=== PATIENT | male | born 1950 | race Caucasian/White ===

== ENCOUNTER 2017-11-01 16:37 | Inpatient (IN) | payer SELFPAY ==
[2017-11-01 16:59] LABS: Bilirubin Negative (Negative); Blood, Urine Negative (Negative); Clarity CLEAR (Clear); Glucose, Urine (Dipstick) Negative (Negative); Leukocyte Negative (Negative); Nitrite Negative (Negative); Protein, Urine (Dipstick) Negative (Neg-Trace); Specific Gravity, Urine 1.011 (1.002-1.036); pH, Urine 7.5 (5.0-9.0)
[2017-11-01 17:07] LABS: #Lymphocytes 0.9 thou/uL (1.20-3.40); #Monocytes 0.7 thou/uL (0.11-0.59); #Neutrophils 5.4 thou/uL (1.40-6.50); %Basophils 0.2 % (0.0-1.0); %Eosinophils 0.3 % (0.0-10.0); %Lymphocytes 12.8 % (21.0-51.0); %Monocytes 9.6 % (0.0-10.0); Hemoglobin 11.7 g/dL (14.0-18.0); Mean Corpuscular HGB CONC 35.4 g/dL (32.0-36.0); Mean Corpuscular Hemoglobin 32.1 pg (27.0-31.0); Mean Corpuscular Volume 90.7 fl (80.0-94.0); Mean Platelet Volume 6.8 fL (7.4-10.4); Platelet Count 290 thou/uL (130-400); RBC Distribution Width 12.3 % (11.5-14.5); Red Blood Cell (RBC) Count 3.66 mill/uL (4.70-6.10)
--- NOTE | 2017-11-01 17:23 | CT ---
HEAD CT NONCONTRAST 11/01/17 INDICATION: Altered mental status. No prior comparison. FINDINGS: Mild prominence of the ventricular system is present slightly out of proportion to the size of the ce rebral sulci. There is periventricular white matter hypoattenuation. No intracranial hemorrhage, mass effect or midline shift. There are fluid levels of the maxillary sinuses as well as scattered paran luz maria sinus mucosal thickening. IMPRESSION: 1. No acute intracranial hemorrhage. 2. Mild enlargement of the ventricular system slightly out of proportion for the size of the cer ebral sulci. Recommend clinical correlation to exclude normal pressure hydrocephalus, which is a clin ical diagnosis. 3. Periventricular white matter hypoattenuation which could be on the basis of ischemic disease versus sequela from transependymal CSF migration. 4. Bilateral maxillary sinus fluid levels. Correlate for evidence of acute sinusitis. POS: [facility]
[2017-11-01 17:27] LABS: ALT (SGPT) 9 U/L (8-55); AST (SGOT) 19 U/L (5-34); Albumin 4.1 g/dL (3.4-4.8); Alkaline Phosphatase 75 U/L (40-150); Anion Gap 13 mmol/L (10-20); BUN (Urea Nitrogen) 12 mg/dL (8.4-25.7); Bilirubin, Total 0.8 mg/dL (0.2-1.2); Calc. Creatinine Clearance 0 mL/min (70-130); Calcium 9.6 mg/dL (7.8-10.44); Carbon Dioxide 22 mmol/L (23-31); Chloride 79 mmol/L (98-107); Estimated GFR-MDRD Greater than 90; Globulin 2.8 g/dL (2.4-3.5); Glucose 107 mg/dL (80-115); Potassium 4.2 mmol/L (3.5-5.1); Protein, Total 6.9 g/dL (5.8-8.1)
[2017-11-01 17:32] LABS: CKMB 6.2 ng/mL (0-6.6); Troponin I Less than 0.010 ng/mL (< 0.028)
[2017-11-01 17:35] LABS: Sodium 110 mmol/L (136-145)
[2017-11-01] MEDS ORDERED: Ondansetron ODT 4 MG TAB SL PRN (20:54)
[2017-11-01] MEDS ORDERED: Acetaminophen 325 MG TAB PO PRN (20:54)
[2017-11-01] MEDS ORDERED: Ondansetron HCl/PF 4 MG/2 ML Vial IVP PRN (20:54)
[2017-11-01] MEDS: Sodium Chloride 0.9% 1,000 ML IV SCH ×2 (21:13→21:51)
[2017-11-01] MEDS: Famotidine/PF 20 mg/2ml Vial SLOW IVP SCH (21:51)
[2017-11-01] MEDS ORDERED: Polyethylene Glycol 3350 17 GM Packet PO PRN ×2 (22:31→23:38)
[2017-11-01] MEDS ORDERED: Preparation H HC 1% Cream 26 GM TUBE TOP PRN ×2 (22:41→23:38)
[2017-11-01] MEDS ORDERED: Ibuprofen 200 MG TAB PO PRN (22:42)
[2017-11-01] MEDS ORDERED: carBAMazepine 200 MG TAB PO SCH (22:45)
[2017-11-01] MEDS ORDERED: Ziprasidone 20 MG CAP PO SCH (22:45)
[2017-11-01] MEDS ORDERED: Carbidopa/Levodopa 10-100 mg Tablet PO SCH (22:45)
[2017-11-01] MEDS ORDERED: Lisinopril 20 MG TAB PO SCH (22:45)
[2017-11-01 22:52] VITALS: BMI 21.2
[2017-11-01] MEDS ORDERED: IBUPROFEN PO PRN (23:38)
[2017-11-02 00:13] LABS: Anion Gap 12 mmol/L (10-20); BUN (Urea Nitrogen) 9 mg/dL (8.4-25.7); Calc. Creatinine Clearance 97 mL/min (70-130); Calcium 8.9 mg/dL (7.8-10.44); Carbon Dioxide 21 mmol/L (23-31); Chloride 84 mmol/L (98-107); Estimated GFR-MDRD Greater than 90; Glucose 89 mg/dL (80-115); Potassium 3.8 mmol/L (3.5-5.1)
[2017-11-02 00:16] LABS: Sodium 113 mmol/L (136-145)
[2017-11-02 00:36] LABS: Osmolality, Serum 231 mOsm/kg (280-295)
[2017-11-02 01:05] LABS: Osmolality, Urine 181 mOsm/kg (300-900)
[2017-11-02 01:09] LABS: Sodium, Urine 37 mmol/L (Not Available)
[2017-11-02] MEDS: Diabetic Tussin 200 MG/10 ML UDCUP PO PRN (05:10)
[2017-11-02 05:50] LABS: Acanthocytes SLIGHT = 1-5 cells (100X) (None Seen); Band 5 % (5-11); Eosinophils 1 % (0-10); Hemoglobin 10.9 g/dL (14.0-18.0); Lymphocytes 22 % (21-51); MDiff Complete? YES; Mean Corpuscular HGB CONC 33.9 g/dL (32.0-36.0); Mean Corpuscular Hemoglobin 31.4 pg (27.0-31.0); Mean Corpuscular Volume 92.4 fl (80.0-94.0); Monocytes 9 % (0-10); Neutrophil 62 % (42-75); Platelet Count 222 thou/uL (130-400); RBC Distribution Width 12.2 % (11.5-14.5); Reactive Lymphocytes 1 % (0-10); Red Blood Cell (RBC) Count 3.49 mill/uL (4.70-6.10); White Blood Cell (WBC) Count 4.3 thou/uL (4.8-10.8)
[2017-11-02] MEDS: Sodium Chloride 0.9% 1,000 ML IV SCH (06:54)
--- NOTE | 2017-11-02 06:59 | HP ---
PRIMARY CARE PHYSICIAN: Dedra Patel MD HISTORY OF PRESENT ILLNESS: This is a 66-year-old male with a history of PTSD, Parkinson's, presents for mental status changes. The patient himself is unfortunately a very poor historian at this point in time, he is oriented to himself only. He thinks that he is in care home. He is unable to recall a month, date, or year and is unable to provide much of the history other than he is allergic to TETRACYCLINE. The patient is unable to tell me why he is here and endorses a mild headache, but otherwise has no other focal complaints. Per the ER records, it appears that he was sent in from his residential fpc for having altered mental status from approximately 1:00 p.m. to 3:00 p.m. earlier today. Per ER records, it seems that the fpc told EMS services that the patient did not know where he was, and had new onset gait difficulties. It is not clear, but it appears that at the time of EMS arrival, the patient is at his baseline. I am not sure if I am seeing the patient currently at his baseline or not. REVIEW OF SYSTEMS: Unable to obtain secondary to the above. HOME MEDICATIONS: As per indicated in the electronic medical record which is derived from records from the patient's fpc. The patient is unable to reconcile with me due to his poor cognitive status. ALLERGIES: The patient states that he is allergic to TETRACYCLINE. Unsure if this is a comprehensive list of allergies or not. PAST MEDICAL HISTORY: 1. The patient himself is unable to provide any history; however, per his ER record, it appears that he has a history of PTSD. 2. Depression. 3. Parkinsonism. 4. Mood disorder. 5. Constipation. 6. Hepatitis C. 7. Hypoosmolality. 8. Hyponatremia. SOCIAL HISTORY: Grossly unknown other than that the patient at one point in the recent past was in care home and currently at a fpc. The patient himself is unable to provide any further history. There are no obvious records that I could find in the emergency department at this point in time. PHYSICAL EXAMINATION: VITAL SIGNS: Temperature 97.4, pulse of 81, blood pressure 144/80, respirations 17, satting 100% on room air. GENERAL: Patient is seated in the hospital stretcher. He is awake. He is alert. He is conversant, answers questions; however accuracy of his answers is unclear as he is oriented only to himself. HEENT: Slightly dry mucous membranes. Poor dentition. Pupils are equal. Ocular motions are intact. The patient is normocephalic, atraumatic. Pupils are reactive. CARDIOVASCULAR: S1, S2. Pulses 2+ bilateral upper extremities. No murmurs, rubs, or gallops. RESPIRATORY: Reasonable air movement. No wheezes, rales, or rhonchi. Bilateral breath sounds. ABDOMEN: Positive bowel sounds, soft, nontender to palpation. MUSCULOSKELETAL: The patient is moving all 4 extremities equally. GENITOURINARY: For whatever reason, the patient appears to have self removed his briefs and he continues to do self manipulating his genitals during the encounter. LABORATORY DATA: WBC 7.0, hemoglobin 11.7, hematocrit 33.1, platelets 290. Sodium 110, potassium 4.2, chloride 79, bicarbonate 22, BUN 12, creatinine 0.79 , glucose 107, calcium 9.6, total bilirubin 0.8, AST 19, ALT 9, alkaline phosphatase 75, CK-MB 6.2, troponin less than 0.01. Serum total protein 6.9, albumin 4.1. UA is grossly bland. IMAGING: CT of the brain: Impression: No acute intracranial hemorrhage. Mild enlargement of the ventricular system, slightly out of proportion for the size of the cerebral sulci. Recommend clinical correlation to exclude normal pressure hydrocephalus which is a clinical diagnosis. Periventricular white matter hypoattenuation, which could be on the basis of ischemic disease versus sequelae from transependymal CSF migration. Bilateral maxillary sinus fluid levels. "No evidence of acute sinusitis." ASSESSMENT AND PLAN: A 66-year-old male brought in for altered mental status. 1. Altered mental status. The patient has been difficult to assess during this initial visit secondary to an unknown baseline for the patient with conflicting information passed on from [facility], EMS, ER regarding his actual baseline. 2. Hyponatremia. The patient has a noted history of hyponatremia in his records, but I do not have any baseline values for his sodium. That being said , he certainly has appreciably low sodium, we will consider starting with normal saline, serial BMPs with frequent neurological checks. The patient is currently be admitted to [facility]. I appreciate nephrology consultation for management of his hyponatremia. Will discontinue his HCTZ, check serum and urine osmols. Close serial neurological examinations. 3. Questionable mild hydrocephalus. This could also mild normal pressure hydrocephalus. Unclear if this is part of the etiology for the patient's unstable gait. It is unclear what sort of baseline gait the patient truly has. We will recommend close neurological monitoring and with gradual correction of the hyponatremia. If there is continued headache, gait difficulty, or altered mental status, consider a lumbar puncture for the patient. We will request a full set of records from the patient's fpc facility. 4. History of chronic hepatitis C. We will check ammonia level. His current LFTs appeared to be unremarkable. This is also to be contributing factor of his presentation. Continue home lactulose. Thank you for allowing me to participate in the care of your patient. If questions or concerns, contact me at [facility], the patient is admitted to [facility]. The patient is presumed to be FULL CODE as he is currently unable to make his own medical decisions and has no documented assistant district attorney or next of kin. JESSICA
[2017-11-02 07:01] LABS: Anion Gap 16 mmol/L (10-20); BUN (Urea Nitrogen) 8 mg/dL (8.4-25.7); Calc. Creatinine Clearance 91 mL/min (70-130); Calcium 8.8 mg/dL (7.8-10.44); Carbon Dioxide 16 mmol/L (23-31); Chloride 89 mmol/L (98-107); Estimated GFR-MDRD Greater than 90; Glucose 111 mg/dL (80-115); Potassium 3.6 mmol/L (3.5-5.1)
[2017-11-02 07:10] LABS: Sodium 117 mmol/L (136-145)
--- NOTE | 2017-11-02 08:52 | PRG ---
DATE OF SERVICE: 11/02/2017 SUBJECTIVE: The patient is seen and examined at bedside. He is doing significantly better. He is a ble to recognize the place that he is in the hospital. He knows the time, place and location. His m ental condition improved significantly. He just ate breakfast without any problems. OBJECTIVE: VITAL SIGNS: Blood pressure is 132/82, temperature is 98.1, respiratory rate is 18, O2 saturation is 96% on room air. HEENT: His head is atraumatic, normocephalic. Eyes PERRLA. Conjunctivae pinkish. Oral mucosa is m oist. NECK: Supple, no lymphadenopathy. Thyroid is not palpable. LUNGS: Breath sounds diminished at the right base. No wheezing, no rales. HEART: S1, S2 normal, no S3, no S4. ABDOMEN: Soft, nontender, bowel sounds are present. No organomegaly. EXTREMITIES: No clubbing, cyanosis or edema. NEUROLOGIC: He is able to follow my commands. He is able to move his all 4 extremities. He is aler t and oriented x4. There are no motor or sensory deficits at this point. Cranial nerves are intact. LABORATORY DATA: Showed a white count of 4.3, hemoglobin of 10.9, hematocrit 32.2, platelet count is 222. Sodium of 117, potassium 3.6, chloride 89, CO2 16, BUN 8, creatinine 0.74. The rest of chemis try is within normal limits. Urine osmolality is 181 and urine sodium is 37. IMPRESSION: 1. Altered mental status, significantly improved with improvement of his hyponatremia, most likely r elated to that. 2. Hyponatremia with low serum osmolality in euvolemic patient, so suspicion is for an syndrome of i nappropriate antidiuretic hormone secretion of unclear etiology at this point. 3. Questionable marked hydrocephalus on the CT. We will assess this along with the clinical present ation whether this is a real concern. 4. History of chronic hepatitis C, chronic. 5. Chronic cough again of unclear etiology. We will obtain chest x-ray. He is on cough medications at this point and Pulmonary will see him. DISCUSSION: His sodium improved from 110 to 117 with 100 mL of normal saline IV piggyback, so we are going to stop his IV fluids at this point and go back to rn care manager whether there is some concern regarding the velocity of the sodium improvement at this point. Dr. Jay is spa consultant. We will try to get hold of him and clarify that, so as I mentioned above, I will obtain a chest x-ray. Pulmonary w ill see the patient and clinically he improved to the point that he does not need IV fluids and we wi ll keep on sodium restriction.
[2017-11-02] MEDS ORDERED: Amlodipine 5 MG TAB PO SCH ×2 (09:00)
[2017-11-02] MEDS ORDERED: Non-Formulary Item 1 EACH (Omeprazole [Omeprazole] 40 MG) PO SCH (09:00)
[2017-11-02] MEDS ORDERED: FLU VACC TS2017-18 (>65YR) 0.5 ML SYRINGE IM ONE (09:00)
[2017-11-02] MEDS ORDERED: Prevnar 13-Val Conj/PF 0.5 ML SYRINGE IM ONE (09:00)
[2017-11-02] MEDS ORDERED: Docusate 100 MG CAP PO SCH (09:00)
[2017-11-02] MEDS ORDERED: ZIPRASIDONE HCL 40 MG PO SCH (09:00)
[2017-11-02] MEDS ORDERED: Lisinopril 20 MG TAB PO SCH ×2 (09:00)
[2017-11-02] MEDS ORDERED: carBAMazepine 200 MG TAB PO SCH (09:00)
[2017-11-02] MEDS ORDERED: Benztropine 1 MG TAB PO SCH (09:00)
[2017-11-02] MEDS ORDERED: Hydrochlorothiazide 25 MG TAB PO SCH ×2 (09:00)
[2017-11-02] MEDS ORDERED: Citalopram 20 MG TAB PO SCH ×2 (09:00)
[2017-11-02] MEDS ORDERED: Carbidopa/Levodopa 10-100 mg Tablet PO SCH (09:00)
[2017-11-02] MEDS: carBAMazepine 200 MG TAB PO SCH ×2 (09:11→20:42)
[2017-11-02] MEDS: Famotidine/PF 20 mg/2ml Vial SLOW IVP SCH ×2 (09:11→20:44)
[2017-11-02] MEDS: Benztropine 1 MG TAB PO SCH ×2 (09:11→20:42)
[2017-11-02] MEDS: Ziprasidone 20 MG CAP PO SCH ×2 (09:11→15:20)
[2017-11-02] MEDS: Docusate 100 MG CAP PO SCH ×2 (09:11→20:44)
[2017-11-02] MEDS: Carbidopa/Levodopa 10-100 mg Tablet PO SCH ×3 (09:11→20:42)
[2017-11-02] MEDS: Amlodipine 5 MG TAB PO SCH ×2 (09:12→20:43)
[2017-11-02] MEDS: Enoxaparin Sodium 40 MG/0.4 ML SYRINGE SC SCH (09:12)
--- NOTE | 2017-11-02 10:05 | RAD ---
CHEST 1 VIEW: HISTORY: Cough. FINDINGS: No comparison. Cardiac silhouette is magnified by projection. Pulmonary vasculature is unremarkable . Lungs are hyperinflated with scattered areas of linear scarring. Calcified granulomata are consis tent with healed granulomatous disease. There is no lobar consolidation or evidence of pneumothorax. IMPRESSION: Chronic obstructive pulmonary disease. POS: [facility]
--- NOTE | 2017-11-02 11:12 | CON ---
DATE OF CONSULTATION: 11/02/2017 NEPHROLOGY CONSULTATION REASON FOR CONSULTATION: Hyponatremia. TIME OF CONSULTATION: 9:00 a.m. HISTORY OF PRESENT ILLNESS: This is a very pleasant 66-year-old gentleman who presented to the [facility] who cannot give history, but was noted to have a sodium of 110, so I was consulted on 11/02/2017 at 9:00 a.m. The patient's sodium has corrected from 110 to 117 this morning with normal saline. Th e patient denies any complaints, no headache, numbness, tingling or weakness. PAST MEDICAL HISTORY: Significant for hypertension, Parkinson's, PTSD, history of hepatitis C, hypon atremia, history of excessive fluid intake, history of some mental disorder. SOCIAL FAMILY HISTORY: Patient is recently in longterm. The patient has an electronic monitor. Has no history of alcohol or drug use. REVIEW OF SYSTEMS: Unobtainable. PHYSICAL EXAMINATION: GENERAL: Patient is awake, alert. VITAL SIGNS: Afebrile, pulse 82, breathing at 16, blood pressure 132/82. GENERAL APPEARANCE AND MENTAL STATUS: Fair. HEAD/NECK: Normocephalic, atraumatic. EYES: EOMI. No deformity. EARS: Clear. No ulcers. NOSE: Intact. No lesions. MOUTH: Clear. No discharge. THROAT: Clear. No exudate. LUNGS: Clear. No crackles. CARDIAC: S1, S2. No rub. ABDOMEN: Benign. BS+. GENITALIA/RECTUM: Goyal absent. BACK/EXTREMITIES: Edema 0+ Ulcer-. NEUROLOGICAL: Alert and motor intact. SKIN: Rash- Bruise- LYMPHATICS: Edema- Ulcer-. LABORATORY DATA: Show sodium 117, creatinine 0.7. ASSESSMENT AND RECOMMENDATIONS: 1. Hyponatremia, most likely because of excessive fluid intake, likely appears to be acute. I would recommend no fluid restriction and monitor sodium closely. If the sodium corrects any further, we w ill try to keep the sodium less than 120 in 48 hours. 2. Hypertension, stable. 3. Medications based on glomerular filtration rate are appropriate.
[2017-11-02 12:55] LABS: Anion Gap 12 mmol/L (10-20); BUN (Urea Nitrogen) 9 mg/dL (8.4-25.7); Calc. Creatinine Clearance 93 mL/min (70-130); Calcium 9.2 mg/dL (7.8-10.44); Carbon Dioxide 24 mmol/L (23-31); Chloride 88 mmol/L (98-107); Estimated GFR-MDRD Greater than 90; Glucose 80 mg/dL (80-115); Potassium 4.1 mmol/L (3.5-5.1); Sodium 120 mmol/L (136-145)
[2017-11-02 19:24] LABS: Anion Gap 9 mmol/L (10-20); BUN (Urea Nitrogen) 9 mg/dL (8.4-25.7); Calc. Creatinine Clearance 87 mL/min (70-130); Calcium 8.9 mg/dL (7.8-10.44); Carbon Dioxide 27 mmol/L (23-31); Chloride 90 mmol/L (98-107); Estimated GFR-MDRD Greater than 90; Glucose 143 mg/dL (80-115); Sodium 122 mmol/L (136-145)
--- NOTE | 2017-11-02 20:17 | CON ---
DATE OF CONSULTATION: 11/02/2017 HISTORY OF PRESENT ILLNESS: Mr. Cantu is a 66-year-old male, pulmonary consult, who was in the [facility]. He has a history of hyponatremia in the past. He is actually a poor historian. He apparently was in [facility] in the [place] because he still wearing a [place] tracking bracelet. It is unclear whether or not they know he is over here and still has a bracelet. It seems unusual, this would be in place. It was still functional and he is in [place]. In any event, he presented with hyponatremia that is severe. This has been partially corrected. I was consulted to assist in his management because of his presence in the IMU. He says several months ago he had to be in the hospital for low sodium. He said they "gave me sodium back" to fix my high sodium, but they did not change any of his medicines. PAST MEDICAL HISTORY: Remarkable for Parkinson's disease, hypertension, hepatitis C. He has been told in the past he drinks too much water. He says he has 8 large glasses of water a day. SOCIAL HISTORY: He is a nonsmoker, nondrinker. ALLERGIES: He reports no drug allergies. FAMILY HISTORY: Negative for lung disease at an early age. REVIEW OF SYSTEMS: 12 point system review otherwise negative. He actually has no complaints. PHYSICAL EXAMINATION: GENERAL: He has a latency of response it is about 3-4 seconds for every question. VITAL SIGNS: He is afebrile, heart rate 72, respiratory rate 20, oximetry is 98 on room air, blood pressure 118/77. HEENT: Pupils are equal and reactive. Sclerae is anicteric. He is kyphotic. LUNGS: Clear. HEART: Regular rhythm. S1 and S2 are normal. ABDOMEN: Soft and nontender. EXTREMITIES: Without clubbing, cyanosis, or edema. He has a left black tracking bracelet on his lower extremity. LABORATORY DATA: White count 4.3, hemoglobin 10.9, platelets 222. Sodium is up from 113 last night to 120 today. His electrolytes are normal. IMPRESSION: Hyponatremia, recurrent. 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 We will discontinue this. I have discussed discontinuing this with him. He says it has helped his depression, but also tells me he has been depressed lately. I would fluid restriction him with 1000 mL today. He can move out of the Intermediate Care Unit at any time. A 70-minute consult was greater than 50% time spending in coordinating care. 70 minutes spent on consult of that time 50% was spent on unit with coordination of care. JESSICA
[2017-11-03 00:19] LABS: Anion Gap 10 mmol/L (10-20); BUN (Urea Nitrogen) 10 mg/dL (8.4-25.7); Calc. Creatinine Clearance 81 mL/min (70-130); Calcium 8.8 mg/dL (7.8-10.44); Carbon Dioxide 26 mmol/L (23-31); Chloride 91 mmol/L (98-107); Estimated GFR-MDRD Greater than 90; Glucose 113 mg/dL (80-115); Potassium 3.5 mmol/L (3.5-5.1); Sodium 123 mmol/L (136-145)
[2017-11-03] MEDS: Diabetic Tussin 200 MG/10 ML UDCUP PO PRN (04:01)
[2017-11-03 09:05] LABS: #Basophils 0.1 thou/uL (0.0-0.2); #Lymphocytes 0.9 thou/uL (1.20-3.40); #Monocytes 0.6 thou/uL (0.11-0.59); #Neutrophils 2.7 thou/uL (1.40-6.50); %Basophils 1.2 % (0.0-1.0); %Eosinophils 0.3 % (0.0-10.0); %Lymphocytes 21.1 % (21.0-51.0); %Monocytes 13.9 % (0.0-10.0); %Neutrophils 63.6 % (42.0-75.0); Hemoglobin 11.3 g/dL (14.0-18.0); Mean Corpuscular HGB CONC 33.2 g/dL (32.0-36.0); Mean Corpuscular Hemoglobin 30.9 pg (27.0-31.0); Mean Corpuscular Volume 93.2 fl (80.0-94.0); Mean Platelet Volume 6.9 fL (7.4-10.4); Platelet Count 241 thou/uL (130-400); RBC Distribution Width 12.4 % (11.5-14.5); Red Blood Cell (RBC) Count 3.67 mill/uL (4.70-6.10); White Blood Cell (WBC) Count 4.2 thou/uL (4.8-10.8)
[2017-11-03 09:25] LABS: Anion Gap 10 mmol/L (10-20); BUN (Urea Nitrogen) 8 mg/dL (8.4-25.7); Calc. Creatinine Clearance 86 mL/min (70-130); Carbon Dioxide 23 mmol/L (23-31); Chloride 92 mmol/L (98-107); Estimated GFR-MDRD Greater than 90; Glucose 110 mg/dL (80-115); Potassium 3.9 mmol/L (3.5-5.1); Sodium 121 mmol/L (136-145)
[2017-11-03] MEDS: Ziprasidone 20 MG CAP PO SCH ×2 (10:21→18:25)
[2017-11-03] MEDS: Benztropine 1 MG TAB PO SCH ×2 (10:21→20:07)
[2017-11-03] MEDS: Amlodipine 5 MG TAB PO SCH ×2 (10:21→20:07)
[2017-11-03] MEDS: Famotidine/PF 20 mg/2ml Vial SLOW IVP SCH ×2 (10:22→20:08)
[2017-11-03] MEDS: Docusate 100 MG CAP PO SCH ×2 (10:22→20:07)
[2017-11-03] MEDS: carBAMazepine 200 MG TAB PO SCH ×2 (10:22→20:07)
[2017-11-03] MEDS: Carbidopa/Levodopa 10-100 mg Tablet PO SCH ×3 (10:22→20:07)
[2017-11-03] MEDS: Enoxaparin Sodium 40 MG/0.4 ML SYRINGE SC SCH (10:22)
--- NOTE | 2017-11-03 12:11 | PRG ---
DATE OF SERVICE: 11/03/2017 SUBJECTIVE: Mr. Cantu did well overnight. OBJECTIVE: VITAL SIGNS: He is afebrile. Heart rate 67, respiratory rate is 18, oximetry is 97% on room air and blood pressure 143/85. LUNGS: Clear. HEART: Regular rhythm. LABORATORY DATA: White count is 4.2, hemoglobin 11.3 and platelets 241. Sodium is 121. Remainder o f his electrolytes are unremarkable. IMPRESSION: Syndrome of inappropriate antidiuretic hormone, most likely because of Celexa. PLAN: Transfer out of the intermediate care unit. Continue to monitor his electrolytes.
[2017-11-03 12:43] LABS: Anion Gap 9 mmol/L (10-20); BUN (Urea Nitrogen) 8 mg/dL (8.4-25.7); Calc. Creatinine Clearance 86 mL/min (70-130); Calcium 8.9 mg/dL (7.8-10.44); Carbon Dioxide 25 mmol/L (23-31); Chloride 91 mmol/L (98-107); Estimated GFR-MDRD Greater than 90; Glucose 125 mg/dL (80-115); Potassium 3.7 mmol/L (3.5-5.1); Sodium 121 mmol/L (136-145)
--- NOTE | 2017-11-03 13:36 | PDOC.PN ---
- Subjective Encounter Start Date: 11/03/17 Encounter Start Time: 13:39 Subjective: Only complaint is a cough which is chronic -: No acute events overnight -: CXR- [employer]. Nothing acute. - Objective Resuscitation Status: Resuscitation Status FULL:Full Resuscitation Vital Signs & Weight: Vital Signs (12 hours) Temp Pulse Resp BP Pulse Ox 11/03/17 11:46 98.4 F 67 18 143/85 H 97 11/03/17 10:21 65 11/03/17 08:00 98.4 F 65 18 98 11/03/17 07:48 98.4 F 65 18 122/71 98 11/03/17 03:54 97.7 F 70 15 128/62 95 Weight Weight 142 lb 14.4 oz I&O: 11/02/17 11/03/17 11/04/17 06:59 06:59 06:59 Intake Total 3200 1665 Output Total 1830 2550 Balance 1370 -885 Result Diagrams: 11/03/17 08:57 11/03/17 12:09 Phys Exam - Physical Examination Constitutional: NAD HEENT: PERRLA, moist MMs, sclera anicteric Neck: supple, full ROM Respiratory: no wheezing, no rales, no rhonchi, clear to auscultation bilateral Cardiovascular: RRR, no significant murmur, no rub Gastrointestinal: soft, non-tender, no distention, positive bowel sounds Musculoskeletal: no edema, pulses present Neurological: non-focal, moves all 4 limbs Tremors, worse on left upper extremity Psychiatric: normal affect, A&O x 3 Skin: no rash, normal turgor Dx/Plan (1) SIADH (syndrome of inappropriate ADH production) Status: Acute Comment: Likely 2/2 Celexa. has been discontinued. AMS has resolved. Will continue fluid restriction and monitor. (2) Parkinson disease Code(s): G20 - PARKINSON'S DISEASE Status: Chronic Comment: Continue home medications. (3) Acute encephalopathy Code(s): G93.40 - ENCEPHALOPATHY, UNSPECIFIED Status: Resolved Comment: s/s hyponatremia (4) Chronic hepatitis Code(s): K73.9 - CHRONIC HEPATITIS, UNSPECIFIED Status: Chronic Comment: Hep C (5) HTN (hypertension) Code(s): I10 - ESSENTIAL (PRIMARY) HYPERTENSION Status: Acute Qualifiers: Hypertension type: essential hypertension Qualified Code(s): I10 - Essential (primary) hypertension Comment: Continue Amlodipine. HCTS held (SiADH) and Lisinopril. - Plan cont current plan of care, PT/OT, DVT proph w/lovenox Stable. Will transfer out of CCU -: Monitor serum soium * .
[2017-11-03 18:53] LABS: Anion Gap 10 mmol/L (10-20); BUN (Urea Nitrogen) 8 mg/dL (8.4-25.7); Calc. Creatinine Clearance 82 mL/min (70-130); Calcium 9.4 mg/dL (7.8-10.44); Carbon Dioxide 27 mmol/L (23-31); Chloride 92 mmol/L (98-107); Estimated GFR-MDRD Greater than 90; Glucose 174 mg/dL (80-115); Potassium 3.7 mmol/L (3.5-5.1); Sodium 125 mmol/L (136-145)
--- NOTE | 2017-11-04 00:06 | PRG ---
DATE OF SERVICE: 11/03/2017 SUBJECTIVE: Patient was seen and examined at bedside and overnight events noted. Patient denies any shortness of breath or chest pain or palpitation. No history of nausea or vomiting or diarrhea or f ever or chills or cramps. OBJECTIVE: GENERAL: This is a well-built white male, in no apparent distress. VITAL SIGNS: Temperature 97.8, pulse 72, respiration 18, blood pressure 126/70. HEENT: Atraumatic, normocephalic. Oral mucosa is moist. NECK: Supple. CARDIOVASCULAR: S1, S2 heard. Rate and rhythm regular. RESPIRATORY: Clear to auscultation. GASTROINTESTINAL: Abdomen is soft. MUSCULOSKELETAL: No tenderness. No edema. DERMATOLOGIC: No skin rash. NEUROLOGIC: Alert and awake and oriented x3. No focal neurologic deficits. Moving all the extremiti es. PSYCHIATRIC: Mood and affect normal. LABORATORY DATA: Potassium is 3.7, sodium is 121, BUN is 8, and creatinine 0.7. ASSESSMENT AND PLAN: 1. Hyponatremia, most likely is from polydipsia. Medication, Celexa being stopped. Sodium level is stable. Patient is asymptomatic. We will monitor. 2. Hypochloremia. 3. Hypertension. 4. Edema . 5. Continue on fluid restriction and monitor sodium and we will follow.
[2017-11-04 00:33] LABS: Anion Gap 10 mmol/L (10-20); BUN (Urea Nitrogen) 10 mg/dL (8.4-25.7); Calc. Creatinine Clearance 81 mL/min (70-130); Calcium 8.8 mg/dL (7.8-10.44); Carbon Dioxide 26 mmol/L (23-31); Chloride 96 mmol/L (98-107); Estimated GFR-MDRD Greater than 90; Glucose 101 mg/dL (80-115); Potassium 3.8 mmol/L (3.5-5.1); Sodium 128 mmol/L (136-145)
[2017-11-04 04:39] LABS: #Monocytes 0.5 thou/uL (0.11-0.59); #Neutrophils 1.8 thou/uL (1.40-6.50); %Basophils 1.3 % (0.0-1.0); %Eosinophils 0.4 % (0.0-10.0); %Lymphocytes 30.4 % (21.0-51.0); %Monocytes 13.9 % (0.0-10.0); %Neutrophils 54.1 % (42.0-75.0); Hemoglobin 10.4 g/dL (14.0-18.0); Mean Corpuscular HGB CONC 33.3 g/dL (32.0-36.0); Mean Corpuscular Hemoglobin 31.3 pg (27.0-31.0); Mean Corpuscular Volume 93.9 fl (80.0-94.0); Mean Platelet Volume 6.8 fL (7.4-10.4); Platelet Count 228 thou/uL (130-400); RBC Distribution Width 12.4 % (11.5-14.5); Red Blood Cell (RBC) Count 3.32 mill/uL (4.70-6.10); White Blood Cell (WBC) Count 3.4 thou/uL (4.8-10.8)
[2017-11-04 04:54] LABS: Anion Gap 8 mmol/L (10-20); BUN (Urea Nitrogen) 10 mg/dL (8.4-25.7); Calc. Creatinine Clearance 81 mL/min (70-130); Calcium 8.9 mg/dL (7.8-10.44); Carbon Dioxide 27 mmol/L (23-31); Chloride 95 mmol/L (98-107); Estimated GFR-MDRD Greater than 90; Glucose 94 mg/dL (80-115); Potassium 3.8 mmol/L (3.5-5.1); Sodium 126 mmol/L (136-145)
[2017-11-04] MEDS: Carbidopa/Levodopa 10-100 mg Tablet PO SCH ×3 (08:38→22:25)
[2017-11-04] MEDS: Docusate 100 MG CAP PO SCH ×2 (08:38→22:19)
[2017-11-04] MEDS: Benztropine 1 MG TAB PO SCH ×2 (08:38→22:19)
[2017-11-04] MEDS: Famotidine/PF 20 mg/2ml Vial SLOW IVP SCH ×2 (08:38→22:21)
[2017-11-04] MEDS: Enoxaparin Sodium 40 MG/0.4 ML SYRINGE SC SCH (08:39)
[2017-11-04] MEDS: carBAMazepine 200 MG TAB PO SCH ×2 (08:39→22:20)
[2017-11-04] MEDS: Amlodipine 5 MG TAB PO SCH ×2 (08:39→22:20)
[2017-11-04] MEDS: Ziprasidone 20 MG CAP PO SCH ×2 (08:39→17:30)
--- NOTE | 2017-11-04 14:20 | PRG ---
DATE OF SERVICE: 11/04/2017 SUBJECTIVE: Patient was seen and examined at bedside and overnight events noted. Patient denies any shortness of breath or chest pain or palpitation. No history of nausea or vomiting or diarrhea or f ever or chills or cramps. OBJECTIVE: GENERAL: This is a well-built male in no apparent distress. VITAL SIGNS: Temperature 98.0, pulse 74, respiratory 18, blood pressure 122/70. HEENT: Atraumatic, normocephalic. Oral mucosa is moist. NECK: Supple. CARDIOVASCULAR: S1, S2 heard. Rate and rhythm regular. RESPIRATORY: Clear to auscultation. GASTROINTESTINAL: Abdomen is soft. MUSCULOSKELETAL: No tenderness, no edema. DERMATOLOGIC: No skin rash. NEUROLOGIC: Alert and awake and oriented x3. No focal neurologic deficits. Moving all the extremit ies. PSYCHIATRIC: Mood and affect normal. LABORATORY DATA: Sodium is 126, BUN is 10, creatinine 0.8. ASSESSMENT AND PLAN: 1. Hyponatremia, most likely from polydipsia and medications. Sodium level is stable. Most likely baseline sodium, continue on fluid restriction and follow. 2. Hypochloremia. 3. Hypertension, stable. 4. Edema, controlled. 5. Continue on fluid restriction.
--- NOTE | 2017-11-04 14:36 | PDOC.PN ---
- Subjective Encounter Start Date: 11/04/17 Encounter Start Time: 14:35 Subjective: More alert today. AO x 3 -: No acute events overnight. - Objective Resuscitation Status: Resuscitation Status FULL:Full Resuscitation MAR Reviewed: Yes Vital Signs & Weight: Vital Signs (12 hours) Temp Pulse Resp BP Pulse Ox 11/04/17 08:00 98 F 75 18 122/70 100 11/04/17 04:00 98.2 F 72 18 148/88 H 96 Weight Weight 142 lb 14.4 oz I&O: 11/03/17 11/04/17 11/05/17 06:59 06:59 06:59 Intake Total 1665 840 800 Output Total 2550 1050 Balance -885 -210 800 Result Diagrams: 11/04/17 03:58 11/04/17 03:58 Additional Labs: Accuchecks 11/04/17 11/03/17 04:37 15:45 POC Glucose 120 H 86 Phys Exam - Physical Examination Constitutional: NAD HEENT: PERRLA, moist MMs, sclera anicteric Neck: supple, full ROM Respiratory: no wheezing, no rales, no rhonchi, clear to auscultation bilateral Cardiovascular: RRR, no significant murmur, no rub Gastrointestinal: soft, non-tender, no distention, positive bowel sounds Musculoskeletal: no edema, pulses present Neurological: non-focal, moves all 4 limbs Psychiatric: normal affect, A&O x 3 Skin: no rash Dx/Plan (1) SIADH (syndrome of inappropriate ADH production) Status: Acute Comment: mentation improved. Likely 2/2 Celexa. has been discontinued. AMS has resolved. Will continue fluid restriction and monitor. Nephrology on board. Recs appreciated. (2) Parkinson disease Code(s): G20 - PARKINSON'S DISEASE Status: Chronic Comment: Continue home medications. (3) Chronic hepatitis Code(s): K73.9 - CHRONIC HEPATITIS, UNSPECIFIED Status: Chronic Comment: Hep C (4) HTN (hypertension) Code(s): I10 - ESSENTIAL (PRIMARY) HYPERTENSION Status: Acute Qualifiers: Hypertension type: essential hypertension Qualified Code(s): I10 - Essential (primary) hypertension Comment: Continue Amlodipine. HCTZ held (SiADH) and Lisinopril. (5) Acute encephalopathy Code(s): G93.40 - ENCEPHALOPATHY, UNSPECIFIED Status: Resolved Comment: 2/2 hyponatremia - Plan cont current plan of care, PT/OT, perinatal social worker CM working on placement. PT recommends jail. * .
[2017-11-05 08:17] VITALS: BP 132/78; TEMP 98.2
[2017-11-05] MEDS: Benztropine 1 MG TAB PO SCH (09:57)
[2017-11-05] MEDS: Amlodipine 5 MG TAB PO SCH (09:58)
[2017-11-05] MEDS: Ziprasidone 20 MG CAP PO SCH (09:58)
[2017-11-05] MEDS: carBAMazepine 200 MG TAB PO SCH (09:59)
[2017-11-05] MEDS: Carbidopa/Levodopa 10-100 mg Tablet PO SCH (09:59)
[2017-11-05] MEDS: Docusate 100 MG CAP PO SCH (09:59)
[2017-11-05] MEDS: Famotidine/PF 20 mg/2ml Vial SLOW IVP SCH (10:00)
[2017-11-05] MEDS: Enoxaparin Sodium 40 MG/0.4 ML SYRINGE SC SCH (10:02)
[2017-11-05 11:01] LABS: #Monocytes 0.4 thou/uL (0.11-0.59); #Neutrophils 1.8 thou/uL (1.40-6.50); %Basophils 0.7 % (0.0-1.0); %Eosinophils 0.9 % (0.0-10.0); %Lymphocytes 31.3 % (21.0-51.0); %Monocytes 11.5 % (0.0-10.0); %Neutrophils 55.6 % (42.0-75.0); Hemoglobin 12.1 g/dL (14.0-18.0); Mean Corpuscular HGB CONC 32.4 g/dL (32.0-36.0); Mean Corpuscular Hemoglobin 30.9 pg (27.0-31.0); Mean Corpuscular Volume 95.3 fl (80.0-94.0); Mean Platelet Volume 6.5 fL (7.4-10.4); Platelet Count 275 thou/uL (130-400); RBC Distribution Width 12.4 % (11.5-14.5); Red Blood Cell (RBC) Count 3.91 mill/uL (4.70-6.10); White Blood Cell (WBC) Count 3.3 thou/uL (4.8-10.8)
[2017-11-05 11:25] LABS: Anion Gap 11 mmol/L (10-20); BUN (Urea Nitrogen) 10 mg/dL (8.4-25.7); Calc. Creatinine Clearance 78 mL/min (70-130); Calcium 9.5 mg/dL (7.8-10.44); Carbon Dioxide 28 mmol/L (23-31); Chloride 98 mmol/L (98-107); Estimated GFR-MDRD Greater than 90; Glucose 90 mg/dL (80-115); Potassium 4.7 mmol/L (3.5-5.1); Sodium 132 mmol/L (136-145)
--- NOTE | 2017-11-05 19:15 | PRG ---
DATE OF SERVICE: 11/05/2017 SUBJECTIVE: Patient was seen and examined at bedside and overnight events noted. Patient denies any shortness of breath or chest pain or palpitation. No history of nausea or vomiting or diarrhea or f ever or chills or cramps. OBJECTIVE: GENERAL: This is a thin-built male in no apparent distress. VITAL SIGNS: Temperature 98.2, pulse 70, respiratory rate 18, blood pressure 132/78. HEENT: Atraumatic, normocephalic. Oral mucosa is moist. NECK: Supple. CARDIOVASCULAR: S1, S2 heard. Rate and rhythm regular. RESPIRATORY: Clear to auscultation. GASTROINTESTINAL: Abdomen is soft. MUSCULOSKELETAL: No tenderness. No edema. DERMATOLOGIC: No skin rash. NEUROLOGIC: Alert and awake and oriented x3. No focal neurologic deficits. Moving all the extremiti es. PSYCHIATRIC: Mood and affect normal. LABORATORY DATA: Sodium is 132, potassium is 4.7, BUN is 10, creatinine 0.83. ASSESSMENT AND PLAN: 1. Hyponatremia, most likely from medication and polydipsia. 2. SIADH. The patient was advised to limit fluid intake and hold on Celexa. Patient wants his Vivienne xa back. Advised to follow with his Psychiatry. 3. Hypochloremia. 4. Hypertension. 5. Edema controlled. 6. Continue on fluid restriction. Recommend alternatives with Celexa for psychotropic medications. We will follow.
[2017-11-05] MEDS ORDERED: Famotidine 20 MG TAB PO SCH (21:00)
--- NOTE | 2017-11-05 22:16 | DIS ---
DATE OF ADMISSION: 11/01/2017 DATE OF DISCHARGE: 11/05/2017 DISCHARGE DIAGNOSES: Syndrome of inappropriate antidiuretic hormone secretion, parkinsonism, depress ion, mood disorder, hepatitis C. HISTORY OF PRESENT ILLNESS/HOSPITAL COURSE: A 66-year-old male with history of PTSD, Parkinson's who presented to the emergency room with altered mental status. At the time of admission, he was orient ed to himself only and thinks he is in nursing home. Unable to recall month, date, or year. Unable to provi de much of the history other than that he is allergic to TETRACYCLINE. According to ER records, he w as sent in from his residential [facility] for having altered mental status, approximately 1:00 p.m . on the day of admission. Per ER, his labs revealed sodium of 110, potassium 4.2, BUN of 12, creati nine of 0.79. Serum osmolality was low. He was then admitted for hyponatremia likely secondary to s yndrome of inappropriate antidiuretic hormone secretion. Nephrology consult was also obtained. He w as monitored in IMCU and recommendation was to be for him to be placed on fluid restriction. He resp onded to treatment and by discharge, his sodium was 132. Patient was alert and well oriented and was stable for discharge to his [facility]. DISCHARGE MEDICATIONS: Omeprazole 40 mg daily, amlodipine 5 mg daily, MiraLax 17 grams orally as nee ded for constipation, hydrocortisone 1% cream to be applied topically 3 times a day as needed for skylar h/itching, hydrochlorothiazide 25 mg daily, docusate 100 mg twice a day, carbamazepine 200 mg twice a day, benztropine mesylate 0.5 mg orally twice a day, guaifenesin 10 mL orally every 6 hours as neede d for cough, ziprasidone HCL 40 mg oral twice a day, lisinopril 20 mg twice daily, lactulose 20 mg da alexx as needed for constipation, ibuprofen 2 tabs orally as needed for pain, carbidopa/levodopa 10-100 tab 1 orally 3 times daily. DISCONTINUED MEDICATION: Celexa (Celexa discontinued as it was thought to be contributed to his hypo natremia.) PHYSICAL EXAMINATION: He was examined on the day of discharge. VITAL SIGNS: Temperature 98.2 degrees Fahrenheit, pulse 78, respiratory rate 20, oxygen saturation 9 7% on room air, blood pressure 132/78. GENERAL: Not in acute distress, sitting comfortably in bed. HEENT: PERRLA. Moist mucous membranes. Sclerae are anicteric. NECK: Supple, with full range of movement. RESPIRATORY: No wheezing, rales, or rhonchi. LUNGS: Clear to auscultation bilaterally. CARDIOVASCULAR: Regular rate and rhythm. No significant murmurs, rubs, or gallops. GASTROINTESTINAL: Soft, nontender, nondistended, positive bowel sounds. MUSCULOSKELETAL: No edema or pulses present. NEUROLOGICAL: Nonfocal. Moves all limbs. Alert and oriented x3. PSYCHIATRIC: Normal mood and affect. SKIN: No rashes, lesions. Warm, dry, well perfused. LABORATORY DATA: Sodium 132, potassium 4.7, chloride 98, carbon dioxide 28, anion gap 11, BUN 10, cr eatinine 0.83. WBC 3.3, hemoglobin 12.1, and platelet 275. IMAGING: Chest x-ray, chronic obstructive pulmonary disease. Brain CT without contrast, no acute in tracranial hemorrhage, mild enlargement of the ventricular system slightly out of proportion of front al sinus of the cerebral sulci. Recommend clinical correlation to exclude normal pressure hydrocepha mulugeta, periventricular white matter, hypoattenuation, which could be the basis of ischemic disease vers us sequelae from transependymal CSF migration. Bilateral maxillary sinus fluid levels correlate for evidence of acute sinusitis. CONSULT: Nephrology, Pulmonology. PROCEDURES: None. DIET: Heart healthy. CARE GOALS: To followup with his primary care physician within 1 week of discharge for repeat labs. ACTIVITY: Resume as tolerated and directed by PT/OT. Discharge time 65 minutes including chart review and documentation.
--- NOTE | 2017-11-08 17:25 | EKG ---
Test Reason : Blood Pressure : / mmHG Vent. Rate : 087 BPM Atrial Rate : 088 BPM P-R Int : 000 ms QRS Dur : 068 ms QT Int : 360 ms P-R-T Axes : 000 064 079 degrees QTc Int : 433 ms Sinus rhythm Normal ECG Artifact Confirmed by SHAYY TEJADA D.O. ([id number]), online content editor TAMIKO PRATER ([id number]) on 11/08/2017 5:24:51 PM Referred By: Confirmed By:SHAYY TEJADA D.O.
== END 2017-11-05 14:00 | DRG 643 ==
LOC: ERS 16:37 → IMCU/EMU 18:00 → T4-A 11-03 12:30
PROVIDERS: ADMIT Internal Medicine; ATTEND Internal Medicine
DX: E22.2 Syndrome of inappropriate secretion of antidiuretic hormone (principal); G93.40 Encephalopathy, unspecified; G20 Parkinson's disease; B18.2 Chronic viral hepatitis C; I10 Essential (primary) hypertension; R63.1 Polydipsia; T43.225A Adverse effect of selective serotonin reuptake inhibitors, initial encounter; F32.9 Major depressive disorder, single episode, unspecified
CPT/HCPCS: 36415; 36416; 70450; 71045; 80048; 80053; 81003; 82140; 82553; 83930; 83935; 84300; 84484; 84550; 85025; 90471; 90670; 90682; 93005; 96360; 96361; A4216; G0008; G0009; G8978-GP-CM; G8979-GP-CK; G8987-GO-CL; G8988-GO-CJ; J1650; Q2036; S0028

== ENCOUNTER 2018-03-01 09:09 | Inpatient (IN) | payer MEDICARE, MEDICAID ==
[2018-03-01 10:10] LABS: #Lymphocytes 1.2 thou/uL (1.20-3.40); #Monocytes 0.5 thou/uL (0.11-0.59); #Neutrophils 2.7 thou/uL (1.40-6.50); %Basophils 0.4 % (0.0-1.0); %Eosinophils 0.8 % (0.0-10.0); %Monocytes 10.4 % (0.0-10.0); %Neutrophils 61.4 % (42.0-75.0); Hemoglobin 12.7 g/dL (14.0-18.0); Mean Corpuscular Hemoglobin 29.9 pg (27.0-31.0); Mean Platelet Volume 6.5 fL (7.4-10.4); Platelet Count 202 thou/uL (130-400); RBC Distribution Width 14.6 % (11.5-14.5); Red Blood Cell (RBC) Count 4.26 mill/uL (4.70-6.10); White Blood Cell (WBC) Count 4.3 thou/uL (4.8-10.8)
[2018-03-01 10:18] LABS: Bilirubin Moderate (Negative); Blood, Urine Negative (Negative); Clarity TURBID (Clear); Glucose, Urine (Dipstick) Negative (Negative); Leukocyte Negative (Negative); Nitrite Negative (Negative); Protein, Urine (Dipstick) Negative (Neg-Trace); Specific Gravity, Urine 1.013 (1.002-1.036); Urobilinogen 0.2 mg/dL (0.2-1.0)
[2018-03-01 11:45] LABS: ALT (SGPT) Less than 7 U/L (8-55); AST (SGOT) 13 U/L (5-34); Albumin 4.8 g/dL (3.4-4.8); Alkaline Phosphatase 73 U/L (40-150); Anion Gap 14 mmol/L (10-20); BUN (Urea Nitrogen) 8 mg/dL (8.4-25.7); Bilirubin, Total 0.9 mg/dL (0.2-1.2); Calc. Creatinine Clearance 0 mL/min (70-130); Calcium 9.9 mg/dL (7.8-10.44); Carbon Dioxide 25 mmol/L (23-31); Chloride 85 mmol/L (98-107); Estimated GFR-MDRD Greater than 90; Globulin 2.9 g/dL (2.4-3.5); Glucose 115 mg/dL (80-115); Magnesium 1.7 mg/dL (1.6-2.6); Potassium 3.9 mmol/L (3.5-5.1); Protein, Total 7.7 g/dL (5.8-8.1); Sodium 120 mmol/L (136-145)
[2018-03-01] MEDS ORDERED: Sodium Chloride 0.9% 1,000 ML IV SCH (14:00)
--- NOTE | 2018-03-01 14:43 | PDOC.EVN ---
Event Note - Event Note Event Note: 13:50-14:24 hrs. Discussed with patient re: advance care plan. Discusserd re: code status. Discussed comorbidities as well as projected trajectory for comorbidities. Patient wishes to be full code. He does not have an MPOA but reports that he has sisters who would get together to make decisions for him if he were to be incapacitated.
--- NOTE | 2018-03-01 15:01 | HP ---
PRIMARY CARE PROVIDER: Dedra Patel M.D. CHIEF COMPLAINT: Muscle cramps. HISTORY OF PRESENT ILLNESS: Mr. Cantu is a pleasant 19-year-old gentleman who was seen at [facility] on 03/01/2018. He is a resident at [facility]. He is able to provi de most of the history. Collateral history was also obtained from review of medical records as well as discussion with the emergency room physician. The patient was reported to have altered mental status at the residential. At this time, he is orie nted x3. He reports that he had muscle cramps over the last 2 days in the lower extremities. He den ies any fevers or chills. He denies any nausea or vomiting. He reports that he is eating and drinki ng well. He denies any abdominal pain. He denies any diarrhea. He reports generalized weakness. REVIEW OF SYSTEMS: All other systems reviewed and found to be negative. PAST MEDICAL HISTORY: PTSD, depression, parkinsonism, mood disorder, constipation, hepatitis C, hypo -osmolality, and hyponatremia. PAST SURGICAL HISTORY: None. FAMILY HISTORY: The patient denies any family history of premature coronary artery disease. SOCIAL HISTORY: The patient denies tobacco use, alcohol use or recreational drug use. CODE STATUS: I had a lengthy discussion with Mr. Cantu regarding his code status. He is FULL CODE. ALLERGIES: TETRACYCLINE. CURRENT MEDICATIONS: Benztropine 0.5 mg daily, carbamazepine 200 mg daily, carbidopa/levodopa 10/100 mg 3 times a day, Colace 100 mg daily, hydrochlorothiazide 25 mg daily, lactulose 20 grams daily, No rvasc 5 mg daily, Prilosec 40 mg daily, Cymbalta 60 mg daily, trazodone 100 mg at bedtime, and lisino pril 20 mg 2 times a day. PHYSICAL EXAMINATION: GENERAL: Mr. Cantu is awake and alert, not in acute distress. VITAL SIGNS: Blood pressure is 160/91, pulse is 71, his breathing at rate of 16, and saturating 95% on room air. He is afebrile. EYES: No scleral icterus. No conjunctival pallor. ENT: Moist mucosal membranes. No oropharyngeal erythema or exudates. NECK: Supple, nontender, trachea is midline. RESPIRATORY: Accessory muscles of breathing are not active. Chest wall movements are symmetric bila terally. LUNGS: Clear to auscultation without wheeze, rhonchi or crepitations. CARDIOVASCULAR: S1 and S2 are heard, regular. Peripheral pulses palpable. No carotid bruit, no per icardial rub. ABDOMEN: Soft, nontender, bowel sounds heard, no hepatomegaly, no splenomegaly. NEUROLOGIC: Cranial nerves II-XII intact. Deep tendon reflexes are 2+. He has parkinsonian tremor. MUSCULOSKELETAL: Power is 5/5 in all 4 extremities. LYMPHATIC: No cervical lymphadenopathy. SKIN: Multiple tattoos present. PSYCHIATRIC: Normal mood, normal affect, patient is oriented to person, place, and time. LABORATORY DATA: Mr. Cantu's labs and investigations were reviewed. He has leukopenia with 4300 white cells, normocytic anemia with hemoglobin 12.7, normal platelet count, hyponatremia with sodium of 12 0, normal potassium, normal creatinine, unremarkable liver profile and urinalysis that is positive fo r trace ketones and moderate amount of bilirubin. ASSESSMENT AND PLAN: Mr. Cantu is a pleasant 67-year-old gentleman who was seen at [facility] on 03/01/2018. His problem list includes: 1. Hyponatremia: Mr. Cantu is presenting with symptomatic hyponatremia, sodium 120. He will be admit ebony to the hospital and started on fluid restriction as well as intravenous normal saline. Nephrolog y Service is being consulted for opinion and help with management. We will check serum and urine osm olality as well as urine electrolytes. 2. Parkinson's disease. Stable, continue home medications. 3. Hypertension: Continue home medications, hold hydrochlorothiazide because of hyponatremia. 4. Posttraumatic stress disorder. Continue home medications. Many thanks for allowing me to participate in your patient's care. Please feel free to contact me wi th any questions or concerns. LEVEL OF RISK: Moderate. LEVEL OF COMPLEXITY: Moderate.
[2018-03-01] MEDS ORDERED: Prevnar 13-Val Conj/PF 0.5 ML SYRINGE IM ONE (16:00)
[2018-03-01 16:20] LABS: Potassium, Urine 40.5 mmol/L
[2018-03-01] MEDS ORDERED: Polyethylene Glycol 3350 17 GM Packet PO PRN (20:13)
--- NOTE | 2018-03-01 20:16 | PDOC.EVN ---
Event Note - Event Note Event Note: Called by RN as none of the patient's home meds have been started - to include psychiatric medications and parkinsons medications. Reconciled meds and all started except ibuprofen, the sodium chloride tabs as he is on IVF, and hydrochlorothiazide. These will need to be addressed tomorrow by the daytime Hospitalist.
[2018-03-01] MEDS: traZODone HCl 50 MG TAB PO SCH (20:47)
[2018-03-01] MEDS: Lisinopril 20 MG TAB PO SCH (20:48)
[2018-03-01] MEDS: Benztropine 1 MG TAB PO SCH (20:48)
[2018-03-01] MEDS: Docusate 100 MG CAP PO SCH (20:48)
[2018-03-01] MEDS: Acetaminophen 325 MG TAB PO PRN (20:48)
[2018-03-01] MEDS: carBAMazepine 200 MG TAB PO SCH (20:48)
[2018-03-01 21:09] LABS: Anion Gap 13 mmol/L (10-20); BUN (Urea Nitrogen) 9 mg/dL (8.4-25.7); Calc. Creatinine Clearance 91 mL/min (70-130); Calcium 9.5 mg/dL (7.8-10.44); Carbon Dioxide 24 mmol/L (23-31); Chloride 87 mmol/L (98-107); Estimated GFR-MDRD Greater than 90; Glucose 143 mg/dL (80-115); Potassium 3.6 mmol/L (3.5-5.1); Sodium 120 mmol/L (136-145)
[2018-03-01] MEDS: Carbidopa/Levodopa 10-100 mg Tablet PO SCH (21:18)
[2018-03-01] MEDS: Sodium Chloride 0.9% 1,000 ML IV SCH (23:33)
[2018-03-02 04:43] LABS: #Eosinphils 0.1 thou/uL (0.0-0.7); #Lymphocytes 1.3 thou/uL (1.20-3.40); #Monocytes 0.6 thou/uL (0.11-0.59); #Neutrophils 2.6 thou/uL (1.40-6.50); %Basophils 0.5 % (0.0-1.0); %Eosinophils 2.3 % (0.0-10.0); %Lymphocytes 28.5 % (21.0-51.0); %Monocytes 12.8 % (0.0-10.0); %Neutrophils 55.9 % (42.0-75.0); Hemoglobin 12.2 g/dL (14.0-18.0); Mean Corpuscular HGB CONC 34.6 g/dL (32.0-36.0); Mean Corpuscular Hemoglobin 30.2 pg (27.0-31.0); Mean Corpuscular Volume 87.1 fl (80.0-94.0); Mean Platelet Volume 6.9 fL (7.4-10.4); Platelet Count 179 thou/uL (130-400); RBC Distribution Width 14.8 % (11.5-14.5); Red Blood Cell (RBC) Count 4.06 mill/uL (4.70-6.10); White Blood Cell (WBC) Count 4.6 thou/uL (4.8-10.8)
--- NOTE | 2018-03-02 05:12 | CON ---
DATE OF CONSULTATION: 03/01/2018 CONSULTING PHYSICIAN: Dr. Gallagher. REASON FOR CONSULT: Hyponatremia. REASON FOR ADMISSION: Muscle cramps. HISTORY OF PRESENT ILLNESS: This is a 67-year-old white male with history of PTSD, depression, Parki nson's disease, hyponatremia came to the hospital with cramps and was found to have sodium 120. Neph rology is consulted. Patient did have history of hyponatremia, was admitted in 10/2017 and was thoug ht to be secondary to polydipsia and medications. Currently listed medications not available. Patie nt denies drinking a lot of water. No fever or chills. No nausea, vomiting, diarrhea. Patient said he has been having poor p.o. intake in the last few days. PAST MEDICAL HISTORY: Positive for PTSD, depression, Parkinson's, constipation, hyponatremia. PAST SURGICAL HISTORY: None. HOME MEDICATIONS: Benztropine, carbamazepine, carbidopa/levodopa, Colace, hydrochlorothiazide, lactu lose, Norvasc, Prilosec, Cymbalta, trazodone, lisinopril. ALLERGIES: TETRACYCLINE. SOCIAL HISTORY: No smoking, alcohol, or illicit drug abuse. FAMILY HISTORY: No history of any kidney disease. REVIEW OF SYSTEMS: The following complete review of systems was negative, unless otherwise mentioned in the HPI or below: Constitutional: Weight loss or gain, ability to conduct usual activities. Sk in: Rash, itching. Eyes: Double vision, pain. ENT/Mouth: Nose bleeding, neck stiffness, pain, te nderness. Cardiovascular: Palpitations, dyspnea on exertion, orthopnea. Respiratory: Shortness of breath, wheezing, cough, hemoptysis, fever, or night sweats. Gastrointestinal: Poor appetite, abdo farshad pain, heartburn, nausea, vomiting, constipation, or diarrhea. Genitourinary: Urgency, frequen cy, dysuria, nocturia. Musculoskeletal: Pain, swelling. Neurologic/Psychiatric: Anxiety, depressi on. Allergy/Immunologic: Skin rash, bleeding tendency. PHYSICAL EXAMINATION: GENERAL: This is a thin well-built male in no apparent distress. VITAL SIGNS: Temperature 97.7, pulse 77, respiratory rate 18, blood pressure 117/81. LABORATORY DATA AND X-RAY FINDINGS: Sodium 120, potassium is 3.6, BUN is 9, creatinine is 0.7. Urin e sodium 146, potassium is 40.5. Osmolality is 454. ASSESSMENT AND PLAN: 1. Hyponatremia most likely from polydipsia and medications recommend to hold as tolerated at this p oint. Patient reports poor p.o. intake for last few days. We will try IV fluids to see if any corre ctions as possible with IV fluids. 2. Agree with holding hydrochlorothiazide. 3. Hypochloremia. 4. Edema, controlled. 5. Hypertension, stable. Plan is to hold medications and limit free-water intake and we will follow. Monitor sodium closely. No indication for hypertonic saline.
[2018-03-02 05:34] LABS: Anion Gap 13 mmol/L (10-20); BUN (Urea Nitrogen) 7 mg/dL (8.4-25.7); Calc. Creatinine Clearance 91 mL/min (70-130); Calcium 9.6 mg/dL (7.8-10.44); Carbon Dioxide 25 mmol/L (23-31); Chloride 89 mmol/L (98-107); Estimated GFR-MDRD Greater than 90; Glucose 99 mg/dL (80-115); Potassium 3.6 mmol/L (3.5-5.1); Sodium 123 mmol/L (136-145)
[2018-03-02] MEDS: Sodium Chloride 0.9% 1,000 ML IV SCH (05:53)
[2018-03-02] MEDS: Acetaminophen 325 MG TAB PO PRN ×3 (05:53→20:58)
[2018-03-02] MEDS: Lisinopril 20 MG TAB PO SCH ×2 (08:10→20:13)
[2018-03-02] MEDS: Amlodipine 5 MG TAB PO SCH (08:13)
[2018-03-02] MEDS: carBAMazepine 200 MG TAB PO SCH ×2 (08:13→20:15)
[2018-03-02] MEDS: Carbidopa/Levodopa 10-100 mg Tablet PO SCH ×3 (08:14→20:11)
[2018-03-02] MEDS: Benztropine 1 MG TAB PO SCH ×2 (08:14→20:12)
[2018-03-02] MEDS: Enoxaparin Sodium 40 MG/0.4 ML SYRINGE SC SCH (08:15)
[2018-03-02] MEDS: Docusate 100 MG CAP PO SCH ×2 (08:15→20:11)
[2018-03-02 09:13] VITALS: BMI 21.6
[2018-03-02] MEDS ORDERED: ALPRAZolam 0.25 MG TAB PO SCH (13:45)
[2018-03-02] MEDS: Bisacodyl 5 MG TAB PO PRN ×2 (15:36→20:13)
--- NOTE | 2018-03-02 17:19 | PDOC.PN ---
- Subjective Encounter Start Date: 03/02/18 Encounter Start Time: 09:20 Pt seen for followup re: hyponatremia. Denies chest pain or shortness of breath. No fevers or chills. - Objective Resuscitation Status: Resuscitation Status FULL:Full Resuscitation MAR Reviewed: Yes Vital Signs & Weight: Vital Signs (12 hours) Temp Pulse Resp BP BP Pulse Ox 03/02/18 15:43 97.8 F 69 18 148/94 H 97 03/02/18 13:11 97.8 F 75 18 144/74 H 96 03/02/18 08:13 68 150/84 H 03/02/18 08:10 150/84 H 03/02/18 08:00 97.6 F 68 18 150/84 H 96 03/02/18 05:46 97.4 F L 65 18 128/76 95 Weight Admit Weight 153 lb 3.2 oz Weight 150 lb 11.2 oz I&O: 03/01/18 03/02/18 03/03/18 06:59 06:59 06:59 Intake Total 1585 Output Total 1525 Balance 60 Result Diagrams: 03/02/18 03:58 03/02/18 03:58 Additional Labs: Labs reviewed by me Phys Exam - Physical Examination Constitutional: NAD HEENT: moist MMs, sclera anicteric, oral pharynx no lesions, 2+ tonsils Neck: no nodes, no JVD, supple, full ROM Respiratory: no wheezing, no rales, no rhonchi, clear to auscultation bilateral Cardiovascular: RRR, no rub S1, S2 Gastrointestinal: soft, non-tender, no distention, positive bowel sounds Musculoskeletal: pulses present Neurological: moves all 4 limbs Psychiatric: normal affect, A&O x 3 Deviation from normal: multiple tattoos Dx/Plan (1) Hyponatremia Code(s): E87.1 - HYPO-OSMOLALITY AND HYPONATREMIA Status: Acute Comment: Improving, hold thiazide, continue fluid restriction and IV NS (2) HTN (hypertension) Code(s): I10 - ESSENTIAL (PRIMARY) HYPERTENSION Status: Acute Qualifiers: Hypertension type: essential hypertension Qualified Code(s): I10 - Essential (primary) hypertension Comment: Hold HCTZ, monitor vital signs and titrate antihypertensives as needed (3) Chronic hepatitis Code(s): K73.9 - CHRONIC HEPATITIS, UNSPECIFIED Status: Chronic Comment: stable (4) Parkinson disease Code(s): G20 - PARKINSON'S DISEASE Status: Chronic Comment: stable, continue home medications. - Plan * . Review of Systems - Review of Systems Constitutional: negative: fever, chills, sweats, weakness, malaise Respiratory: negative: Cough, Shortness of Breath, SOB with Excertion, Sputum, Wheezing Cardiovascular: negative: chest pain, palpitations, orthopnea, paroxysmal nocturnal dyspnea, edema, light headedness Gastrointestinal: negative: Nausea, Vomiting, Abdominal Pain, Diarrhea, Constipation, Melena, Hematochezia Genitourinary: negative: Dysuria, Frequency, Incontinence, Hematuria, Retention Skin: negative: Rash, Lesions, Rene, Bruising - Medications/Allergies Allergies/Adverse Reactions: Allergies Allergy/AdvReac Type Severity Reaction Status Date / Time Tetracyclines Allergy Verified 11/01/17 19:55 Medications: Current Medications Acetaminophen (Tylenol) 650 mg PO Q4H PRN PRN Reason: Headache/Fever or Pain Last Admin: 03/02/18 15:31 Dose: 650 mg Amlodipine Besylate (Norvasc) 5 mg PO DAILY [facility] Last Admin: 03/02/18 08:13 Dose: 5 mg Benztropine Mesylate (Cogentin) 0.5 mg PO BID [facility] Last Admin: 03/02/18 08:14 Dose: 0.5 mg Bisacodyl (Dulcolax) 10 mg PO DAILYPRN PRN PRN Reason: Constipation Last Admin: 03/02/18 15:36 Dose: 10 mg Carbamazepine (Tegretol) 200 mg PO BID [facility] Last Admin: 03/02/18 08:13 Dose: 200 mg Carbidopa/Levodopa (Sinemet 10/100) 1 tab PO TID [facility] Last Admin: 03/02/18 15:30 Dose: 1 tab Divalproex Sodium (Depakote Er) 250 mg PO BID [facility] Last Admin: 03/02/18 09:09 Dose: 250 mg Docusate Sodium (Colace) 100 mg PO BID [facility] Last Admin: 03/02/18 08:15 Dose: 100 mg Enoxaparin Sodium (Lovenox) 40 mg SC 0900 [facility] Last Admin: 03/02/18 08:15 Dose: 40 mg Lactulose (Lactulose) 20 gm PO DAILY PRN PRN Reason: Constipation Lisinopril (Zestril) 20 mg PO BID [facility] Last Admin: 03/02/18 08:10 Dose: 20 mg Pantoprazole Sodium (Protonix) 40 mg PO DAILY [facility] Last Admin: 03/02/18 08:13 Dose: 40 mg Polyethylene Glycol (Miralax) 17 gm PO DAILY PRN PRN Reason: Constipation Sodium Chloride (Flush - Normal Saline) 10 ml IVF PRN PRN PRN Reason: Saline Flush Trazodone HCl (Desyrel) 100 mg PO [facility] Last Admin: 03/01/18 20:47 Dose: 100 mg
[2018-03-02] MEDS: traZODone HCl 50 MG TAB PO SCH (20:15)
[2018-03-02] MEDS ORDERED: Lorazepam 0.5 MG TAB PO SCH (20:15)
--- NOTE | 2018-03-02 21:46 | PRG ---
DATE OF SERVICE: 03/02/2018 SUBJECTIVE: Patient was seen and examined at bedside and overnight events noted. Patient denies any shortness of breath or chest pain or palpitation. No history of nausea or vomiting or diarrhea or f ever or chills or cramps. OBJECTIVE: General: This is a thin-build white male in no apparent distress Vital Signs: Temperature 97.8, pulse 69, respiratory rate 18, blood pressure 148/94. HEENT: Atraumatic, normocephalic, Oral mucosa is moist. Neck: Supple. Cardiovascular: S1 and S2 heard. Rate and rhythm regular. Respiratory: Clear to auscultation. Gastrointestinal: Abdomen is soft. Musculoskeletal: No tenderness, No edema. Dermatologic: No skin rash. Neurologic: Alert and awake and oriented x3. No focal neurologic deficits. Moving all the extremit ies. Psychiatric: Mood and affect normal. LABORATORY DATA: Sodium is 123, BUN 7, creatinine 0.7. ASSESSMENT AND PLAN: 1. Hyponatremia. Urine studies suggest polydipsia/SIADH. Continue on fluid restriction. Monitor. Hold on psychotropic medications if possible. 2. Hypochloremia. 3. Edema, controlled. 4. Hypertension stable. We will stop IV fluids. Plan is to continue on fluid restriction and monit or sodium, check sodium in the morning.
[2018-03-03 04:26] LABS: #Eosinphils 0.1 thou/uL (0.0-0.7); #Lymphocytes 1.3 thou/uL (1.20-3.40); #Monocytes 0.5 thou/uL (0.11-0.59); #Neutrophils 1.6 thou/uL (1.40-6.50); %Basophils 0.6 % (0.0-1.0); %Eosinophils 2.6 % (0.0-10.0); %Lymphocytes 37.9 % (21.0-51.0); %Monocytes 14.7 % (0.0-10.0); %Neutrophils 44.3 % (42.0-75.0); Hemoglobin 12.5 g/dL (14.0-18.0); Mean Corpuscular HGB CONC 34.1 g/dL (32.0-36.0); Mean Platelet Volume 6.8 fL (7.4-10.4); Platelet Count 183 thou/uL (130-400); RBC Distribution Width 14.7 % (11.5-14.5); Red Blood Cell (RBC) Count 4.18 mill/uL (4.70-6.10); White Blood Cell (WBC) Count 3.5 thou/uL (4.8-10.8)
[2018-03-03 04:47] LABS: Anion Gap 11 mmol/L (10-20); BUN (Urea Nitrogen) 10 mg/dL (8.4-25.7); Calc. Creatinine Clearance 81 mL/min (70-130); Calcium 9.6 mg/dL (7.8-10.44); Carbon Dioxide 27 mmol/L (23-31); Chloride 90 mmol/L (98-107); Estimated GFR-MDRD Greater than 90; Glucose 100 mg/dL (80-115); Potassium 3.8 mmol/L (3.5-5.1); Sodium 124 mmol/L (136-145)
[2018-03-03] MEDS ORDERED: ALPRAZolam 0.25 MG TAB PO PRN (10:08)
[2018-03-03] MEDS: Lisinopril 20 MG TAB PO SCH ×2 (10:23→21:15)
[2018-03-03] MEDS: Sodium Chloride 1 GM TAB PO SCH ×3 (10:23→21:16)
[2018-03-03] MEDS: Docusate 100 MG CAP PO SCH ×2 (10:24→21:14)
[2018-03-03] MEDS: Carbidopa/Levodopa 10-100 mg Tablet PO SCH ×3 (10:24→21:13)
[2018-03-03] MEDS: DULoxetine 60 MG CAP PO SCH (10:24)
[2018-03-03] MEDS: Benztropine 1 MG TAB PO SCH ×2 (10:24→21:13)
[2018-03-03] MEDS: Amlodipine 5 MG TAB PO SCH (10:25)
[2018-03-03] MEDS: carBAMazepine 200 MG TAB PO SCH ×2 (10:25→21:14)
[2018-03-03] MEDS: Enoxaparin Sodium 40 MG/0.4 ML SYRINGE SC SCH (10:26)
--- NOTE | 2018-03-03 15:54 | PDOC.PN ---
- Subjective Encounter Start Date: 03/03/18 - Objective Resuscitation Status: Resuscitation Status FULL:Full Resuscitation MAR Reviewed: Yes Vital Signs & Weight: Vital Signs (12 hours) Temp Pulse Resp BP BP Pulse Ox 03/03/18 12:00 98.3 F 73 16 146/86 H 97 03/03/18 10:25 71 135/75 03/03/18 10:23 135/75 03/03/18 07:46 97.7 F 71 16 135/75 96 03/03/18 05:04 96 03/03/18 04:00 97.8 F 64 20 130/81 Weight Admit Weight 153 lb 3.2 oz Weight 151 lb 3 oz I&O: 03/02/18 03/03/18 03/04/18 06:59 06:59 06:59 Intake Total 1585 1200 Output Total 1525 1375 Balance 60 -175 Result Diagrams: 03/03/18 03:57 03/03/18 03:57 Additional Labs: Labs reviewed by me Phys Exam - Physical Examination Constitutional: NAD HEENT: moist MMs, sclera anicteric, oral pharynx no lesions, 2+ tonsils Neck: no nodes, no JVD, supple, full ROM Respiratory: no wheezing, no rales, no rhonchi, clear to auscultation bilateral Cardiovascular: RRR, no rub S1, S2 Gastrointestinal: soft, non-tender, no distention, positive bowel sounds Musculoskeletal: no edema, pulses present Neurological: moves all 4 limbs Psychiatric: normal affect, A&O x 3 Deviation from normal: Multiple tattoos Dx/Plan (1) Hyponatremia Code(s): E87.1 - HYPO-OSMOLALITY AND HYPONATREMIA Status: Acute Comment: Improving, continue to hold thiazide, continue fluid restriction and IV NS, resume salt tablets (2) HTN (hypertension) Code(s): I10 - ESSENTIAL (PRIMARY) HYPERTENSION Status: Acute Qualifiers: Hypertension type: essential hypertension Qualified Code(s): I10 - Essential (primary) hypertension Comment: monitor vital signs and titrate antihypertensives as needed (3) Chronic hepatitis Code(s): K73.9 - CHRONIC HEPATITIS, UNSPECIFIED Status: Chronic Comment: stable (4) Parkinson disease Code(s): G20 - PARKINSON'S DISEASE Status: Chronic Comment: stable - Plan * . Review of Systems - Review of Systems Constitutional: negative: fever, chills, sweats, weakness, malaise Respiratory: negative: Cough, Shortness of Breath, Hemoptysis, SOB with Excertion, Pleuritic Pain, Wheezing Gastrointestinal: negative: Nausea, Vomiting, Abdominal Pain, Diarrhea, Constipation, Melena, Hematochezia Genitourinary: negative: Dysuria, Frequency, Incontinence, Hematuria, Retention Skin: negative: Rash, Lesions, Rene, Bruising - Medications/Allergies Allergies/Adverse Reactions: Allergies Allergy/AdvReac Type Severity Reaction Status Date / Time Tetracyclines Allergy Verified 11/01/17 19:55 Medications: Current Medications Acetaminophen (Tylenol) 650 mg PO Q4H PRN PRN Reason: Headache/Fever or Pain Last Admin: 03/02/18 20:58 Dose: 650 mg Alprazolam (Xanax) 0.25 mg PO DAILYPRN PRN PRN Reason: Anxiety Last Admin: 03/03/18 10:26 Dose: 0.25 mg Amlodipine Besylate (Norvasc) 5 mg PO DAILY [facility] Last Admin: 03/03/18 10:25 Dose: 5 mg Benztropine Mesylate (Cogentin) 0.5 mg PO BID [facility] Last Admin: 03/03/18 10:24 Dose: 0.5 mg Bisacodyl (Dulcolax) 10 mg PO DAILYPRN PRN PRN Reason: Constipation Last Admin: 03/02/18 20:13 Dose: 10 mg Carbamazepine (Tegretol) 200 mg PO BID [facility] Last Admin: 03/03/18 10:25 Dose: 200 mg Carbidopa/Levodopa (Sinemet 10/100) 1 tab PO TID [facility] Last Admin: 03/03/18 10:24 Dose: 1 tab Divalproex Sodium (Depakote Er) 250 mg PO BID [facility] Last Admin: 03/03/18 10:26 Dose: 250 mg Docusate Sodium (Colace) 100 mg PO BID [facility] Last Admin: 03/03/18 10:24 Dose: 100 mg Duloxetine HCl (Cymbalta) 60 mg PO DAILY [facility] Last Admin: 03/03/18 10:24 Dose: 60 mg Enoxaparin Sodium (Lovenox) 40 mg SC 0900 [facility] Last Admin: 03/03/18 10:26 Dose: 40 mg Lactulose (Lactulose) 20 gm PO DAILY PRN PRN Reason: Constipation Lisinopril (Zestril) 20 mg PO BID [facility] Last Admin: 03/03/18 10:23 Dose: 20 mg Pantoprazole Sodium (Protonix) 40 mg PO DAILY [facility] Last Admin: 03/03/18 10:26 Dose: 40 mg Polyethylene Glycol (Miralax) 17 gm PO DAILY PRN PRN Reason: Constipation Sodium Chloride (Flush - Normal Saline) 10 ml IVF PRN PRN PRN Reason: Saline Flush Sodium Chloride (Sodium Chloride) 1 gm PO TID [facility] Last Admin: 03/03/18 10:23 Dose: 1 gm Trazodone HCl (Desyrel) 100 mg PO HS [facility] Last Admin: 03/02/18 20:15 Dose: 100 mg
--- NOTE | 2018-03-03 19:25 | PRG ---
DATE OF SERVICE: 03/03/2018 SUBJECTIVE: Patient was seen and examined at bedside and overnight events noted. Patient denies any shortness of breath or chest pain or palpitation. No history of nausea or vomiting or diarrhea or f ever or chills or cramps. OBJECTIVE: GENERAL: This is a well-built male, in no apparent distress. VITAL SIGNS: Temperature 98.0, pulse 62, respiratory rate 18, blood pressure 141/72. HEENT: Atraumatic, normocephalic, oral mucosa is moist. NECK: Supple. CARDIOVASCULAR: S1, S2 heard, rate and rhythm regular. RESPIRATORY: Clear to auscultation. GASTROINTESTINAL: Abdomen is soft. MUSCULOSKELETAL: No tenderness, no edema. DERMATOLOGIC: No skin rash. NEUROLOGIC: Alert and awake and oriented x3. No focal neurologic deficits. Moving all the extremit ies. PSYCHIATRIC: Mood and affect normal. LABORATORY DATA: Sodium is 124, creatinine is 0.8. ASSESSMENT AND PLAN: 1. Hyponatremia secondary to polydipsia. Limit fluid intake. 2. Edema, controlled. 3. Hypertension. 4. Hypochloremia. Plan is to continue on fluid restriction as tolerated and monitor sodium. No indication for hyperton ic saline.
[2018-03-03] MEDS: traZODone HCl 50 MG TAB PO SCH (21:14)
[2018-03-04 04:49] LABS: Anion Gap 10 mmol/L (10-20); BUN (Urea Nitrogen) 12 mg/dL (8.4-25.7); Calc. Creatinine Clearance 85 mL/min (70-130); Calcium 9.5 mg/dL (7.8-10.44); Carbon Dioxide 27 mmol/L (23-31); Chloride 95 mmol/L (98-107); Estimated GFR-MDRD Greater than 90; Glucose 99 mg/dL (80-115); Sodium 128 mmol/L (136-145)
[2018-03-04 04:56] LABS: Eosinophils 4 % (0-10); Hemoglobin 11.3 g/dL (14.0-18.0); Lymphocytes 50 % (21-51); MDiff Complete? YES; Mean Corpuscular HGB CONC 34.4 g/dL (32.0-36.0); Mean Corpuscular Hemoglobin 30.2 pg (27.0-31.0); Mean Corpuscular Volume 87.8 fL (78.0-98.0); Mean Platelet Volume 6.7 fL (7.4-10.4); Monocytes 11 % (0-10); Neutrophil 33 % (42-75); PLT Morphology Comment Appears Adequate; Platelet Count 159 thou/uL (130-400); RBC Distribution Width 14.6 % (11.5-14.5); Red Blood Cell (RBC) Count 3.74 mill/uL (4.70-6.10); White Blood Cell (WBC) Count 3.7 thou/uL (4.8-10.8)
[2018-03-04] MEDS: Sodium Chloride 1 GM TAB PO SCH (09:00)
[2018-03-04] MEDS: Enoxaparin Sodium 40 MG/0.4 ML SYRINGE SC SCH (09:00)
[2018-03-04] MEDS: Amlodipine 5 MG TAB PO SCH (09:01)
[2018-03-04] MEDS: Docusate 100 MG CAP PO SCH (09:01)
[2018-03-04] MEDS: Benztropine 1 MG TAB PO SCH (09:01)
[2018-03-04] MEDS: DULoxetine 60 MG CAP PO SCH (09:01)
[2018-03-04] MEDS: Carbidopa/Levodopa 10-100 mg Tablet PO SCH (09:01)
[2018-03-04] MEDS: Lisinopril 20 MG TAB PO SCH (09:02)
[2018-03-04] MEDS: carBAMazepine 200 MG TAB PO SCH (09:02)
[2018-03-04] MEDS: Acetaminophen 325 MG TAB PO PRN (11:02)
[2018-03-04 11:35] VITALS: BP 147/80; TEMP 97.6
--- NOTE | 2018-03-04 18:01 | PRG ---
DATE OF SERVICE: 03/04/2018 SUBJECTIVE: Patient was seen and examined at bedside and overnight events noted. Patient denies any shortness of breath or chest pain or palpitation. No history of nausea or vomiting or diarrhea or f ever or chills or cramps. OBJECTIVE: GENERAL: This is a well-built male in no apparent distress. VITAL SIGNS: Temperature 97.6, pulse 72, respiratory rate 16, blood pressure 147/80. HEENT: Atraumatic, normocephalic. Oral mucosa is moist. NECK: Supple. CARDIOVASCULAR: S1, S2 heard. Rate and rhythm regular. RESPIRATORY: Clear to auscultation. GASTROINTESTINAL: Abdomen is soft. MUSCULOSKELETAL: No tenderness. No edema. DERMATOLOGIC: No skin rash. NEUROLOGIC: Alert and awake and oriented x3. No focal neurologic deficits. Moving all the extremiti es. PSYCHIATRIC: Mood and affect normal. LABORATORY DATA: Potassium is 4.0, sodium is 128, BUN 12, creatinine 0.8. ASSESSMENT AND PLAN: 1. Hyponatremia secondary to polydipsia and sodium level is stable. 2. Edema, controlled. 3. Hypertension. 4. Hypochloremia. 5. Labs are stable. Follow up in the clinic again in 1-2 weeks.
--- NOTE | 2018-03-04 19:27 | DIS ---
DATE OF ADMISSION: 03/01/2018 DATE OF DISCHARGE: 03/04/2018 PRIMARY CARE PROVIDER: Dedra Patel M.D. ADMISSION DIAGNOSIS: Hyponatremia. CONDITION OF PATIENT ON THE DAY OF DISCHARGE: Stable. I assessed Mr. Cantu on the day of discharge. He denies any chest pain or shortness of breath. PHYSICAL EXAMINATION: VITAL SIGNS: Stable. HEART: S1 and S2 are heard, regular. LUNGS: Clear to auscultation bilaterally. CONSULTATIONS DURING THIS HOSPITALIZATION: Nephrology, Dr. Darius Sher. HOSPITAL COURSE: Mr. Cantu is a pleasant 67-year-old gentleman who was admitted to [facility] on 03/01/2018 for hyponatremia, with a sodium level of 120. He was seen by Nephrology Service. He was started on oral fluid restriction. His hydrochlorothiazide was stopped. The remai nder of his home medications was continued. Sodium improved to 128 on the day of discharge. He is a dvised to stay off of hydrochlorothiazide diuretic. He was also on sodium chloride 1 gram 3 times a day at the time of admission. Nephrology service rec ommends reassessment after another 3 or 4 days of use. It is recommended that he have his Chem-7 checked in a week's time. DISCHARGE MEDICATIONS: As mentioned earlier, discontinue hydrochlorothiazide, continue the rest of h is preadmission medications as dictated on my history and physical note on 03/01/2018. Reassess use of sodium chloride after 3 or 4 days. On the day of discharge, he has sodium 128, potassium 4.0, creatinine 0.8, white count 3700, hemoglob in 11.3, and platelet count 159,000. Many thanks for allowing me to participate in your patient's care. Please feel free to contact me wi th any questions or concerns. DISCHARGE DESTINATION: [facility], from where patient was admitted to the hospital. TOTAL AMOUNT OF TIME SPENT COORDINATING THIS DISCHARGE: 33 minutes.
== END 2018-03-04 14:33 | disposition home or self-care (01) | DRG 641 ==
LOC: ERS 09:09 → T4-B 13:23
PROVIDERS: ADMIT Internal Medicine; ATTEND Internal Medicine
DX: E87.1 Hypo-osmolality and hyponatremia (principal); G20 Parkinson's disease; F43.10 Post-traumatic stress disorder, unspecified; F20.9 Schizophrenia, unspecified; Z88.8 Allergy status to other drugs, medicaments and biological substances; Z79.899 Other long term (current) drug therapy; I10 Essential (primary) hypertension; R60.9 Edema, unspecified; E87.8 Other disorders of electrolyte and fluid balance, not elsewhere classified; R63.1 Polydipsia; K59.00 Constipation, unspecified; F32.9 Major depressive disorder, single episode, unspecified; K73.9 Chronic hepatitis, unspecified
CPT/HCPCS: 36415; 36416; 80048; 80053; 81003; 82436; 82570; 83735; 83930; 83935; 84133; 84300; 85025; 90471; 90670; 99285; G0009; J1650

== ENCOUNTER 2018-03-09 16:32 | Inpatient (IN) | payer MEDICARE, MEDICAID ==
[~2018-03-09 16:32] MED LIST: ISOVUE-370 76%-LOCM 1 ML ONE
[2018-03-09 17:13] LABS: Bilirubin Small (Negative); Blood, Urine Large (Negative); Clarity CLOUDY (Clear); Glucose, Urine (Dipstick) Negative (Negative); Leukocyte Moderate (Negative); Nitrite Positive (Negative); Protein, Urine (Dipstick) 100 mg/dL (Neg-Trace); Specific Gravity, Urine 1.021 (1.002-1.036)
[2018-03-09 17:15] LABS: Bacteria/HPF 4+ HPF (None Seen); Hyaline Casts/LPF 0-3 HYALINE CAST LPF (0-3 Hyaline); RBC/HPF 0-3 HPF (0-3); Squamous Epithelial None Seen HPF (0-3)
[2018-03-09 17:39] LABS: #Lymphocytes 0.4 thou/uL (1.20-3.40); #Neutrophils 8.2 thou/uL (1.40-6.50); %Basophils 0.2 % (0.0-1.0); %Lymphocytes 3.9 % (21.0-51.0); %Monocytes 10.1 % (0.0-10.0); %Neutrophils 85.8 % (42.0-75.0); Hemoglobin 11.6 g/dL (14.0-18.0); Mean Corpuscular HGB CONC 33.8 g/dL (32.0-36.0); Mean Corpuscular Volume 88.8 fL (78.0-98.0); Platelet Count 154 thou/uL (130-400); RBC Distribution Width 14.8 % (11.5-14.5); Red Blood Cell (RBC) Count 3.88 mill/uL (4.70-6.10); White Blood Cell (WBC) Count 9.6 thou/uL (4.8-10.8)
[2018-03-09 18:03] LABS: ALT (SGPT) 15 U/L (8-55); AST (SGOT) 65 U/L (5-34); Albumin 4.1 g/dL (3.4-4.8); Alkaline Phosphatase 62 U/L (40-150); Anion Gap 12 mmol/L (10-20); BUN (Urea Nitrogen) 20 mg/dL (8.4-25.7); Calc. Creatinine Clearance 0 mL/min (70-130); Calcium 9.3 mg/dL (7.8-10.44); Carbon Dioxide 24 mmol/L (23-31); Chloride 99 mmol/L (98-107); Estimated GFR-MDRD 80; Globulin 2.9 g/dL (2.4-3.5); Glucose 165 mg/dL (80-115); Lipase Less than 4 U/L (8-78); Magnesium 1.8 mg/dL (1.6-2.6); Potassium 3.6 mmol/L (3.5-5.1); Sodium 131 mmol/L (136-145)
--- NOTE | 2018-03-09 18:04 | RAD ---
FRONTAL RADIOGRAPH CHEST: 03/09/2018 HISTORY: Altered mental status for four days, progressive worsening, sepsis. COMPARISON: 11/02/2017 FINDINGS: There is no pneumothorax seen. There is no large volume pleural effusion. There is mild increased l inear density in the right lung base, which may signify volume loss or, less likely, mild infiltrate. There is a rounded area of increased density at the level of the diaphragmatic hiatus, suggesting a hiatal hernia. IMPRESSION: Hiatal hernia. Mild linear density in the right base may signify volume loss or infectious pneumonit is. No lobar consolidation or alveolar edema. POS: KEVIN
[2018-03-09 18:06] LABS: Troponin I 0.021 ng/mL (< 0.028)
[2018-03-09 18:13] LABS: CKMB 37.8 ng/mL (0-6.6)
[2018-03-09 18:15] LABS: CK (CPK) 4780 U/L (30-200)
[2018-03-09] MEDS ORDERED: MEROPENEM 1 GM/50 ML 1 GM in Premix Bag 1 BAG IVPB SCH (18:30)
--- NOTE | 2018-03-09 18:37 | CT ---
CT ABDOMEN WITH CONTRAST CT PELVIS WITH CONTRAST: DATE: 03/09/2018 TIME: 5:48 p.m. HISTORY: A 67-year-old male with generalized abdominal pain and sepsis. COMPARISON: None. TECHNIQUE: IV injection of iodinated contrast media: Isovue. Oral contrast media: Not administered. FINDINGS: The patient is unable to cooperate because of altered mental status. The patient's upper extremities are not elevated, resulting in streak artifact, degrading the images. Multiple gallstones. Right r enal cyst. No abscess identified within the abdominal cavity or pelvic cavity. Enlarged prostate wi th heterogeneously low attenuation, suggestive of edema. Herniation of approximately 20% of the stom ach volume into the left hemithorax. No hydronephrosis. Atherosclerotic calcification without aneur ysm of the abdominal aorta. No gross pathology identified involving the adrenals, the pancreas, the liver, or the spleen. No small bowel dilation. Moderate to large amount of colonic stool. Edema th roughout the perirectal fat within the pelvic cavity. No convincing evidence of acute colonic divert iculitis. A very large number of undigested, hyperdense objects in the ascending colon, transverse c olon, descending colon, and sigmoid colon, consistent with undigested iron or calcium tablets. Diste nded urinary bladder with diffuse mild mural thickening. IMPRESSION: 1. Perirectal fat stranding: edema. 2. Enlarged prostate with low attenuation. This raises the possibility of acute prostatitis superim posed on benign prostatic hyperplasia (BPH). This does not rule out prostate cancer. Recommend fidencio elation with serum prostate specific antigen (PSA) levels. 3. Diffuse mural thickening of the urinary bladder. This could be due to sequela of chronic bladder outlet obstruction, chronic cystitis, or acute cystitis. 4. Cholelithiasis. 5. Moderate sized hiatal hernia. ARLIN R POS: RAZA
--- NOTE | 2018-03-09 18:42 | CT ---
CTA THORAX WITH CONTRAST: (Computed Tomographic Angiography, chest (noncoronary) with contrast material, and image post process ing) (PE protocol) HISTORY: A 67-year-old male with altered mental status with sepsis and dyspnea. TECHNIQUE: IV injection of iodinated contrast: Isovue. Scan acquisition timing attempted to coincide with iodinated contrast bolus reaching maximal density in pulmonary arteries. 3D MIP reconstructions. FINDINGS: Because of the patient's altered mental status, he was unable to cooperate. The upper extremities we re not elevated, causing streak artifact. Furthermore, the patient was unable to cooperate with angela th-holds. This results in breathing motion artifact. Because of these factors, evaluation of all th e branches of the bilateral pulmonary arteries is limited, including the proximal and the peripheral branches. There is no thrombus in the pulmonic trunk or in the left or right main pulmonary arteries . Ectasia and tortuosity of the thoracic aorta without aneurysm or dissection. No pleural effusion or pneumothorax. Dependent, mild, subsegmental atelectasis abutting the right posterior pleural surf ruthy. No consolidation or pulmonary edema. Twenty percent of the stomach is in the left hemithoracic cavity. IMPRESSION: 1. No central pulmonary thromboembolism. 2. Very difficult to evaluate for pulmonary thromboembolism involving all branches of the right and left main pulmonary arteries. 3. Moderate sized left-sided hiatal hernia. alfredo[] POS: RAZA
[2018-03-09] MEDS ORDERED: Acetaminophen 325 MG TAB PO PRN (21:01)
[2018-03-09] MEDS ORDERED: Ondansetron HCl/PF 4 MG/2 ML Vial IVP PRN (21:01)
[2018-03-09] MEDS ORDERED: VANCOMYCIN IVPB PRN (21:30)
[2018-03-09] MEDS ORDERED: Acetaminophen 650 MG Suppository PR PRN (21:51)
[2018-03-09] MEDS ORDERED: Acetaminophen 1,000 MG in Premix Bag 1 BAG IVPB SCH (22:00)
[2018-03-09] MEDS: Sodium Chloride 0.9% 1,000 ML IV SCH (22:03)
[2018-03-10 00:29] VITALS: BMI 23.1
[2018-03-10] MEDS: Meropenem 500 MG in Sodium Chloride 0.9% 100 ML IVPB SCH ×2 (02:47→11:16)
[2018-03-10 04:19] LABS: Hemoglobin A1c 5.1 % (4.0-6.0)
[2018-03-10 04:27] LABS: Anion Gap 11 mmol/L (10-20); BUN (Urea Nitrogen) 20 mg/dL (8.4-25.7); Calc. Creatinine Clearance 78 mL/min (70-130); Calcium 9.2 mg/dL (7.8-10.44); Carbon Dioxide 25 mmol/L (23-31); Chloride 101 mmol/L (98-107); Estimated GFR-MDRD 87; Glucose 116 mg/dL (80-115); Potassium 3.4 mmol/L (3.5-5.1); Sodium 134 mmol/L (136-145)
[2018-03-10 05:14] LABS: Band 40 % (5-11); Hemoglobin 10.4 g/dL (14.0-18.0); Lymphocytes 3 % (21-51); MDiff Complete? YES; Mean Corpuscular HGB CONC 33.5 g/dL (32.0-36.0); Mean Corpuscular Hemoglobin 30.2 pg (27.0-31.0); Mean Corpuscular Volume 90.3 fL (78.0-98.0); Mean Platelet Volume 7.4 fL (7.4-10.4); Metamyelocyte 1 % (0-0); Monocytes 12 % (0-10); Neutrophil 44 % (42-75); Platelet Count 135 thou/uL (130-400); RBC Distribution Width 14.9 % (11.5-14.5); Red Blood Cell (RBC) Count 3.44 mill/uL (4.70-6.10); White Blood Cell (WBC) Count 9.5 thou/uL (4.8-10.8)
[2018-03-10] MEDS ORDERED: Vancomycin HCl 1 GM in Premix Bag 1 BAG IVPB SCH (06:00)
--- NOTE | 2018-03-10 08:23 | HP ---
CODE STATUS: FULL CODE CHIEF COMPLAINT: Change in mental status. PRIMARY CARE DOCTOR: Dr. Patel. TIME OF EVALUATION: 08:00 p.m. HISTORY OF PRESENT ILLNESS: This is a 67-year-old male patient, information has been gathered from nursing staff and ER physician, patient has altered mental status, unable to answer questions accurately, so he came to the hospital , brought by EMS due to altered mental status. As per records, her baseline for the patient, he is fully alert and oriented x4. This change has been reported that has been present for 10 days, it is severe, no clear triggers, no alleviating factors. Of note, he has a past medical history of hyponatremia, hepatitis C, and hypertension. REVIEW OF SYSTEMS: Unable to obtain information due to altered mental status. PAST MEDICAL HISTORY: History of post-traumatic stress disorder, Parkinson, mood disorder, hyperosmolar, hyponatremia, chronic hepatitis C. PAST SURGICAL HISTORY: No surgical history. PSYCHIATRIC HISTORY: Schizophrenia, depression, PTSD. No history of hallucination. SOCIAL HISTORY: No alcohol, no drugs. No smoking history. FAMILY HISTORY: Unable to obtain, patient is noncooperative to interview. KNOWN ALLERGIES: TETRACYCLINE. REPORTED MEDICATIONS: Unable to obtain. PHYSICAL EXAMINATION: VITAL SIGNS: On presentation, blood pressure 143/85 with heart rate of 108, respiratory rate 27, temperature 99.8, oxygen saturation 93 on room air. GENERAL APPEARANCE: The patient is alert, disoriented. HEENT: Eyes: Normal conjunctivae. Dry oral mucosa. RESPIRATORY: Bilateral air entry. No rales, no wheezing. Symmetric expansion. CARDIOVASCULAR: Normal rate, regular rhythm, no murmurs, no gallop, no edema. ABDOMEN: Soft, normal bowel sounds. MUSCULOSKELETAL: Baseline range of motion and strength. No tenderness. SKIN: Warm and intact. No pallor, no rash, or redness. NEUROLOGIC: The patient is confused, unable to fully explore, no evidence of any new focal weakness. LABORATORY DATA: Reviewed. The patient has white count of 9.6, hemoglobin 11.6 , platelet count 154. Sodium was 131, potassium 3.6, carbon dioxide 24, anion gap 12, BUN 20, creatinine 0.84, GFR 18, glucose 165. CK was 4780. Troponin was negative. Lipase was negative. TSH was normal. Urine: The patient has a white count in the urine of 150 too numerous to count. Radiology was reviewed. The patient's chest CTA: No central pulmonary thromboembolism, very difficult to evaluate pulmonary embolism, involvement of branches of the right and left margin pulmonary arteries, moderate size hiatal hernia. Abdomen and pelvis CT: The patient has perirectal fat stranding edema, enlarged prostate with low attenuation that arise possibility for acute prostatitis, superimposed and benign prostatic hyperplasia. This does not rule out prostate cancer, diffuse mural thickening of the urinary bladder. This could be due to sequela of chronic bladder outlet obstruction, chronic cystitis or acute cystitis, cholelithiasis, moderate size hiatal hernia. Chest x-ray, hiatal hernia, mild linear density in the right base, significant volume loss and infectious pneumonitis, no lobar consolidation or alveolar edema. ASSESSMENT AND PLAN: The patient will be placed in the hospital with the following medical condition: 1. Acute encephalopathy, likely secondary to underlying infection, we will treat the underlying etiology, the patient will need supportive care as inpatient. 2. Urinary tract infection, etiology for acute encephalopathy, patient already on antibiotics, we will follow cultures, we will monitor and adjust antibiotics as needed. 3. Acute prostatitis is seen on the CAT scan, likely infectious, we will see on the monitor. Treatment as above. 4. Uncontrolled hypertension. The patient presented with systolic blood pressure 143, reconciled medications, not treated aggressively since patient has underlying sepsis. 5. Sepsis secondary to urinary tract infection. The patient presented with heart rate more than 90, respiratory rate more than 20, treatment as above. 6. Rhabdomyolysis, patient has CK 4700, will hydrate, will Monitor CK level, as of now kidneys presumed no damage, monitor kidney function. 7. Hyperglycemia, glucose 165, no reported diabetes, we will send hemoglobin A1c, we will monitor, could be secondary to acute distress or glucose intolerance, we will monitor and adjust the treatment as needed. 8. Deep venous thrombosis prophylaxis. MTDD
[2018-03-10] MEDS ORDERED: Prevnar 13-Val Conj/PF 0.5 ML SYRINGE IM ONE (09:00)
[2018-03-10] MEDS: Docusate 100 MG CAP PO SCH ×2 (09:57→19:54)
[2018-03-10] MEDS: Benztropine 1 MG TAB PO SCH ×2 (09:57→19:54)
[2018-03-10] MEDS: carBAMazepine 200 MG TAB PO SCH ×2 (09:58→19:54)
[2018-03-10] MEDS: Carbidopa/Levodopa 10-100 mg Tablet PO SCH ×3 (09:58→19:55)
[2018-03-10] MEDS: DULoxetine 60 MG CAP PO SCH (09:58)
[2018-03-10] MEDS: Enoxaparin Sodium 40 MG/0.4 ML SYRINGE SC SCH (09:59)
[2018-03-10] MEDS: Sodium Chloride 0.9% 1,000 ML IV SCH ×2 (09:59→18:05)
--- NOTE | 2018-03-10 10:14 | PDOC.PN ---
- Subjective Encounter Start Date: 03/10/18 Encounter Start Time: 10:11 Mr. Cantu was seen today in follow-up of UTI with sepsis/ encephalopathy. He is alert and oriented to person, and the year and month. He knows he is in a hospital,but not which one. He says he feels terrible this morning, but the nurse reports he is much more alert than he was last night, with regards to confusion, and lethargy. - Objective Resuscitation Status: Resuscitation Status FULL:Full Resuscitation MAR Reviewed: Yes Vital Signs & Weight: Vital Signs (12 hours) Temp Pulse Resp BP Pulse Ox 03/10/18 07:44 97.6 F 67 19 108/66 100 03/10/18 04:04 97.6 F 81 H 109/65 17 L 03/10/18 02:00 98.2 F 03/10/18 00:05 100.0 F H 117 H 25 H 131/71 99 I&O: 03/09/18 03/10/18 03/11/18 06:59 06:59 06:59 Intake Total 880 Output Total 850 Balance 30 Result Diagrams: 03/10/18 03:45 03/10/18 03:44 Phys Exam - Physical Examination HEENT: PERRLA, sclera anicteric Respiratory: no wheezing, no rales, clear to auscultation bilateral + occasional rhonchi Cardiovascular: RRR, no significant murmur, no rub Gastrointestinal: soft, non-tender, positive bowel sounds Musculoskeletal: no edema Dx/Plan (1) UTI (urinary tract infection) Status: Acute (2) Metabolic encephalopathy Code(s): G93.41 - METABOLIC ENCEPHALOPATHY Status: Acute (3) Schizophrenia Code(s): F20.9 - SCHIZOPHRENIA, UNSPECIFIED Status: Acute (4) Parkinson disease Code(s): G20 - PARKINSON'S DISEASE Status: Chronic Comment: stable (5) BPH (benign prostatic hyperplasia) Code(s): N40.0 - BENIGN PROSTATIC HYPERPLASIA WITHOUT LOWER URINRY TRACT SYMP Status: Acute (6) Rhabdomyolysis Code(s): M62.82 - RHABDOMYOLYSIS Status: Acute - Plan * UTI with metabolic encephalopathy- can likely deescalate antibiotics, pending culture results- will change to Rocephin, and Levaquin * Metabolic encephalopathy- improved * Rhabomyolysis- continue IV fluids, and monitor renal function and CK * Parkinson's disease, and Schizophrenia- will re-start his home medications.
[2018-03-10] MEDS: cefTRIAXone\\ROCEPHIN 1 GM in Sodium Chloride 0.9% 100 ML IVPB SCH (11:22)
--- NOTE | 2018-03-10 20:44 | CON ---
DATE OF CONSULTATION: 03/10/2018 HISTORY OF PRESENT ILLNESS: Mr. Cantu is 67-year-old gentleman who lives in a retirement as a result of Parkinson disease. He has been admitted to the intermediate care unit in the past and was last h ere in 10/2017. Lives up in [facility]. When he presented here when I saw him back in October, he just moved to this area. He was in the [facility] in [place]. He was wearing a [place] tracking brace on when I saw him ba vicky in October. He apparently moved over here to be close to his sister. He was admitted with severe hyponatremia and this was corrected and he was successfully released home . PAST MEDICAL HISTORY: Remarkable for Parkinson disease, hypertension, hepatitis C. 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 He has a history of schizophrenia, depression, and reportedly posttraumatic stress disorder. SOCIAL HISTORY: He is not a smoker, drinker or alcohol user at this time. FAMILY HISTORY: Noncontributory. He has no living family other than a sister nearby. Does not have any children he says. REVIEW OF SYSTEMS: Ten-point review of system is otherwise negative. He says he feels much better t [place]arton when he came in. PHYSICAL EXAMINATION: VITAL SIGNS: He is afebrile, heart rate 67, respiratory rate is 18, oximetry is 100% on room air, bl ood pressure 120/70. HEENT: Pupils are equal. Sclerae is icteric. NECK: Supple. He has no lymphadenopathy. LUNGS: Remarkable for no crackles or wheezes at this time. HEART: Regular rhythm. S1 and S2 are normal. He has grade 1-2/6 systolic murmur. ABDOMEN: Soft and nontender. EXTREMITIES: Without clubbing, cyanosis, or edema. NEUROLOGIC: Grossly nonfocal. IMPRESSION: Encephalopathy, resolving. Apparently, an abdomen and pelvis CT showing large prostate that with findings consistent with acute prostatitis. His blood cultures to date are negative. There is no urine culture in the system that I can find. Given his clinical improvement, he is probably stable to move out of the intermediate care unit. This is a 50 minute consult, greater than 50% of the time was spent in the unit coordinating care.
[2018-03-10] MEDS ORDERED: traZODone HCl 50 MG TAB PO SCH (21:00)
[2018-03-11] MEDS: Sodium Chloride 0.9% 1,000 ML IV SCH ×2 (08:50→16:48)
[2018-03-11] MEDS: Enoxaparin Sodium 40 MG/0.4 ML SYRINGE SC SCH (08:52)
[2018-03-11] MEDS: Benztropine 1 MG TAB PO SCH (08:52)
[2018-03-11] MEDS: DULoxetine 60 MG CAP PO SCH (08:52)
[2018-03-11] MEDS: carBAMazepine 200 MG TAB PO SCH (08:53)
[2018-03-11] MEDS: Docusate 100 MG CAP PO SCH (08:54)
[2018-03-11] MEDS: cefTRIAXone\\ROCEPHIN 1 GM in Sodium Chloride 0.9% 100 ML IVPB SCH (12:46)
[2018-03-11] MEDS: Carbidopa/Levodopa 10-100 mg Tablet PO SCH ×2 (12:46→16:48)
--- NOTE | 2018-03-11 14:31 | PDOC.PN ---
- Subjective Encounter Start Date: 03/11/18 Encounter Start Time: 14:28 Mr. Cantu was seen today in follow-up of UTI. He does not have any complaints. - Objective Resuscitation Status: Resuscitation Status FULL:Full Resuscitation MAR Reviewed: Yes Vital Signs & Weight: Vital Signs (12 hours) Temp Pulse Resp BP Pulse Ox 03/11/18 11:00 98.6 F 98 20 167/89 H 94 L 03/11/18 08:00 98.6 F 98 20 94 L 03/11/18 07:12 98.9 F 87 18 159/85 H 94 L 03/11/18 04:51 98.2 F 103 H 20 164/89 H 93 L I&O: 03/10/18 03/11/18 03/12/18 06:59 06:59 06:59 Intake Total 880 240 Output Total 850 300 300 Balance 30 -60 -300 Result Diagrams: 03/10/18 03:45 03/10/18 03:44 Phys Exam - Physical Examination HEENT: PERRLA, sclera anicteric Respiratory: no wheezing, no rales, no rhonchi, clear to auscultation bilateral Cardiovascular: RRR, no significant murmur, no rub Gastrointestinal: soft, non-tender, no distention, positive bowel sounds Musculoskeletal: no edema Dx/Plan (1) UTI (urinary tract infection) Status: Acute (2) Metabolic encephalopathy Code(s): G93.41 - METABOLIC ENCEPHALOPATHY Status: Acute (3) Schizophrenia Code(s): F20.9 - SCHIZOPHRENIA, UNSPECIFIED Status: Acute (4) Parkinson disease Code(s): G20 - PARKINSON'S DISEASE Status: Chronic Comment: stable (5) BPH (benign prostatic hyperplasia) Code(s): N40.0 - BENIGN PROSTATIC HYPERPLASIA WITHOUT LOWER URINRY TRACT SYMP Status: Acute (6) Rhabdomyolysis Code(s): M62.82 - RHABDOMYOLYSIS Status: Acute - Plan * UTI- urine culture is growing E. Coli which is sensitive to Cephalosporins and Quinolones. * He is clinically stable and improved * He is stable for discharge back to [place].
--- NOTE | 2018-03-11 17:33 | PRG ---
DATE OF SERVICE: 03/11/2018 OBJECTIVE: GENERAL: Magdaleno Cantu is in no distress. VITAL SIGNS: He is afebrile, heart rate 70, respiratory rate 20, oximetry is 94, blood pressure 167/ 89. LUNGS: Clear. HEART: Regular rhythm. Escherichia coli was isolated in his urine scan. CT scan was consistent with prostatitis. IMPRESSION: 1. Prostatitis. 2. Parkinson's disease. 3. History of hypertension. 4. History of hepatitis. 5. 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 6. History of schizophrenia. 7. History of depression. 8. History reportedly of posttraumatic stress disorder. 9. History of incarceration in [place]. He is wearing an ankle brace when I met him last year that was tracking brace but now he lives in [facility]. Appears to be stable. His antibiotics have been adjusted by the hospitalists. Antibiotics are being addressed by the hospitalist. We will sign off.
[2018-03-11 19:10] VITALS: BP 167/94; TEMP 98.3
[2018-03-12] MEDS ORDERED: Amlodipine 5 MG TAB PO SCH (09:00)
--- NOTE | 2018-03-13 14:30 | PQF ---
[facility] Physician Query Form PJMARICHUY RIDLEY [id number] CLINICAL DOCUMENTATION CLARIFICATION FORM: POST DISCHARGE Addendum to original discharge summary date: ____ Late entry note date: __ DATE: 03/13/18 ATTN: Dr. Marichuy De Los Santos Please exercise your independent, professional judgment in responding to the clarification form. Clinical indicators are provided on the bottom of this form for your review Please check appropriate box(s) to clarify if the following diagnosis has been ruled in or ruled out: Sepsis [ ] Ruled in diagnosis [ ] Continue to treat [ ] Resolved [ ] Ruled out diagnosis [ ] Cannot rule out diagnosis [ ] Other diagnosis [ ] Unable to determine In addition, please specify: Present on Admission (POA): [ ] Yes [ ] No [ ] Unable to determine For continuity of documentation, please document condition throughout progress notes and discharge summary. Thank You. CLINICAL INDICATORS - SIGNS / SYMPTOMS / LABS heart rate more than 90 respitatory rate more than 20 RISK [employer]CTORS UTI TREATMENTS (This form is maintained as a part of the permanent medical record) 2014 [employer]. All Rights Reserved Page 1 of 2 Note to Provider: In responding to this query, you must exercise independent clinical judgment. The fact that a query is placed does not imply that any particular answer is desired or expected. Please document your response/ clarification to this query in the patients medical record. Your response should clarify and resolve conflicting, ambiguous, or incomplete information in the health record regarding any significant reportable condition or procedure. ( 2008 [facility] Practice Brief, pg. 5) [employer] does not endorse or approve queries developed by the hospital or its agents and issued through the [employer] software that are not in accordance with the rules or regulations promulgated by the Centers for Medicare and Medicaid (CMS), Office of Shift Engineer (OIG), or US Department of Health and Human Services and [facility] 2008 Practice Brief Managing an Effective Query Process or its updates (Practice Brief). JESSICA
== END 2018-03-11 19:11 | DRG 871 ==
LOC: ERS 16:32 → IMCU/EMU 18:51 → T4-A 03-10 15:40
PROVIDERS: ADMIT Internal Medicine; ATTEND Internal Medicine
DX: A41.9 Sepsis, unspecified organism (principal); G93.41 Metabolic encephalopathy; N39.0 Urinary tract infection, site not specified; M62.82 Rhabdomyolysis; N41.9 Inflammatory disease of prostate, unspecified; B96.20 Unspecified Escherichia coli [E. coli] as the cause of diseases classified elsewhere; G20 Parkinson's disease; I10 Essential (primary) hypertension; K75.9 Inflammatory liver disease, unspecified; F20.9 Schizophrenia, unspecified; F32.9 Major depressive disorder, single episode, unspecified; F43.10 Post-traumatic stress disorder, unspecified; X58.XXXA Exposure to other specified factors, initial encounter; Y93.9 Activity, unspecified; Y92.9 Unspecified place or not applicable; Y99.9 Unspecified external cause status; N40.0 Benign prostatic hyperplasia without lower urinary tract symptoms; B19.20 Unspecified viral hepatitis C without hepatic coma
CPT/HCPCS: 36415; 51701; 71045; 71275; 74177; 80048; 80053; 81003; 81015; 82550; 82553; 83036; 83540; 83605; 83690; 83735; 84443; 84484; 85025; 87040; 87077; 87086; 87186; 90471; 90670; 96365; 96368; A4216; G0009; J0131; J0696; J1650; J1956; J2185; J3370; J7050

== ENCOUNTER 2018-05-14 09:05 | Outpatient (CLI) | payer MEDICARE, MEDICAID ==
--- NOTE | 2018-05-14 15:19 | NM ---
NUCLEAR MEDICINE BRAIN IMAGING: Date: 05/14/18 HISTORY: Parkinson's disease. TECHNIQUE: A DaTscan with axial tomographic imaging of the brain was obtained 3 hours following the intravenous administration of 4.9 mCi Iodine-123 Ioflupane. The patient was pretreated with 130 mg of potassium i odide 1 hour prior to the injection. FINDINGS: There is loss of symmetric uptake in the striata bilaterally with greater degree on the right compare d to the left. IMPRESSION: Parkinsonian syndrome. POS: OFF
== END 2018-05-14 09:06 | disposition home or self-care (01) ==
LOC: NM 09:05
PROVIDERS: ATTEND Psychiatry & Neurology Neurology
DX: G20 Parkinson's disease (principal)
CPT/HCPCS: 78607; A9584

== ENCOUNTER 2018-06-25 11:57 | Day surgery (SDC) | payer MEDICARE, MEDICAID ==
[2018-06-24 11:09] VITALS: BMI 21.1
[2018-06-25] MEDS ORDERED: Midazolam HCl 2 mg/2 ml Vial ONE (14:05)
--- NOTE | 2018-06-25 15:52 | OP ---
DATE OF PROCEDURE: 06/25/2018 GI ENDOSCOPY NOTE SURGEON: Berto Jarvis M.D. INWEAVER SURGEON: None. PROCEDURES: 1. Esophagogastroduodenoscopy with biopsies. 2. Colonoscopy, aborted due to very poor bowel prep. INDICATIONS: 1. History of Narvaez's esophagus, in need of surveillance. 2. Chronic constipation. 3. Weight loss. 4. This is the patient's first attempt at colonoscopy. MEDICATIONS: See anesthesia record. FINDINGS: After discussion of the risks, benefits and alternatives of the procedure, informed consen t was obtained and witnessed. Pre-endoscopic cardiopulmonary examination was satisfactory. Timeout was performed before sedation was achieved. Sedation was achieved with anesthesia assistance in the endoscopy unit. A Pentax adult upper endoscope was placed into the oropharynx and passed through the cricopharyngeus under direct visualization. The esophageal mucosa appeared normal in the proximal a nd mid esophagus. The Z-line is at 29 cm from the incisors, and the top of the gastric folds is at 3 5 cm from the incisors. Between these two areas, he has a 6 cm segment of circumferential Narvaez's esophagus. There is no nodularity and no other visible abnormalities in this area. The endoscope wa s advanced into the stomach and he was found to have a 10 cm sliding hiatal hernia from 35 cm to 45 c m. There are no associated Calixto erosions. However, in the gastric antrum, there is some moderate patchy erythema with a few small erosions consistent with erosive gastritis. I obtained biopsies fr om the gastric antrum and body to rule out H. pylori infection. The endoscope was advanced through t he pylorus and into the first and second portions of the duodenum which appeared normal. I obtained Narvaez's surveillance biopsies. I got four quadrant biopsies at 34 cm, 32 cm, and 30 cm from the in cisors. The upper endoscope was then completely withdrawn and the patient was repositioned. Digital rectal exam was performed which was unremarkable. A Pentax adult colonoscope was inserted in to the anus; however, the patient has a large amount of liquid and semi-solid stool throughout the re ctum and sigmoid colon. This completely obscures my view of the colonic mucosa. Because of this, it was decided to abort the colonoscopy procedure and try again at a later date. The endoscope was com pletely withdrawn and the patient allowed to recover. The patient tolerated the procedure well. The re were no immediate post-procedure complications. IMPRESSION: 1. A 6 cm circumferential Narvaez's esophagus from 29-35 cm, biopsied for surveillance at 34 cm, 32 cm, and 30 cm. 2. A 10 cm hiatal hernia from 35-45 cm. 3. Erosive gastritis in the antrum, biopsied to rule out Helicobacter pylori. 4. Poor bowel prep. RECOMMENDATIONS: 1. Follow up pathology on the Narvaez's surveillance biopsies as well as the gastric biopsies. 2. Continue with daily omeprazole 40 mg for now. 3. Minimize nonsteroidal anti-inflammatory drugs if possible. Note that ibuprofen is on his medicat ion list. Would recommend Tylenol instead. 4. We will need to reschedule him for colonoscopy with a 2-day bowel prep, a bottle of magnesium cit rate administered the day prior. 5. His MiraLax can be up titrated to 117 gram dose, given 1-4 times per day, titrated in order to ac hieve a daily bowel movement.
== END 2018-06-25 15:35 | disposition home or self-care (01) ==
LOC: SDC 11:57
PROVIDERS: ATTEND Internal Medicine
PROC: 0DB58ZX Excision of Esophagus, Via Natural or Artificial Opening Endoscopic, Diagnostic (ICD-10-PCS; principal; 2018-06-25)
PROC: 0DB68ZX Excision of Stomach, Via Natural or Artificial Opening Endoscopic, Diagnostic (ICD-10-PCS; 2018-06-25)
PROC: 0DJD8ZZ Inspection of Lower Intestinal Tract, Via Natural or Artificial Opening Endoscopic (ICD-10-PCS; 2018-06-25)
DX: K22.70 Barrett's esophagus without dysplasia (principal); K59.09 Other constipation; K44.9 Diaphragmatic hernia without obstruction or gangrene; K25.9 Gastric ulcer, unspecified as acute or chronic, without hemorrhage or perforation; I10 Essential (primary) hypertension; K21.9 Gastro-esophageal reflux disease without esophagitis; G20 Parkinson's disease; F25.9 Schizoaffective disorder, unspecified; F43.12 Post-traumatic stress disorder, chronic; B18.2 Chronic viral hepatitis C; E46 Unspecified protein-calorie malnutrition; Z68.21 Body mass index [BMI] 21.0-21.9, adult; Z79.899 Other long term (current) drug therapy; Z88.1 Allergy status to other antibiotic agents; Z53.8 Procedure and treatment not carried out for other reasons
CPT/HCPCS: 88305; 88312; 88313; J2250

== ENCOUNTER 2018-09-22 10:31 | Day surgery (SDC) | payer MEDICARE, MEDICAID ==
--- NOTE | 2018-09-22 15:21 | OP ---
DATE OF PROCEDURE: 09/22/2018 GI ENDOSCOPY NOTE REFERRING PHYSICIAN: Dedra Patel MD CLINICAL PSYCHOLOGY TEACHER SURGEON: None. PROCEDURE PERFORMED: Colonoscopy, diagnostic. INDICATIONS: 1. Chronic constipation. 2. Weight loss, recently stabilized. 3. Prior attempted colonoscopy was aborted secondary to poor bowel preparation. MEDICATIONS: See Anesthesia record. FINDINGS: After discussion of the risks, benefits, and alternatives of the procedure, informed consent was obtained and witnessed. Pre-endoscopic cardiopulmonary examination was satisfactory. Time-out was performed before sedation was achieved. Sedation was achieved with Anesthesia assistance in the endoscopy unit. Digital rectal exam was performed, which demonstrated external hemorrhoidal skin tags. The Pentax adult colonoscope was inserted into the anus and passed forward to the cecum in the usual fashion. The cecal base was identified by the appendiceal orifice as well as the ileocecal valve. The terminal ileum was not intubated. Advancement to the cecum was very difficult due to the patient's tortuous and redundant colon and it required manual pressure and loop reduction in order to achieve cecal intubation. The colonoscope was then slowly withdrawn in a gradual and circumferential manner with careful examination of the entire colonic mucosa. The quality of the preparation was fair, but satisfactory for the purposes of our examination. There was no evidence of any mass or lesions in the colon. No polyps visualized. The colonic mucosa appeared normal throughout. Retroflexion in the rectum demonstrated internal hemorrhoids. The colonoscope was completely withdrawn, and the patient allowed to recover. The patient tolerated the procedure well. There were no immediate postprocedure complications. IMPRESSION: 1. Tortuous and redundant colon. 2. Internal hemorrhoids. 3. Otherwise normal colonoscopy to the cecum, with fair bowel preparation. RECOMMENDATIONS: 1. No repeat colonoscopy is advised due to the patient's age and comorbidities and absence of polyps on this exam. 2. Continue with bowel regimen as needed. I think the patient would benefit from MiraLAX at least once a day, stool softener once or twice daily, also milk of magnesia daily p.r.n. 3. The patient can follow up on an as-needed basis in the GI clinic. Job ID: [id number]
== END 2018-09-22 13:47 | disposition home or self-care (01) ==
LOC: SDC 10:31
PROVIDERS: ATTEND Internal Medicine
PROC: 0DJD8ZZ Inspection of Lower Intestinal Tract, Via Natural or Artificial Opening Endoscopic (ICD-10-PCS; principal; 2018-09-22)
DX: K59.09 Other constipation (principal); K64.8 Other hemorrhoids; K63.89 Other specified diseases of intestine; F25.9 Schizoaffective disorder, unspecified; F43.12 Post-traumatic stress disorder, chronic; G20 Parkinson's disease; I10 Essential (primary) hypertension; K21.9 Gastro-esophageal reflux disease without esophagitis; B18.2 Chronic viral hepatitis C; Z79.899 Other long term (current) drug therapy; Z88.1 Allergy status to other antibiotic agents

== ENCOUNTER 2018-10-08 11:43 | Inpatient (IN) | payer MEDICARE, MEDICAID ==
[2018-10-08 12:38] LABS: Bilirubin Negative (Negative); Blood, Urine Trace (Negative); Clarity CLOUDY (Clear); Glucose, Urine (Dipstick) Negative (Negative); Leukocyte Moderate (Negative); Nitrite Positive (Negative); Protein, Urine (Dipstick) Negative (Neg-Trace); pH, Urine 6.5 (5.0-9.0)
[2018-10-08 12:40] LABS: Bacteria/HPF Rare-Few HPF (None Seen); Hyaline Casts/LPF 0-3 HYALINE CAST LPF (0-3 Hyaline); RBC/HPF 0-3 HPF (0-3); Squamous Epithelial None Seen HPF (0-3)
[2018-10-08 12:53] LABS: Amphetamine Not Detected (NotDetected); Barbiturates Screen Not Detected (NotDetected); Benzodiazepine Screen Not Detected (NotDetected); Cocaine Metabolite Screen Not Detected (NotDetected); Medtox Control Line Valid? VALID (VALID); Medtox Reader # READER 4; Methadone Not Detected (NotDetected); Methamphetamine Not Detected (NotDetected); Opiate Screen Not Detected (NotDetected); Oxycodone Screen Not Detected (NotDetected); Phencyclidine (PCP) Not Detected (NotDetected); THC/Cannabinoid Screen Not Detected (NotDetected); Tricyclic Screen Not Detected (NotDetected)
--- NOTE | 2018-10-08 13:03 | RAD ---
CHEST 1 VIEW: HISTORY: Altered mental status. COMPARISON: 03/09/2018. FINDINGS: Cardiac silhouette and pulmonary vasculature are unremarkable. Mediastinum is midline. Lungs remain slightly hyperinflated. Hiatal hernia is similar in appearance to the prior study. Calcified granu lomata are consistent with healed granulomatous disease. No evidence of pneumothorax. IMPRESSION: Chronic-type findings are stable. No active cardiopulmonary abnormalities are demonstrated. POS: [facility]
--- NOTE | 2018-10-08 13:13 | CT ---
CT HEAD NONCONTRAST: History: Altered mental status. Comparison: 11-01-17 FINDINGS: There is no evidence of acute intracranial hemorrhage or infarct. Diffuse cortical atrophy and chroni c ischemic small vessel disease are similar in appearance to the prior study. There is no mass effect or shift of midline structures. Visualized paranasal sinuses remain well aerated. IMPRESSION: No acute intracranial abnormalities are demonstrated. POS: [facility]
[2018-10-08 13:29] LABS: #Lymphocytes 1.2 thou/uL (1.20-3.40); #Monocytes 1.1 thou/uL (0.11-0.59); #Neutrophils 10.2 thou/uL (1.40-6.50); %Basophils 0.2 % (0.0-1.0); %Eosinophils 0.2 % (0.0-10.0); %Lymphocytes 9.2 % (21.0-51.0); %Monocytes 8.9 % (0.0-10.0); %Neutrophils 81.5 % (42.0-75.0); Mean Corpuscular HGB CONC 32.1 g/dL (32.0-36.0); Mean Corpuscular Hemoglobin 28.3 pg (27.0-31.0); Mean Corpuscular Volume 88.1 fL (78.0-98.0); Mean Platelet Volume 7.4 fL (7.4-10.4); Platelet Count 179 thou/uL (130-400); RBC Distribution Width 14.7 % (11.5-14.5); Red Blood Cell (RBC) Count 4.25 mill/uL (4.70-6.10); White Blood Cell (WBC) Count 12.5 thou/uL (4.8-10.8)
[2018-10-08] MEDS ORDERED: Lorazepam 2 MG/ML VIAL ONE ×2 (13:42→13:54)
[2018-10-08 14:02] LABS: ALT (SGPT) Less than 7 U/L (8-55); AST (SGOT) 68 U/L (5-34); Albumin 4.7 g/dL (3.4-4.8); Alkaline Phosphatase 105 U/L (40-150); Anion Gap 14 mmol/L (10-20); BUN (Urea Nitrogen) 14 mg/dL (8.4-25.7); Bilirubin, Total 0.8 mg/dL (0.2-1.2); Calc. Creatinine Clearance 0 mL/min (70-130); Calcium 10.1 mg/dL (7.8-10.44); Carbon Dioxide 23 mmol/L (23-31); Chloride 98 mmol/L (98-107); Estimated GFR-MDRD Greater than 90; Globulin 3.1 g/dL (2.4-3.5); Glucose 103 mg/dL (80-115); Potassium 3.8 mmol/L (3.5-5.1); Protein, Total 7.8 g/dL (5.8-8.1); Sodium 131 mmol/L (136-145)
[2018-10-08 14:03] LABS: Acetaminophen Less than 6.0 mcg/mL (10.0-30.0); Alcohol Less than 10 mg/dL (Less than 10); Salicylate Less than 8.0 mg/dL (15.0-30.0)
[2018-10-08] MEDS ORDERED: Sodium Chloride 0.9% 100 ML ONE (14:09)
[2018-10-08] MEDS ORDERED: cefTRIAXone\\ROCEPHIN 1 GM VIAL ONE (14:09)
[2018-10-08 14:15] LABS: CK (CPK) 5625 U/L (30-200)
[2018-10-08] MEDS ORDERED: Ondansetron ODT 4 MG TAB PO PRN (14:33)
--- NOTE | 2018-10-08 15:09 | HP ---
PRIMARY CARE PROVIDER: Dedra Patel MD REASON FOR VISIT: [facility] to [facility], referred to [facility] for altered mental status and UTI. HISTORY OF PRESENT ILLNESS: Mr. Cantu is awake, but nonverbal. No appropriate response. No history is available except that he has had a decline in his mental status compared to baseline. PAST MEDICAL HISTORY: PTSD, depression, Parkinson's syndrome, hepatitis C, hyponatremia, and hypertension. PAST SURGICAL HISTORY: None. ALLERGIES: TETRACYCLINE. MEDICATIONS: Listed as; 1. Benztropine 0.5 mg a day. 2. Carbamazepine 200 mg, unknown frequency. 3. Sinemet 10/100 three times a day. 4. Hydrochlorothiazide 25 mg a day. 5. Lactulose 20 g once a day. 6. Norvasc 5 mg a day. 7. Prilosec 40 mg a day. 8. Cymbalta 60 mg a day. 9. Trazodone 100 mg a day. 10. Lisinopril 20 mg twice a day. 11. Colace 100 mg a day. 12. Geodon 40 mg, unknown frequency. REVIEW OF SYSTEMS: Unobtainable. The patient is nonverbal. There are no informants. SOCIAL HISTORY: Chart states he has not smoked tobacco or used alcohol or recreational drugs. FAMILY HISTORY: The chart reveals no history of coronary artery disease. No other information is available. CODE STATUS: Full code as he is unable to give a status. PHYSICAL EXAMINATION: GENERAL: The patient is awake, trying to get out of bed continually. He has been given lorazepam in the ER to try to stop him. VITAL SIGNS: Blood pressure 175/92, pulse of 100, respirations 22, room air sat 96%, and temperature of 98.8. HEAD, EYES, EARS, NOSE, AND THROAT: Reveal pupils equal and round. Extraocular movements grossly intact. Sclerae are white. Tympanic membranes are clear. Nose is clear. Oral mucous membranes are wet. Dental hygiene is fair to poor. NECK: No jugular venous distention, adenopathy, or thyromegaly. CHEST: Clear to auscultation and percussion. HEART: Regular rate and rhythm. First and second heart sounds clear. No appreciated murmurs or gallops. ABDOMEN: Soft. Bowel sounds are normal. There is no hepatosplenomegaly. No mass. No rebound. EXTREMITIES: Reveal no cyanosis, clubbing, or edema. PULSES: Carotid, radial, femoral, and dorsalis pedis pulses are intact and symmetric. SKIN: Warm and dry without bruises or rash. HEME/LYMPH: No tender or swollen lymph nodes in the axilla, inguinal, or cervical area. NEUROLOGICAL: Cranial nerves II through XII are grossly intact. Moves all extremities. Has increased rigidity of upper and lower extremities with a tremor in his hands. IMAGING DATA: Chest x-ray; no CHF, infiltrate, cardiomegaly, reviewed by me. CT scan of the brain, no acute intracranial process. LABORATORY DATA: Metabolic profile; sodium 131, AST 68, ALT less than 7. Creatine kinase 5625. Troponin 0.020. TSH 0.054. Everything else on comprehensive metabolic profile is normal. He has a modestly elevated white count of 12.5, hemoglobin 12.6, platelet count of 179,000, and absolute neutrophilia. Tox screen is negative. Urine shows moderate leukocyte esterase, positive nitrite. UA greater than 50 wbc's per high-powered field. ADMITTING DIAGNOSES: 1. Altered mental status. 2. Urinary tract infection. 3. Hepatitis C with a normal ammonia. 4. Parkinson disease with a history of early dementia. 5. Chronic hyponatremia. Reviewed his old charts. His sodium is normally about 130. 6. Hypertension. PLAN: 1. Urine culture has been ordered. 2. Rocephin will be started IV. 3. Selective home medicines will be continued. 4. IV fluids will be administered until we confirm his intake status. 5. Selected home medicines. Job ID: [id number]
[2018-10-09] MEDS: Benztropine 1 MG TAB PO SCH ×3 (03:02→20:20)
[2018-10-09] MEDS: Carbidopa/Levodopa 10-100 mg Tablet PO SCH ×4 (03:02→20:20)
[2018-10-09] MEDS: carBAMazepine 200 MG TAB PO SCH ×3 (03:02→20:20)
[2018-10-09] MEDS: Dextrose 5 %-0.45 % NaCl 1,000 ML IV SCH ×4 (03:21→21:27)
[2018-10-09 04:12] VITALS: BMI 22.0
[2018-10-09 05:07] LABS: #Basophils 0.1 thou/uL (0.0-0.2); #Eosinphils 0.1 thou/uL (0.0-0.7); #Lymphocytes 1.4 thou/uL (1.20-3.40); #Monocytes 1.2 thou/uL (0.11-0.59); #Neutrophils 8.2 thou/uL (1.40-6.50); %Basophils 0.5 % (0.0-1.0); %Eosinophils 0.5 % (0.0-10.0); %Lymphocytes 13.2 % (21.0-51.0); %Monocytes 10.8 % (0.0-10.0); Hemoglobin 10.8 g/dL (14.0-18.0); Mean Corpuscular HGB CONC 32.5 g/dL (32.0-36.0); Mean Corpuscular Hemoglobin 28.5 pg (27.0-31.0); Mean Corpuscular Volume 87.5 fL (78.0-98.0); Mean Platelet Volume 7.3 fL (7.4-10.4); Platelet Count 131 thou/uL (130-400); RBC Distribution Width 14.6 % (11.5-14.5); Red Blood Cell (RBC) Count 3.81 mill/uL (4.70-6.10); White Blood Cell (WBC) Count 10.9 thou/uL (4.8-10.8)
[2018-10-09 05:28] LABS: Anion Gap 12 mmol/L (10-20); BUN (Urea Nitrogen) 13 mg/dL (8.4-25.7); Calc. Creatinine Clearance 92 mL/min (70-130); Calcium 9.5 mg/dL (7.8-10.44); Carbon Dioxide 23 mmol/L (23-31); Chloride 100 mmol/L (98-107); Estimated GFR-MDRD Greater than 90; Glucose 129 mg/dL (80-115); Potassium 3.5 mmol/L (3.5-5.1); Sodium 131 mmol/L (136-145)
--- NOTE | 2018-10-09 08:54 | PDOC.PN ---
- Subjective Encounter Start Date: 10/09/18 Encounter Start Time: 08:53 Subjective: alert, responsive - Objective Resuscitation Status - Order Detail: 10/08/18 14:29 Resuscitation Status Routine Resuscitation Status: FULL: Full Resuscitation MAR Reviewed: Yes Vital Signs & Weight: Vital Signs (12 hours) Temp Pulse Resp BP Pulse Ox 10/09/18 07:57 97.7 F 78 18 152/88 H 94 L 10/09/18 04:00 97.2 F L 84 18 136/80 97 10/09/18 01:30 98.5 F 84 20 158/87 H 95 Weight Weight 153 lb 9 oz I&O: 10/08/18 10/09/18 10/10/18 06:59 06:59 06:59 Intake Total 320 Balance 320 Result Diagrams: 10/09/18 04:58 10/09/18 04:58 Phys Exam - Physical Examination Neck: no JVD Respiratory: clear to auscultation bilateral Cardiovascular: RRR, no significant murmur Gastrointestinal: soft, positive bowel sounds Musculoskeletal: no edema Dx/Plan (1) Sepsis Code(s): A41.9 - SEPSIS, UNSPECIFIED ORGANISM Status: Acute Qualifiers: Sepsis type: Escherichia coli Qualified Code(s): A41.51 - Sepsis due to Escherichia coli [E. coli] (2) HTN (hypertension) Code(s): I10 - ESSENTIAL (PRIMARY) HYPERTENSION Status: Chronic Qualifiers: Hypertension type: essential hypertension Comment: monitor vital signs and titrate antihypertensives as needed (3) Hyponatremia Code(s): E87.1 - HYPO-OSMOLALITY AND HYPONATREMIA Status: Chronic Comment: Improving, continue to hold thiazide, continue fluid restriction and IV NS, resume salt tablets (4) UTI (urinary tract infection) Status: Acute Qualifiers: Urinary tract infection type: acute cystitis Hematuria presence: without hematuria Qualified Code(s): N30.00 - Acute cystitis without hematuria (5) Parkinson disease Code(s): G20 - PARKINSON'S DISEASE Status: Chronic Comment: stable (6) Acute encephalopathy Code(s): G93.40 - ENCEPHALOPATHY, UNSPECIFIED Status: Resolved Comment: 2/2 hyponatremia - Plan AMS, leukocytosis, and e coli uti lead to Dx of sepsis -: cont iv antibx pending C&S -: selected home medss * .
[2018-10-09] MEDS ORDERED: Lisinopril 20 MG TAB PO SCH (10:30)
[2018-10-09] MEDS ORDERED: Amlodipine 10 MG TAB PO SCH (10:30)
[2018-10-09] MEDS ORDERED: OXcarbazepine 150 MG TAB PO SCH (10:30)
[2018-10-09] MEDS ORDERED: Gabapentin 100 MG CAP PO SCH (10:30)
[2018-10-09] MEDS: cefTRIAXone\\ROCEPHIN 1 GM in Sodium Chloride 0.9% 100 ML IVPB SCH (13:43)
[2018-10-09] MEDS: Gabapentin 100 MG CAP PO SCH ×2 (13:44→20:21)
[2018-10-09] MEDS: Acetaminophen 325 MG TAB PO PRN ×2 (15:43→20:21)
[2018-10-09] MEDS: Lisinopril 20 MG TAB PO SCH (20:20)
[2018-10-10] MEDS: Dextrose 5 %-0.45 % NaCl 1,000 ML IV SCH (08:24)
[2018-10-10 08:45] LABS: #Lymphocytes 0.8 thou/uL (1.20-3.40); #Monocytes 0.5 thou/uL (0.11-0.59); %Basophils 0.4 % (0.0-1.0); %Eosinophils 0.8 % (0.0-10.0); %Lymphocytes 17.7 % (21.0-51.0); %Monocytes 11.2 % (0.0-10.0); %Neutrophils 69.9 % (42.0-75.0); Hemoglobin 11.1 g/dL (14.0-18.0); Mean Corpuscular HGB CONC 32.3 g/dL (32.0-36.0); Mean Corpuscular Hemoglobin 27.9 pg (27.0-31.0); Mean Corpuscular Volume 86.4 fL (78.0-98.0); Mean Platelet Volume 7.6 fL (7.4-10.4); Platelet Count 154 thou/uL (130-400); RBC Distribution Width 14.6 % (11.5-14.5); Red Blood Cell (RBC) Count 3.97 mill/uL (4.70-6.10); White Blood Cell (WBC) Count 4.3 thou/uL (4.8-10.8)
[2018-10-10] MEDS: Amlodipine 10 MG TAB PO SCH (08:56)
[2018-10-10] MEDS: carBAMazepine 200 MG TAB PO SCH ×2 (08:57→22:13)
[2018-10-10] MEDS: OXcarbazepine 150 MG TAB PO SCH (08:57)
[2018-10-10] MEDS: Gabapentin 100 MG CAP PO SCH ×3 (08:57→22:14)
[2018-10-10] MEDS: Benztropine 1 MG TAB PO SCH ×2 (08:57→22:12)
[2018-10-10] MEDS: Lisinopril 20 MG TAB PO SCH ×2 (08:58→22:14)
[2018-10-10] MEDS: Carbidopa/Levodopa 10-100 mg Tablet PO SCH (08:58)
[2018-10-10 09:10] LABS: ALT (SGPT) 25 U/L (8-55); AST (SGOT) 40 U/L (5-34); Albumin 3.9 g/dL (3.4-4.8); Alkaline Phosphatase 83 U/L (40-150); Anion Gap 12 mmol/L (10-20); BUN (Urea Nitrogen) 7 mg/dL (8.4-25.7); Bilirubin, Total 0.3 mg/dL (0.2-1.2); Calc. Creatinine Clearance 97 mL/min (70-130); Calcium 9.4 mg/dL (7.8-10.44); Carbon Dioxide 24 mmol/L (23-31); Chloride 98 mmol/L (98-107); Estimated GFR-MDRD Greater than 90; Glucose 130 mg/dL (80-115); Potassium 3.6 mmol/L (3.5-5.1); Protein, Total 6.9 g/dL (5.8-8.1); Sodium 130 mmol/L (136-145)
--- NOTE | 2018-10-10 11:01 | PDOC.PN ---
- Subjective Encounter Start Date: 10/10/18 (f/u encephalopathy) Encounter Start Time: 10:59 Subjective: Pt c/o pain in back and right hand and feeling lousy in general. Denies -: any problems with appetite - Objective Resuscitation Status - Order Detail: 10/08/18 14:29 Resuscitation Status Routine Resuscitation Status: FULL: Full Resuscitation Vital Signs & Weight: Vital Signs (12 hours) Temp Pulse Resp BP BP Pulse Ox 10/10/18 08:58 146/89 H 10/10/18 08:56 75 146/89 H 10/10/18 08:00 98.2 F 75 20 146/89 H 97 10/10/18 07:58 98 10/10/18 04:00 98.4 F 73 18 160/100 H 95 10/10/18 00:36 157/90 H 10/10/18 00:00 97.8 F 85 19 171/103 H 95 Weight Weight 153 lb 9 oz I&O: 10/09/18 10/10/18 10/11/18 06:59 06:59 06:59 Intake Total 320 2550 Balance 320 2550 Result Diagrams: 10/10/18 08:07 10/10/18 08:06 EKG Reviewed by me: Yes (tele - sinus 70-80's) Phys Exam - Physical Examination Constitutional: NAD Respiratory: no wheezing, no rales, no rhonchi, clear to auscultation bilateral Cardiovascular: RRR, no significant murmur Gastrointestinal: soft, non-tender, no distention, positive bowel sounds Musculoskeletal: no edema, pulses present Deviation from normal: awake and oriented to person only Dx/Plan (1) Encephalopathy Code(s): G93.40 - ENCEPHALOPATHY, UNSPECIFIED Status: Acute (2) Schizophrenia Code(s): F20.9 - SCHIZOPHRENIA, UNSPECIFIED Status: Acute Qualifiers: Schizophrenia type: unspecified Qualified Code(s): F20.9 - Schizophrenia, unspecified (3) UTI (urinary tract infection) Status: Acute Qualifiers: Urinary tract infection type: acute cystitis Hematuria presence: without hematuria Qualified Code(s): N30.00 - Acute cystitis without hematuria (4) Chronic hepatitis Code(s): K73.9 - CHRONIC HEPATITIS, UNSPECIFIED Status: Chronic (5) HTN (hypertension) Code(s): I10 - ESSENTIAL (PRIMARY) HYPERTENSION Status: Chronic Qualifiers: Hypertension type: essential hypertension Qualified Code(s): I10 - Essential (primary) hypertension (6) Parkinson disease Code(s): G20 - PARKINSON'S DISEASE Status: Chronic (7) Hyponatremia Code(s): E87.1 - HYPO-OSMOLALITY AND HYPONATREMIA Status: Chronic - Plan * Reviewed home meds and corrected sinemet as it was underdosed here. Added back trazodone at night, cymbalta, salt tabs * hyponatremia stable * encepahlopathy secondary to toxic/metabolic - uncertain of patient's baseline and will monitor * UTI - ID&sensitivity available - continue rocephin while here and plan for d/ c with cefdinir * monitor another 24 hours and anticipate d/[facility] * add back home celebrex prn for pain * * PT consult for deconditioning * * dvt prophy - not tolerating scd's so will change to lovenox * gi prophy not indicated * code status full * * pt remains at high risk in current condition * anticipate he can be d/c back to nursing facility tomorrow - Carlos/RN to see if they can accept him. *
[2018-10-10] MEDS ORDERED: DULoxetine 60 MG CAP PO SCH (11:45)
[2018-10-10] MEDS: CeleCOXIB 100 MG CAP PO PRN (11:52)
[2018-10-10] MEDS: cefTRIAXone\\ROCEPHIN 1 GM in Sodium Chloride 0.9% 100 ML IVPB SCH (14:54)
[2018-10-10] MEDS: Carbidopa/Levodopa 25-250 mg Tablet PO SCH ×2 (14:57→22:13)
[2018-10-10] MEDS: Sodium Chloride 1 GM TAB PO SCH ×2 (14:57→22:15)
[2018-10-10] MEDS ORDERED: Enoxaparin Sodium 40 MG/0.4 ML SYRINGE SC SCH (21:00)
[2018-10-10] MEDS ORDERED: traZODone HCl 50 MG TAB PO SCH (21:00)
[2018-10-11] MEDS ORDERED: DULoxetine 60 MG CAP PO SCH (09:00)
[2018-10-11] MEDS: Amlodipine 10 MG TAB PO SCH (09:54)
[2018-10-11] MEDS: OXcarbazepine 150 MG TAB PO SCH (09:55)
[2018-10-11] MEDS: carBAMazepine 200 MG TAB PO SCH (09:55)
[2018-10-11] MEDS: Benztropine 1 MG TAB PO SCH (09:55)
[2018-10-11] MEDS: Gabapentin 100 MG CAP PO SCH ×2 (09:55→14:15)
[2018-10-11] MEDS: Carbidopa/Levodopa 25-250 mg Tablet PO SCH ×2 (09:55→14:15)
[2018-10-11] MEDS: Lisinopril 20 MG TAB PO SCH (09:55)
[2018-10-11] MEDS: Sodium Chloride 1 GM TAB PO SCH ×2 (09:56→14:15)
[2018-10-11] MEDS: CeleCOXIB 100 MG CAP PO PRN (09:57)
[2018-10-11 12:02] VITALS: TEMP 97.6
[2018-10-11] MEDS: cefTRIAXone\\ROCEPHIN 1 GM in Sodium Chloride 0.9% 100 ML IVPB SCH (12:43)
[2018-10-11 15:59] VITALS: BP 142/88
--- NOTE | 2018-10-12 06:45 | DIS ---
DATE OF ADMISSION: 10/09/2018 DATE OF DISCHARGE: 10/11/2018 DISCHARGE DISPOSITION: [facility] where the patient arrived from. CODE STATUS: Full. MEDICATIONS: Medications are reconciled at discharge. New medication, cefdinir 300 mg p.o. b.i.d. starting tomorrow for 3 days. Home medications to resume are all of them; 1. Norvasc 10 mg daily. 2. Benztropine 0.5 mg b.i.d. 3. Carbidopa/levodopa 25/250 p.o. t.i.d. 4. Celebrex 200 mg daily as needed. 5. Cymbalta 60 mg daily. 6. Colace 100 mg b.i.d. 7. Gabapentin 100 mg t.i.d. 8. Hydrocortisone ointment daily as needed. 9. Ibuprofen 200 mg tablets 3 tablets b.i.d. p.r.n. 10. Lisinopril 20 mg b.i.d. 11. Trileptal 150 mg daily. 12. Omeprazole 40 mg daily. 13. MiraLAX 17 g daily. 14. Sodium chloride tablets 1 p.o. t.i.d. 15. Carbamazepine 200 mg b.i.d. 16. Fluphenazine injection 25 mg IM every 4 weeks. 17. Guaifenesin cough syrup 10 mL every 6 hours as needed. 18. Trazodone 250 mg at night. Medications discontinued are none. FINAL DIAGNOSES: 1. Encephalopathy secondary to urinary tract infection. 2. Sepsis secondary to urinary tract infection. 3. Urinary tract infection. 4. Chronic hyponatremia, stable. 5. Hypertension. 6. Parkinson disease. 7. Leukopenia, mild. 8. Anemia, mild. HISTORY OF PRESENT ILLNESS: Mr. Cantu is a 67-year-old male who was transferred from the nursing facility due to altered mental status and concern for UTI. On evaluation in the emergency room, the patient was awake, but nonverbal, no history of present illness was obtainable. HOSPITAL COURSE: The patient was started on Rocephin IV and his urine culture grew E coli that is resistant to ampicillin, ampicillin sulbactam, Bactrim, and indeterminate to cefoxitin. He was continued on Rocephin throughout his hospitalization with the last dose on the day of discharge. His mental status has improved daily, with a significant improvement noticed from yesterday to today. Today, he was able to walk with the assistance of a walker and physical therapy a short distance. The patient was continued on his usual medications added back as his mental status improved, and at discharge, he is on all of his normal medications. There are no changes to his usual medications. The patient overall states he feels uncomfortable and is more comfortable back at the nursing facility. He does desire to return there, he is hemodynamically stable and meets discharge criteria. The patient's chronic hyponatremia has been stable here. PHYSICAL EXAMINATION: On day of discharge, VITAL SIGNS: Blood pressure 153/89, pulse 72, respirations 16, temperature 98.8 , sats 97% on room air. GENERAL: He is awake, alert, responding, answering questions appropriately, does pause and at times cannot remember things. LUNGS: Clear to auscultation bilateral. HEART: Normal S1 and S2. Regular rate and rhythm. No audible murmurs. ABDOMEN: Soft with present bowel sounds. Nontender and nondistended. EXTREMITIES: No clubbing, cyanosis, or edema. [place]A FINDINGS AND TEST RESULTS: CBC; 4.3, 11.1, 34.3, 154 with 69% neutrophils, 17% lymphocytes. Chemistry; 130, 3.6, 98, 24, 7, 0.71, 130. LFTs; AST 40, ALT 25, alkaline phosphatase 83, total protein 6.9, albumin 3.9. Tox screen on admission negative. Urine drug screen negative salicylates, acetaminophen, and plasma alcohol. Urinalysis on admission, spec gravity 1.010, positive nitrite, moderate leuk esterase, greater than 50 white blood cells. Urine culture shows E coli with sensitivities as noted above. Chest x-ray on admission, chronic type findings, stable, no active cardiopulmonary abnormalities. Brain CT on 08 of October, no acute intracranial process. DIET: Regular. ACTIVITY: As tolerated. I do think, the patient will continue to benefit working with physical therapy to get stronger. Followup is with the long-term physician, do recommend a repeat CBC in 3 days to check the white blood cells. I reviewed with patient this hospitalization, the transfer back to [facility]. With any concerns, he should be re-evaluated. Code status is full. Total time for discharge, 35 minutes. Job ID: [id number] [facility]
== END 2018-10-11 19:48 | DRG 871 ==
LOC: ERS 11:43 → ERHOLD 15:22 → 2SE 10-09 01:05 → OBSVTOIN 10-09 11:10
PROVIDERS: ADMIT Internal Medicine; ATTEND Internal Medicine
DX: A41.51 Sepsis due to Escherichia coli [E. coli] (principal); G93.41 Metabolic encephalopathy; E87.1 Hypo-osmolality and hyponatremia; N30.00 Acute cystitis without hematuria; I10 Essential (primary) hypertension; G20 Parkinson's disease; F43.10 Post-traumatic stress disorder, unspecified; B18.2 Chronic viral hepatitis C; F02.80 Dementia in other diseases classified elsewhere, unspecified severity, without behavioral disturbance, psychotic disturbance, mood disturbance, and anxiety; F20.9 Schizophrenia, unspecified; Z16.24 Resistance to multiple antibiotics; F32.9 Major depressive disorder, single episode, unspecified; Z88.1 Allergy status to other antibiotic agents
CPT/HCPCS: 36415; 70450; 71045; 80048; 80053; 80306; 80307; 81003; 81015; 82140; 82550; 84443; 84484; 85025; 87077; 87086; 87186; 93005; 94760; 96361; 96365; 96375; J0696; J1650; J2060; J7050

== ENCOUNTER 2020-08-28 14:35 | Inpatient (IN) | payer MEDICARE, MEDICAID ==
[2020-08-28 15:32] LABS: Hemoglobin 6.6 g/dL (14.0-18.0); Mean Corpuscular HGB CONC 32.9 g/dL (32.0-36.0); Mean Corpuscular Hemoglobin 27.8 pg (27.0-31.0); Mean Corpuscular Volume 84.3 fL (78.0-98.0); Mean Platelet Volume 8.4 fL (7.4-10.4); Platelet Count 158 thou/uL (130-400); RBC Distribution Width 15.6 % (11.5-14.5); Red Blood Cell (RBC) Count 2.37 mill/uL (4.70-6.10); White Blood Cell (WBC) Count 1.5 thou/uL (4.8-10.8)
--- NOTE | 2020-08-28 15:33 | CT ---
CT HEAD WITHOUT IV CONTRAST COMPARISON: 10/08/2018 HISTORY: Altered mental status TECHNIQUE: Axial CT imaging at 5 mm intervals from vertex through skull base without contrast FINDINGS: There is decreased attenuation in the periventricular white matter which is nonspecific but likely re flective of chronic small vessel ischemic changes and not significantly progressed from the prior study. Areas of diminished attenuation are also seen in the preeti bilaterally and also noted on prior exam likely attributable to chronic small vessel ischemic changes as well. There is mild cerebral volume loss. The ventricular system is normal in size, shape, and position for the degree of sulcal atrophy. There is no evidence of an acute cortical infarction, hemorrhage, mass effect, or midline shift. There is area of diminished attenuation in the right external auditory canal likely due to large amou nt of cerumen. Visualized paranasal sinuses are clear. Osseous structures appear intact. IMPRESSION: 1. No acute intracranial abnormality demonstrated. 2. Chronic small vessel ischemic changes and cerebral volume loss. 3. CT head is overall stable when compared to prior exam.
[2020-08-28 15:36] LABS: INR-International Normal Ratio 1.1; PTT 39.3 sec (22.9-36.1); Prothrombin Time 14.5 sec (12.0-14.7)
--- NOTE | 2020-08-28 15:49 | RAD ---
PORTABLE CHEST: HISTORY: Dyspnea. COVID positive. COMPARISON: Comparison is made to chest 10/08/2018 and a CTA chest 03/09/2018. 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 There is increased density in the left lung base at the site of this previously noted diaphragmatic h ernia. Lungs otherwise appear clear. No focal infiltrate. No vascular congestion or edema. Heart size wit hin normal range and stable. Scattered granuloma appears stable. IMPRESSION: No acute process. POS: [facility]
[2020-08-28 15:56] LABS: Anisocytosis SLIGHT = 6-15 cells (100X) (0-5/hpf); Band 5 % (5-11); Eosinophils 1 % (0-10); Hypochromia SLIGHT = 6-15 cells (100X) (0-5/hpf); Lymphocytes 48 % (21-51); MDiff Complete? YES; Monocytes 14 % (0-10); Neutrophil 31 % (42-75); Ovalocytes SLIGHT = 2-5 cells (100X) (0-1/hpf); Platelet Morphology Comment Appears Adequate; Polychromasia SLIGHT = 2-3 cells (100X) (0-2/hpf); Reactive Lymphocytes 1 % (0-10); Reflex for Review?? YES; Spherocytes SLIGHT = 1-5 cells (100X) (None Seen)
[2020-08-28 15:57] LABS: ALT (SGPT) Less than 7 U/L (8-55); AST (SGOT) 13 U/L (5-34); Albumin 3.5 g/dL (3.4-4.8); Alkaline Phosphatase 79 U/L (40-110); Anion Gap 12 mmol/L (10-20); BUN (Urea Nitrogen) 17 mg/dL (8.4-25.7); Bilirubin, Total 0.2 mg/dL (0.2-1.2); Calc. Creatinine Clearance 0 mL/min (70-130); Calcium 7.9 mg/dL (7.8-10.44); Carbon Dioxide 25 mmol/L (23-31); Chloride 96 mmol/L (98-107); Globulin 2.2 g/dL (2.4-3.5); Glucose 88 mg/dL (83-110); Potassium 4.1 mmol/L (3.5-5.1); Protein, Total 5.7 g/dL (5.8-8.1); Sodium 129 mmol/L (136-145)
[2020-08-28 16:39] LABS: Bilirubin Negative (Negative); Blood, Urine Negative (Negative); Clarity Clear (Clear); Glucose, Urine (Dipstick) Normal (Negative); Ketone, Urine Negative (Negative); Leukocyte Negative Leu/uL (Negative); Nitrite Negative (Negative); Protein, Urine (Dipstick) Negative (Neg-Trace); Specific Gravity, Urine 1.018 (1.002-1.036); Urobilinogen 3 mg/dL (Less than 2)
[2020-08-28] MEDS ORDERED: Dexamethasone 4 mg/ml Vial ONE (17:56)
[2020-08-28] MEDS ORDERED: Azithromycin 500 MG VIAL ONE (17:56)
[2020-08-28 19:43] VITALS: BMI 24.3
--- NOTE | 2020-08-28 20:04 | PDOC.HHP ---
Hospitalist HPI - History of Present Illness Altered mental status History of Present Illness: Patient is a 69 year old male w/ PMH GERD, constipation, HTN, parkinsons disease, mood disorder, hyponatremia, HCV who presents to the hospital from [facility] for cough, body aches, altered mental status, hypoxia. He was diagnosed with COVID appx 1 week ago. He reports chills, malaise. Vitals with borderline hypotension and tachypnea, and reported to ED as tachycardic and febrile prevoiusly. Labs significant for WBC 1.5, hgb 6.6. Na 129. CT head stable from previous studies, CXR with no acute processes but ED read as with covid-consistent process. During exam, patient had a melanotic stool shown to me buy nursing. Brigida unaware he was having melena. No history of GIB he knows of, but not reliable historian currently. Patient given dexamethasone, azithromycin, transfused 1u pRBC and admitted for further workup. Of note, old medication list from last admission contains NSAIDs, and patient has history of HCV. Hospitalist ROS - Review of Systems Constitutional: reports: fever, chills, sweats, weakness, malaise Eyes: denies: pain, vision change, conjunctivae inflammation, eyelid inflammation, redness, other ENT: denies: ear pain, ear discharge, nose pain, nose discharge, nose c ongestion, mouth pain, mouth swelling, throat pain, throat swelling, other Respiratory: reports: cough, shortness of breath, sputum. denies: dry, hemoptysis, SOB with excertion, pleuritic pain, wheezing, other Cardiovascular: denies: chest pain, palpitations, orthopnea, paroxysmal noc. dyspnea, edema, light headedness, other Gastrointestinal: reports: diarrhea, melena. denies: nausea, vomiting, abdominal pain, constipation, hematochezia, other Genitourinary: denies: dysuria, frequency, incontinence, hematuria, retention, other Musculoskeletal: denies: neck pain, shoulder pain, arm pain, back pain, hand pain, leg pain, foot pain, other Skin: denies: rash, lesions, shreya, bruising, other Neurological: denies: weakness, numbness, incoordination, change in speech, confusion, seizures, other All other systems reviewed; all pertinent +/- noted in HPI/Subj - Medication Medications: reviewed, see admission documents for medication list Hospitalist History - Past Medical History Other Medical History: GERD, constipation, HTN, parkinsons disease, mood disorder, hyponatremia, HCV - Past Surgical History Past Surgical History: reports: no pertinent history - Family History Family History: reports: no pertinent history - Social History Smoking Status: Never smoker Alcohol: reports: None Drugs: reports: none - Exam General Appearance: NAD, awake alert Eye: PERRL, anicteric sclera ENT: normocephalic atraumatic, no oropharyngeal lesions, moist mucosa Neck: supple, symmetric, no JVD, no thyromegaly, no lymphadenopathy, no carotid bruit Heart: RRR, no murmur, no gallops, no rubs, normal peripheral pulses Respiratory: CTAB, no wheezes, no rales, no ronchi, normal chest expansion, no tachypnea, normal percussion Gastrointestinal: soft, non-tender, non-distended, normal bowel sounds, no palpable masses, no hepatomegaly, no splenomegaly, no bruit Extremities: no cyanosis, no clubbing, no edema Skin: normal turgor, no lesions, no rashes Neurological: cranial nerve grossly intact, normal sensation to touch, no weakness, no focal deficits, no new deficit Musculoskeletal: normal tone, normal strength, no muscle wasting Psychiatric: normal affect, normal behavior, A&O x 3 Hospitalist Results - Labs Result Diagrams: 08/28/20 15:10 08/28/20 15:10 Lab results: WBC 1.5 thou/uL (4.8-10.8) L 08/28/20 15:10 Hgb 6.6 g/dL (14.0-18.0) L 08/28/20 15:10 Hct 20.0 % (42.0-52.0) L 08/28/20 15:10 MCV 84.3 fL (78.0-98.0) 08/28/20 15:10 Plt Count 158 thou/uL (130-400) 08/28/20 15:10 Band Neuts % (Manual) 5 % (5-11) 08/28/20 15:10 Sodium 129 mmol/L (136-145) L 08/28/20 15:10 Potassium 4.1 mmol/L (3.5-5.1) 08/28/20 15:10 Chloride 96 mmol/L (98-107) L 08/28/20 15:10 Carbon Dioxide 25 mmol/L (23-31) 08/28/20 15:10 BUN 17 mg/dL (8.4-25.7) 08/28/20 15:10 Creatinine 0.83 mg/dL (0.7-1.3) 08/28/20 15:10 Glucose 88 mg/dL (83-110) 08/28/20 15:10 Lactic Acid 1.5 mmol/L (0.5-2.2) 08/28/20 15:10 Calcium 7.9 mg/dL (7.8-10.44) 08/28/20 15:10 Total Bilirubin 0.2 mg/dL (0.2-1.2) 08/28/20 15:10 AST 13 U/L (5-34) 08/28/20 15:10 ALT Less than 7 U/L (8-55) L 08/28/20 15:10 Alkaline Phosphatase 79 U/L (40-110) 08/28/20 15:10 Troponin I Less than 0.010 ng/mL (< 0.028) 08/28/20 15:10 B-Natriuretic Peptide 44.4 pg/mL (0-100) 08/28/20 15:10 Serum Total Protein 5.7 g/dL (5.8-8.1) L 08/28/20 15:10 Albumin 3.5 g/dL (3.4-4.8) 08/28/20 15:10 Urine Ketones Negative mg/dL (Negative) 08/28/20 16:23 Urine Blood Negative (Negative) 08/28/20 16:23 Urine Nitrite Negative (Negative) 08/28/20 16:23 Ur Leukocyte Esterase Negative Chi/uL (Negative) 08/28/20 16:23 Additional comment: VITAL SIGNS FriAug 28, 2020 17:45 CARL Wang, Eli BP: 106/69 Pulse: 75 Resp: 20 Temp: 98.4 (Oral) Pain: 0 O2 sat: 95 on (Room Air) Time: 08/28/2020 17:45. CT head impression IMPRESSION: 1. No acute intracranial abnormality demonstrated. 2. Chronic small vessel ischemic changes and cerebral volume loss. 3. CT head is overall stable when compared to prior exam. XR Chest 1 View Portable Observe DT: FriAug 28, 2020 14:54 CXRP PORTABLE CHEST: A diaphragmatic hernia into the left chest has been previously noted and is well documented and is we ll seen on the CT. There is increased density in the left lung base at the site of this previously noted diaphragmatic h ernia. Lungs otherwise appear clear. No focal infiltrate. No vascular congestion or edema. Heart size wit hin normal range and stable. Scattered granuloma appears stable. IMPRESSION: No acute process. Hospitalist H&P A/P - Plan Plan: Patient is a 69 year old male w/ PMH GERD, constipation, HTN, parkinsons disease, mood disorder, hyponatremia, HCV who presents to the hospital from [facility] for cough, body aches, altered mental status, hypoxia. # COVID 19 pneumonia w/ delirium/metaboilic encephalopathy # leukopenia Patient was diagnosed with COVID appx 1 week ago. ED documents report tachypnea, and tachycardic and febrile prevoiusly. Labs significant for WBC 1.5, hgb 6.6. Na 129. CT head stable from previous studies, CXR ED read with covid- consistent process. - admit to COVID floor - continue dexamethasone, azithromycin, ceftriaxone - monitor respiratory status closely # upper GI bleed # normocytic anemia # HCV infection During exam, patient had a melanotic stool shown to me by nursing. Brigida akhtar he was having melena. No history of GIB he knows of, but not reliable historian currently. Patient given dexamethasone, azithromycin, transfused 1u pRBC and admitted for further workup. Of note, old medication list from last admission contains NSAIDs, and patient has history of HCV. - transfuse 1u pRBC - trend CBC - consult GI - IV ppi - octreotide gtt - NSAIDs should be discontinued at discharge # AMS - suspect due to covid, check ammonia level as well. UA clear # history of recent UTI - urine negative, but previously reported UTI should be covered by ceftriaxone for COVID/pneumonia # hyponatremia - likely related to cirrhotic physiology DVT ppx - scd GI ppx - PPI
[2020-08-28] MEDS ORDERED: Sodium Chloride 0.9% 1,000 ML IV SCH (20:15)
[2020-08-28] MEDS ORDERED: Acetaminophen 325 MG TAB PO PRN (20:53)
[2020-08-28] MEDS ORDERED: Ondansetron PF 4 MG/2 ML Vial IVP PRN (20:53)
[2020-08-28] MEDS ORDERED: hydrALAZINE 20 MG/ML VIAL SLOW IVP PRN (20:53)
[2020-08-28] MEDS ORDERED: Labetalol HCl 100 MG/20 ML VIAL SLOW IVP PRN (20:53)
[2020-08-28] MEDS ORDERED: Morphine 2 MG/ML VIAL SLOW IVP PRN (20:53)
[2020-08-28] MEDS ORDERED: Promethazine HCl 12.5 MG in Sodium Chloride 0.9% 50 ML IVPB PRN (20:53)
[2020-08-28] MEDS ORDERED: cloNIDine 0.1 MG TAB PO PRN (20:53)
[2020-08-28] MEDS ORDERED: Guaifenesin DM 100-10/5 ML UDCUP PO PRN (20:53)
[2020-08-28] MEDS ORDERED: Electrolyte Replacement Protocol 1 EACH FS PRN (21:00)
[2020-08-28] MEDS: Gabapentin 100 MG CAP PO SCH (21:40)
[2020-08-28] MEDS: Lisinopril 20 MG TAB PO SCH (21:42)
[2020-08-28] MEDS: Dexamethasone 4 mg/ml Vial SLOW IVP SCH (21:42)
[2020-08-28] MEDS: Carbidopa/Levodopa 25-250 mg Tablet PO SCH (21:42)
[2020-08-28] MEDS: Pantoprazole 40 MG VIAL IVP SCH (21:43)
[2020-08-28] MEDS: cefTRIAXone\\ROCEPHIN 1 GM in Sodium Chloride 0.9% 100 ML IVPB SCH (21:43)
[2020-08-28] MEDS: carBAMazepine 200 MG TAB PO SCH (21:43)
[2020-08-28] MEDS: HYDROcodone/Acetaminophen 5/325 mg Tablet PO PRN (23:10)
[2020-08-29] MEDS ORDERED: Octreotide Acetate 1,250 MCG in Sodium Chloride 0.9% 250 ML 250 ML IVPB SCH (02:30)
[2020-08-29] MEDS: Octreotide Acetate 1,250 MCG in Sodium Chloride 0.9% 250 ML 250 ML IVPB SCH (03:30)
[2020-08-29 04:22] LABS: White Blood Cell (WBC) Count 0.7 thou/uL (4.8-10.8)
[2020-08-29 04:37] LABS: Anion Gap 11 mmol/L (10-20); BUN (Urea Nitrogen) 13 mg/dL (8.4-25.7); Calc. Creatinine Clearance 107 mL/min (70-130); Calcium 7.8 mg/dL (7.8-10.44); Carbon Dioxide 22 mmol/L (23-31); Chloride 98 mmol/L (98-107); Glucose 143 mg/dL (83-110); Magnesium 1.8 mg/dL (1.6-2.6); Potassium 4.4 mmol/L (3.5-5.1); Sodium 127 mmol/L (136-145)
[2020-08-29 04:52] LABS: Hemoglobin 7.3 g/dL (14.0-18.0); Lymphocytes 40 % (21-51); MDiff Complete? YES; Mean Corpuscular HGB CONC 33.6 g/dL (32.0-36.0); Mean Corpuscular Hemoglobin 29.2 pg (27.0-31.0); Mean Corpuscular Volume 87.1 fL (78.0-98.0); Mean Platelet Volume 8.5 fL (7.4-10.4); Neutrophil 60 % (42-75); Platelet Count 138 thou/uL (130-400); Platelet Morphology Comment Appears Adequate; RBC Distribution Width 15.6 % (11.5-14.5); Red Blood Cell (RBC) Count 2.48 mill/uL (4.70-6.10)
[2020-08-29] MEDS ORDERED: Magnesium 2 GM/50 ML 2 GM in Premix Bag 1 BAG IVPB SCH (06:30)
[2020-08-29] MEDS ORDERED: FLU VACC QS2020-21(65YR UP)/PF 240 MCG/0.7 ML SYRINGE IM ONE (09:00)
[2020-08-29] MEDS: carBAMazepine 200 MG TAB PO SCH ×2 (09:20→20:59)
[2020-08-29] MEDS: DULoxetine 60 MG CAP PO SCH (09:20)
[2020-08-29] MEDS: Benztropine 1 MG TAB PO SCH ×2 (09:20→20:55)
[2020-08-29] MEDS: Lisinopril 20 MG TAB PO SCH ×2 (09:21→20:59)
[2020-08-29] MEDS: Gabapentin 100 MG CAP PO SCH ×3 (09:21→20:58)
[2020-08-29] MEDS: OXcarbazepine 150 MG TAB PO SCH (09:21)
[2020-08-29] MEDS: Pantoprazole 40 MG VIAL IVP SCH ×2 (09:22→20:55)
[2020-08-29] MEDS: Carbidopa/Levodopa 25-250 mg Tablet PO SCH ×3 (09:22→20:59)
[2020-08-29] MEDS: HYDROcodone/Acetaminophen 5/325 mg Tablet PO PRN ×2 (13:13→17:12)
[2020-08-29 16:01] LABS: Hemoglobin 7.3 g/dL (14.0-18.0); Mean Corpuscular HGB CONC 33.3 g/dL (32.0-36.0); Mean Corpuscular Hemoglobin 28.7 pg (27.0-31.0); Mean Corpuscular Volume 86.2 fL (78.0-98.0); Mean Platelet Volume 8.2 fL (7.4-10.4); Platelet Count 156 thou/uL (130-400); RBC Distribution Width 15.7 % (11.5-14.5); Red Blood Cell (RBC) Count 2.55 mill/uL (4.70-6.10); White Blood Cell (WBC) Count 3.1 thou/uL (4.8-10.8)
[2020-08-29] MEDS ORDERED: Azithromycin 500 MG in Syringe 0 ML IVPB SCH (17:00)
[2020-08-29] MEDS: Azithromycin 500 MG in Sodium Chloride 0.9% 250 ML 250 ML IVPB SCH (17:12)
--- NOTE | 2020-08-29 17:20 | PDOC.HOSPP ---
- Subjective Encounter Date: 08/29/20 Subjective: Confused. - Objective Vital Signs & Weight: Vital Signs (12 hours) Temp Pulse Resp BP BP Pulse Ox 08/29/20 16:05 97.9 F 90 20 144/71 H 94 L 08/29/20 12:00 98.3 F 87 20 135/71 93 L 08/29/20 08:00 98.0 F 85 20 135/74 95 Weight Weight 169 lb 8 oz Result Diagrams: 08/29/20 15:51 08/29/20 04:02 Hospitalist ROS - Medication Medications: Active Medications Generic Name Dose Route Start Last Admin Trade Name Freq PRN Reason Stop Dose Admin Hydrocodone Bitart/Acetaminophen 1 tab 08/28/20 20:53 08/29/20 13:13 Hydrocodone/Acetaminophen 5/325 Mg Tablet PO 1 tab Q4H PRN Administration Moderate Pain (4-6) Benztropine Mesylate 0.5 mg 08/29/20 09:00 08/29/20 09:20 Benztropine 1 Mg Tab PO 0.5 mg BID ELEAZAR Administration Carbamazepine 200 mg 08/28/20 21:00 08/29/20 09:20 Carbamazepine 200 Mg Tab PO 200 mg BID ELEAZAR Administration Carbidopa/Levodopa 1 tab 08/29/20 09:00 08/29/20 15:32 Carbidopa/Levodopa 25-250 Mg Tablet PO 1 tab TID ELEAZAR Administration Dexamethasone 6 mg 08/28/20 21:30 08/28/20 21:42 Dexamethasone 4 Mg/Ml Vial SLOW IVP 6 mg Q24H ELEAZAR Administration Duloxetine HCl 60 mg 08/29/20 09:00 08/29/20 09:20 Duloxetine 60 Mg Cap PO 60 mg DAILY ELEAZAR Administration Gabapentin 100 mg 08/28/20 21:00 08/29/20 15:32 Gabapentin 100 Mg Cap PO 100 mg TID ELEAZAR Administration Ceftriaxone Sodium 1 gm/ 100 mls @ 200 mls/hr 08/28/20 22:00 08/28/20 21:43 Sodium Chloride IVPB 100 mls 2200 ELEAZAR Administration Octreotide Acetate 1,250 mcg/ 251.25 mls @ 10.05 mls/hr 08/29/20 02:30 08/29/20 03:30 Sodium Chloride IVPB 251.25 mls INF ELEAZAR Administration 50 MCG/HR Lisinopril 20 mg 08/28/20 21:00 08/29/20 09:21 Lisinopril 20 Mg Tab PO 20 mg BID ELEAZAR Administration Oxcarbazepine 150 mg 08/29/20 09:00 08/29/20 09:21 Oxcarbazepine 150 Mg Tab PO 150 mg DAILY ELEAZAR Administration Pantoprazole Sodium 40 mg 08/28/20 21:00 08/29/20 09:22 Pantoprazole 40 Mg Vial IVP 40 mg Q12HR ELEAZAR Administration Sodium Chloride 10 ml 08/29/20 09:00 08/29/20 09:23 Flush - Normal Saline 10 Ml Syringe IVF 10 ml Q12HR ELEAZAR Administration - Exam General Appearance: awake alert Neck: supple Heart: RRR Respiratory: normal chest expansion, no tachypnea Gastrointestinal: soft Extremities: no cyanosis Hosp A/P (1) COVID-19 Code(s): U07.1 - COVID-19 Status: Acute (2) GI bleed Code(s): K92.2 - GASTROINTESTINAL HEMORRHAGE, UNSPECIFIED Status: Acute (3) Anemia due to acute blood loss Code(s): D62 - ACUTE POSTHEMORRHAGIC ANEMIA Status: Acute (4) Metabolic encephalopathy Code(s): G93.41 - METABOLIC ENCEPHALOPATHY Status: Acute (5) SIADH (syndrome of inappropriate ADH production) Status: Acute (6) HTN (hypertension) Code(s): I10 - ESSENTIAL (PRIMARY) HYPERTENSION Status: Chronic Qualifiers: Hypertension type: essential hypertension Qualified Code(s): I10 - Essential (primary) hypertension (7) Hyponatremia Code(s): E87.1 - HYPO-OSMOLALITY AND HYPONATREMIA Status: Chronic (8) Parkinson disease Code(s): G20 - PARKINSON'S DISEASE Status: Chronic - Plan The patient is saturating well on room air and thus small COVID-19 specific therapy will be administered this time. Anemia due to GI bleeding is present. Continue monitor hemoglobin and transfuse for level less than 7. GI consulted. Sodium level is low due to SIADH. This appears to be chronic, however, in light of the patient's confusion, we will manage it with salt tablets and fluid restriction.
[2020-08-29] MEDS: cefTRIAXone\\ROCEPHIN 1 GM in Sodium Chloride 0.9% 100 ML IVPB SCH (20:55)
[2020-08-29] MEDS: traZODone HCl 50 MG TAB PO SCH (20:58)
[2020-08-29] MEDS: Dexamethasone 4 mg/ml Vial SLOW IVP SCH (20:59)
[2020-08-29] MEDS ORDERED: traZODone HCl 50 MG TAB PO SCH (21:00)
--- NOTE | 2020-08-30 01:59 | CON ---
DATE OF CONSULTATION: 08/29/2020 REASON FOR CONSULT: "Melena." HISTORY OF PRESENT ILLNESS: Mr. Cantu is a 69-year-old, who was admitted from the ER last night on the . He lives in a chcf at [place] related to Parkinson's and mood disorder. He has a history of reflux, Narvaez esophagus, chronic constipation, hypertension, and remote history of hepatitis C. He reports he had hepatitis B in the past, but "beat it." He was diagnosed with COVID about a week ago and had some chills and malaise, some borderline hypotension, tachycardia, but was brought to the ER, he was not tachycardic, he had O2 saturation of 95%, pulse 75, blood pressure 106/69. Main complaints are generalized malaise and body aches. In the emergency room, he was noted to have a black stool. He was admitted and placed on dexamethasone, erythromycin, octreotide, and Protonix. He was given 1 unit of blood and his hemoglobin came up from 6.6 to 7.3 for this morning and it was stable at 7.3 at 1500 hours today. His baseline hemoglobin in September 2018 was 11.1. He has not had a hemoglobin in the meantime. The nurse notes he has had three or four stools that are dark, but they are not black, they are not tarry, and they do not sound like slight blood. His BUN and creatinine are 13 and 0.69. He has not had any overt hematochezia. Presently, his main complaint is just feeling achy all over. PAST MEDICAL HISTORY: Parkinson's, reflux, hypertension, constipation, mood disorder, history of previous hyponatremia, possible hepatitis C, and previous hepatitis B. PAST SURGICAL HISTORY: EGD and colonoscopy in 06/[address] Berto Jarvis. He had diverticulosis. No polyps. He does have Narvaez's with no dysplasia. Colon cancer screen was discontinued at that time secondary to age. ALLERGIES: TETRACYCLINE. SOCIAL HISTORY: Lives in a chcf. Presently, he does not drink now, does not use drugs now, does not smoke; he did in the past, all three of those. FAMILY HISTORY: The patient denies any history of liver disease. MEDICATIONS: In the chcf, 1. Trazodone. 2. Tramadol. 3. Prolixin. 4. Carbamazepine. 5. Tamsulosin. 6. MiraLAX. 7. Trileptal. 8. Cozaar. 9. Hydrochlorothiazide. 10. Gabapentin. 11. Duloxetine. 12. Celebrex. 13. Carbidopa levodopa. 14. Bisacodyl. 15. Aspirin. 16. Amlodipine. Present medications here, 1. Tylenol. 2. Azithromycin. 3. Cogentin. 4. Tegretol. 5. Sinemet. 6. Rocephin. 7. Clonidine. 8. Decadron. 9. Cymbalta. 10. Neurontin. 11. Apresoline. 12. [place]. 13. . 14. Lisinopril. 15. Morphine. 16. Octreotide drip. 17. Zofran. 18. Trileptal. 19. Protonix 40 IV q.12. 20. Phenergan p.r.n. 21. Desyrel. PHYSICAL EXAMINATION: GENERAL: The patient is resting comfortably in bed. He is alert and oriented to person, place, and time. He has a very poor memory for medications or past medical issues. He is in no distress. He has tattoos all over his chest. VITAL SIGNS: Temperature is 97.9, pulse 90, O2 saturation 93% to 94% with respirations of 20, and blood pressure 144/71. NECK: Supple without nodes. He has no JVD. There is no supraclavicular adenopathy. He has no temporal wasting. LUNGS: Clear. HEART: Regular without clicks or murmurs. ABDOMEN: Soft and nontender. There is no palpable hepatosplenomegaly. There is no shifting dullness or fluid wave. EXTREMITIES: No clubbing, cyanosis, or edema. SKIN: Without any spider angiomata or palmar erythema. LABORATORY STUDIES: Sodium 137, potassium 4.4, BUN and creatinine are 13 and 0.69, glucose is 143. History of low iron of 18 in 2018. His bilirubin 0.2, AST 13, ALT is less than 7, alkaline phosphatase 79, ammonia was 30. Today, protein 5.7, albumin 3.5, BNP 44. Lipase less than 4 in 2018. Urine negative. Platelets are 156, hemoglobin 7.3 at 1500, white count 3.1. On admission, he has white count of 1.5, hemoglobin of 6.6, and platelet count 158, MCV was 86. ASSESSMENT: 1. Although the patient has had a history of melena, it seems occult stool study was negative and his hemoglobin has been stable after presenting with a hemoglobin of 6. He has had a history of iron deficiency anemia in the past, since then had upper and lower endoscopy in 2018. Presently, he has been transfused 1 unit of blood and is stable. I doubt that he has cirrhosis. He has mildly low platelets and low white count, but platelet count of over 100,000 is usually associated with lack of varices. He has not had any history to suggest peritoneal hemorrhage. There is some concern he is on NSAIDs in the outpatient setting. 2. COVID infection. 3. Prior questionable history of hepatitis B and C with normal LFTs at this time. Last CT scan of abdomen and pelvis in 02/2018 showed gallstones, hiatal hernia. No overt cirrhosis was commented on. RECOMMENDATIONS: 1. I will continue PPI q.2 hours, let him to have liquid diet and observe him. He is not acutely bleeding. I think if he does not have any further bleeding and stable hemoglobin, we can probably stop the octreotide. 2. In an outpatient setting, we can consider endoscopy and if he has acute bleeding, then we can consider re-evaluate for possible endoscopy here. 3. Would consider giving him some IV iron. 4. Again in the outpatient setting, we could further evaluate history of hepatitis C and imaging of his liver. I would not do that presently as he has recent COVID infection and is not pertinent to the issues at hand presently. Job ID: [id number]
[2020-08-30] MEDS: Octreotide Acetate 1,250 MCG in Sodium Chloride 0.9% 250 ML 250 ML IVPB SCH (05:28)
[2020-08-30 05:30] LABS: #Lymphocytes 0.5 thou/uL (1.20-3.40); #Monocytes 0.3 thou/uL (0.11-0.59); #Neutrophils 1.4 thou/uL (1.40-6.50); %Basophils 0.3 % (0.0-1.0); %Eosinophils 0.7 % (0.0-10.0); %Lymphocytes 21.8 % (21.0-51.0); %Monocytes 12.2 % (0.0-10.0); %Neutrophils 65.1 % (42.0-75.0); Hemoglobin 7.5 g/dL (14.0-18.0); Mean Corpuscular HGB CONC 32.3 g/dL (32.0-36.0); Mean Corpuscular Volume 86.6 fL (78.0-98.0); Mean Platelet Volume 8.5 fL (7.4-10.4); Platelet Count 171 thou/uL (130-400); RBC Distribution Width 15.9 % (11.5-14.5); Red Blood Cell (RBC) Count 2.69 mill/uL (4.70-6.10); White Blood Cell (WBC) Count 2.2 thou/uL (4.8-10.8)
[2020-08-30 06:34] LABS: Anion Gap 14 mmol/L (10-20); BUN (Urea Nitrogen) 14 mg/dL (8.4-25.7); Calc. Creatinine Clearance 87 mL/min (70-130); Calcium 7.9 mg/dL (7.8-10.44); Carbon Dioxide 22 mmol/L (23-31); Chloride 99 mmol/L (98-107); Glucose 157 mg/dL (83-110); Magnesium 1.9 mg/dL (1.6-2.6); Potassium 4.9 mmol/L (3.5-5.1); Sodium 130 mmol/L (136-145)
[2020-08-30] MEDS ORDERED: Magnesium 2 GM/50 ML 2 GM in Premix Bag 1 BAG IVPB SCH (07:15)
[2020-08-30] MEDS: Benztropine 1 MG TAB PO SCH ×2 (08:04→21:00)
[2020-08-30] MEDS: DULoxetine 60 MG CAP PO SCH (08:05)
[2020-08-30] MEDS: Lisinopril 20 MG TAB PO SCH ×2 (08:05→21:01)
[2020-08-30] MEDS: carBAMazepine 200 MG TAB PO SCH ×2 (08:05→21:00)
[2020-08-30] MEDS: Gabapentin 100 MG CAP PO SCH ×3 (08:05→21:00)
[2020-08-30] MEDS: OXcarbazepine 150 MG TAB PO SCH (08:06)
[2020-08-30] MEDS: Pantoprazole 40 MG VIAL IVP SCH ×2 (08:06→21:02)
[2020-08-30] MEDS: Carbidopa/Levodopa 25-250 mg Tablet PO SCH ×3 (08:06→21:02)
[2020-08-30] MEDS: Sodium Chloride 1 GM TAB PO SCH (08:06)
[2020-08-30] MEDS: HYDROcodone/Acetaminophen 5/325 mg Tablet PO PRN ×2 (08:26→18:16)
--- NOTE | 2020-08-30 15:35 | PDOC.HOSPP ---
- Subjective Encounter Date: 08/30/20 Subjective: Confused. - Objective Vital Signs & Weight: Vital Signs (12 hours) Temp Pulse Resp BP Pulse Ox 08/30/20 12:00 98.7 F 67 18 137/72 94 L 08/30/20 08:10 98.0 F 70 14 169/74 H 93 L 08/30/20 08:00 93 L 08/30/20 05:04 97.8 F 73 18 142/84 H 91 L Weight Weight 169 lb 8 oz Result Diagrams: 08/30/20 05:14 08/30/20 05:14 Hospitalist ROS - Medication Medications: Active Medications Generic Name Dose Route Start Last Admin Trade Name Freq PRN Reason Stop Dose Admin Acetaminophen 650 mg 08/28/20 20:53 08/29/20 20:58 Acetaminophen 325 Mg Tab PO 650 mg Q4H PRN Administration Headache/Fever/Mild Pain (1-3) Hydrocodone Bitart/Acetaminophen 1 tab 08/28/20 20:53 08/30/20 08:26 Hydrocodone/Acetaminophen 5/325 Mg Tablet PO 1 tab Q4H PRN Administration Moderate Pain (4-6) Benztropine Mesylate 0.5 mg 08/29/20 09:00 08/30/20 08:04 Benztropine 1 Mg Tab PO 0.5 mg BID ELEAZAR Administration Carbamazepine 200 mg 08/28/20 21:00 08/30/20 08:05 Carbamazepine 200 Mg Tab PO 200 mg BID ELEAZAR Administration Carbidopa/Levodopa 1 tab 08/29/20 09:00 08/30/20 08:06 Carbidopa/Levodopa 25-250 Mg Tablet PO 1 tab TID ELEAZAR Administration Dexamethasone 6 mg 08/28/20 21:30 08/29/20 20:59 Dexamethasone 4 Mg/Ml Vial SLOW IVP 6 mg Q24H ELEAZAR Administration Duloxetine HCl 60 mg 08/29/20 09:00 08/30/20 08:05 Duloxetine 60 Mg Cap PO 60 mg DAILY ELEAZAR Administration Gabapentin 100 mg 08/28/20 21:00 08/30/20 08:05 Gabapentin 100 Mg Cap PO 100 mg TID ELEAZAR Administration Ceftriaxone Sodium 1 gm/ 100 mls @ 200 mls/hr 08/28/20 22:00 08/29/20 20:55 Sodium Chloride IVPB 100 mls 2200 ELEAZAR Administration Octreotide Acetate 1,250 mcg/ 251.25 mls @ 10.05 mls/hr 08/29/20 02:30 08/30/20 05:28 Sodium Chloride IVPB 251.25 mls INF ELEAZAR Administration 50 MCG/HR Azithromycin 500 mg/ Sodium 250 mls @ 250 mls/hr 08/29/20 17:00 08/29/20 17:12 Chloride IVPB 250 mls 1700 ELEAZAR Administration Lisinopril 20 mg 08/28/20 21:00 08/30/20 08:05 Lisinopril 20 Mg Tab PO 20 mg BID ELEAZAR Administration Oxcarbazepine 150 mg 08/29/20 09:00 08/30/20 08:06 Oxcarbazepine 150 Mg Tab PO 150 mg DAILY ELEAZAR Administration Pantoprazole Sodium 40 mg 08/28/20 21:00 08/30/20 08:06 Pantoprazole 40 Mg Vial IVP 40 mg Q12HR ELEAZAR Administration Sodium Chloride 10 ml 08/29/20 09:00 08/30/20 08:07 Flush - Normal Saline 10 Ml Syringe IVF 10 ml Q12HR ELEAZAR Administration Sodium Chloride 1 gm 08/30/20 09:00 08/30/20 08:06 Sodium Chloride 1 Gm Tab PO 1 gm DAILY ELEAZAR Administration Trazodone HCl 150 mg 08/29/20 21:00 08/29/20 20:58 Trazodone Hcl 50 Mg Tab PO 150 mg HS ELEAZAR Administration - Exam ENT: normocephalic atraumatic Neck: supple Respiratory: normal chest expansion, no tachypnea Extremities: no cyanosis Hosp A/P (1) COVID-19 Code(s): U07.1 - COVID-19 Status: Acute (2) GI bleed Code(s): K92.2 - GASTROINTESTINAL HEMORRHAGE, UNSPECIFIED Status: Acute (3) Anemia due to acute blood loss Code(s): D62 - ACUTE POSTHEMORRHAGIC ANEMIA Status: Acute (4) Metabolic encephalopathy Code(s): G93.41 - METABOLIC ENCEPHALOPATHY Status: Acute (5) SIADH (syndrome of inappropriate ADH production) Status: Acute (6) HTN (hypertension) Code(s): I10 - ESSENTIAL (PRIMARY) HYPERTENSION Status: Chronic Qualifiers: Hypertension type: essential hypertension Qualified Code(s): I10 - Essential (primary) hypertension (7) Hyponatremia Code(s): E87.1 - HYPO-OSMOLALITY AND HYPONATREMIA Status: Chronic (8) Parkinson disease Code(s): G20 - PARKINSON'S DISEASE Status: Chronic - Plan The patient is saturating well on room air and thus small COVID-19 specific therapy will be administered this time. Anemia due to GI bleeding is present. Continue monitor hemoglobin and transfuse for level less than 7. GI consulted. Sodium level is low due to SIADH. This appears to be chronic, however, in light of the patient's confusion, we will manage it with salt tablets and fluid restriction. 08/30: Pancytopenia and hyponatremia improving. The patient is saturating well on room air. GI recommended against any acute intervention at this time due to the patient's recent diagnosis of COVID-19. Monitor H&H and if no further episodes of bleeding, we will plan to discharge the patient.
[2020-08-30 16:33] LABS: Hemoglobin 7.5 g/dL (14.0-18.0); Mean Corpuscular HGB CONC 32.1 g/dL (32.0-36.0); Mean Corpuscular Hemoglobin 27.7 pg (27.0-31.0); Mean Corpuscular Volume 86.2 fL (78.0-98.0); Mean Platelet Volume 8.2 fL (7.4-10.4); Platelet Count 166 thou/uL (130-400); RBC Distribution Width 15.8 % (11.5-14.5); Red Blood Cell (RBC) Count 2.72 mill/uL (4.70-6.10); White Blood Cell (WBC) Count 3.8 thou/uL (4.8-10.8)
[2020-08-30] MEDS: Azithromycin 500 MG in Sodium Chloride 0.9% 250 ML 250 ML IVPB SCH (17:25)
[2020-08-30] MEDS: Dexamethasone 4 mg/ml Vial SLOW IVP SCH (20:59)
[2020-08-30] MEDS: traZODone HCl 50 MG TAB PO SCH (21:00)
[2020-08-30] MEDS: cefTRIAXone\\ROCEPHIN 1 GM in Sodium Chloride 0.9% 100 ML IVPB SCH (21:02)
--- NOTE | 2020-08-30 21:08 | PRG ---
DATE OF SERVICE: 08/30/2020 SUBJECTIVE: Mr. Cantu had a couple of bowel movements today, which were dark brown. OBJECTIVE: VITAL SIGNS: Temperature 98.7, pulse 67, blood pressure 137/72. GENERAL: He is in no acute distress. LUNGS: Clear to auscultation bilaterally. HEART: Regular rate and rhythm. ABDOMEN: Soft, nontender, and nondistended. Bowel sounds are present. EXTREMITIES: No lower extremity edema. LABORATORY DATA: Hemoglobin is 7.5. Creatinine 0.85. IMPRESSION: 1. Anemia. He has had dark stools, but these have been Hemoccult negative. His hemoglobin remained stable. He has no evidence of ongoing overt bleeding at this point. 2. COVID-19 infection. RECOMMENDATIONS: 1. The patient had EGD and colonoscopy in 2018 and will not require repeat endoscopy at this time. 2. Management of COVID per the primary service. 3. Check iron studies. 4. I will sign off for now. Please call if GI can be of assistance. Job ID: [id number]
[2020-08-31 06:05] LABS: #Lymphocytes 0.4 thou/uL (1.20-3.40); #Monocytes 0.2 thou/uL (0.11-0.59); #Neutrophils 1.6 thou/uL (1.40-6.50); %Eosinophils 0.1 % (0.0-10.0); %Lymphocytes 16.8 % (21.0-51.0); %Monocytes 9.8 % (0.0-10.0); %Neutrophils 73.3 % (42.0-75.0); Hemoglobin 7.6 g/dL (14.0-18.0); Mean Corpuscular HGB CONC 34.2 g/dL (32.0-36.0); Mean Corpuscular Hemoglobin 29.8 pg (27.0-31.0); Mean Corpuscular Volume 87.2 fL (78.0-98.0); Mean Platelet Volume 8.1 fL (7.4-10.4); Platelet Count 170 thou/uL (130-400); RBC Distribution Width 15.9 % (11.5-14.5); Red Blood Cell (RBC) Count 2.56 mill/uL (4.70-6.10); White Blood Cell (WBC) Count 2.1 thou/uL (4.8-10.8)
[2020-08-31 06:29] LABS: Anion Gap 12 mmol/L (10-20); BUN (Urea Nitrogen) 13 mg/dL (8.4-25.7); Calc. Creatinine Clearance 96 mL/min (70-130); Calcium 7.9 mg/dL (7.8-10.44); Carbon Dioxide 25 mmol/L (23-31); Chloride 101 mmol/L (98-107); Glucose 143 mg/dL (83-110); Iron 18 ug/dL (65-175); Iron Binding Capacity, Total 341 mcg/dL (261-462); Potassium 4.7 mmol/L (3.5-5.1); Sodium 133 mmol/L (136-145)
[2020-08-31] MEDS ORDERED: Magnesium 2 GM/50 ML 2 GM in Premix Bag 1 BAG IVPB SCH (07:00)
[2020-08-31] MEDS: Pantoprazole 40 MG VIAL IVP SCH (08:49)
[2020-08-31] MEDS: DULoxetine 60 MG CAP PO SCH (08:50)
[2020-08-31] MEDS: Gabapentin 100 MG CAP PO SCH ×2 (08:50→14:36)
[2020-08-31] MEDS: Lisinopril 20 MG TAB PO SCH (08:51)
[2020-08-31] MEDS: Benztropine 1 MG TAB PO SCH (08:51)
[2020-08-31] MEDS: carBAMazepine 200 MG TAB PO SCH (08:51)
[2020-08-31] MEDS: Carbidopa/Levodopa 25-250 mg Tablet PO SCH ×2 (08:51→14:37)
[2020-08-31] MEDS: OXcarbazepine 150 MG TAB PO SCH (08:51)
[2020-08-31] MEDS: Sodium Chloride 1 GM TAB PO SCH (08:51)
[2020-08-31] MEDS: Octreotide Acetate 1,250 MCG in Sodium Chloride 0.9% 250 ML 250 ML IVPB SCH (08:56)
[2020-08-31 14:48] VITALS: BP 145/80; TEMP 97.9
--- NOTE | 2020-08-31 15:45 | PDOC.HOSPP ---
- Subjective Encounter Date: 08/31/20 Subjective: No new events overnight. - Objective Vital Signs & Weight: Vital Signs (12 hours) Temp Pulse Pulse Resp BP BP Pulse Ox 08/31/20 14:48 97.9 F 71 16 145/80 H 08/31/20 13:21 98.0 F 75 18 136/75 93 L 08/31/20 12:15 97.2 F L 66 16 158/81 H 08/31/20 12:00 97.7 F 67 16 146/79 H 08/31/20 09:05 97.9 F 75 20 164/80 H 92 L 08/31/20 08:51 92 L Weight Weight 169 lb 8 oz I&O: 08/30/20 08/31/20 09/01/20 06:59 06:59 06:59 Intake Total 350 Balance 350 Result Diagrams: 08/31/20 05:54 08/31/20 05:54 Hospitalist ROS - Medication Medications: Active Medications Generic Name Dose Route Start Last Admin Trade Name Freq PRN Reason Stop Dose Admin Acetaminophen 650 mg 08/28/20 20:53 08/29/20 20:58 Acetaminophen 325 Mg Tab PO 650 mg Q4H PRN Administration Headache/Fever/Mild Pain (1-3) Hydrocodone Bitart/Acetaminophen 1 tab 08/28/20 20:53 08/30/20 18:16 Hydrocodone/Acetaminophen 5/325 Mg Tablet PO 1 tab Q4H PRN Administration Moderate Pain (4-6) Benztropine Mesylate 0.5 mg 08/29/20 09:00 08/31/20 08:51 Benztropine 1 Mg Tab PO 0.5 mg BID ELEAZAR Administration Carbamazepine 200 mg 08/28/20 21:00 08/31/20 08:51 Carbamazepine 200 Mg Tab PO 200 mg BID ELEAZAR Administration Carbidopa/Levodopa 1 tab 08/29/20 09:00 08/31/20 14:37 Carbidopa/Levodopa 25-250 Mg Tablet PO 1 tab TID ELEAZAR Administration Dexamethasone 6 mg 08/28/20 21:30 08/30/20 20:59 Dexamethasone 4 Mg/Ml Vial SLOW IVP 6 mg Q24H ELEAZAR Administration Duloxetine HCl 60 mg 08/29/20 09:00 08/31/20 08:50 Duloxetine 60 Mg Cap PO 60 mg DAILY ELEAZAR Administration Gabapentin 100 mg 08/28/20 21:00 08/31/20 14:36 Gabapentin 100 Mg Cap PO 100 mg TID ELEAZAR Administration Ceftriaxone Sodium 1 gm/ 100 mls @ 200 mls/hr 08/28/20 22:00 08/30/20 21:02 Sodium Chloride IVPB 100 mls 2200 ELEAZAR Administration Azithromycin 500 mg/ Sodium 250 mls @ 250 mls/hr 08/29/20 17:00 08/30/20 17:25 Chloride IVPB 250 mls 1700 ELEAZAR Administration Lisinopril 20 mg 08/28/20 21:00 08/31/20 08:51 Lisinopril 20 Mg Tab PO 20 mg BID ELEAZAR Administration Oxcarbazepine 150 mg 08/29/20 09:00 08/31/20 08:51 Oxcarbazepine 150 Mg Tab PO 150 mg DAILY ELEAZAR Administration Pantoprazole Sodium 40 mg 08/28/20 21:00 08/31/20 08:49 Pantoprazole 40 Mg Vial IVP 40 mg Q12HR ELEAZAR Administration Sodium Chloride 10 ml 08/29/20 09:00 08/31/20 08:52 Flush - Normal Saline 10 Ml Syringe IVF 10 ml Q12HR ELEAZAR Administration Sodium Chloride 1 gm 08/30/20 09:00 08/31/20 08:51 Sodium Chloride 1 Gm Tab PO 1 gm DAILY ELEAZAR Administration Trazodone HCl 150 mg 08/29/20 21:00 08/30/20 21:00 Trazodone Hcl 50 Mg Tab PO 150 mg HS ELEAZAR Administration Hosp A/P (1) COVID-19 Code(s): U07.1 - COVID-19 Status: Acute (2) GI bleed Code(s): K92.2 - GASTROINTESTINAL HEMORRHAGE, UNSPECIFIED Status: Acute (3) Anemia due to acute blood loss Code(s): D62 - ACUTE POSTHEMORRHAGIC ANEMIA Status: Acute (4) Metabolic encephalopathy Code(s): G93.41 - METABOLIC ENCEPHALOPATHY Status: Acute (5) SIADH (syndrome of inappropriate ADH production) Status: Acute (6) HTN (hypertension) Code(s): I10 - ESSENTIAL (PRIMARY) HYPERTENSION Status: Chronic Qualifiers: Hypertension type: essential hypertension Qualified Code(s): I10 - Essential (primary) hypertension (7) Hyponatremia Code(s): E87.1 - HYPO-OSMOLALITY AND HYPONATREMIA Status: Chronic (8) Parkinson disease Code(s): G20 - PARKINSON'S DISEASE Status: Chronic - Plan The patient is saturating well on room air and thus small COVID-19 specific therapy will be administered this time. Anemia due to GI bleeding is present. Continue monitor hemoglobin and transfuse for level less than 7. GI consulted. Sodium level is low due to SIADH. This appears to be chronic, however, in light of the patient's confusion, we will manage it with salt tablets and fluid restriction. 08/30: Pancytopenia and hyponatremia improving. The patient is saturating well on room air. GI recommended against any acute intervention at this time due to the patient's recent diagnosis of COVID-19. Monitor H&H and if no further episodes of bleeding, we will plan to discharge the patient.
--- NOTE | 2020-08-31 15:51 | PDOC.DS.DS ---
Provider - Provider Date of Admission: 08/28/20 16:25 Date of Discharge: 08/31/20 Admitting Provider: Carlos A Tam DO Primary Care Physician: Yuriy Diaz MD Course - Hospital Course Hospital Course: The patient is a 69-year-old male with past medical history of Parkinson's disease, hypertension, GERD, constipation, and HCV who was sent to the hospital due to worsening mental status and hypoxia. The patient was diagnosed with COVID-19 a week ago. Upon further evaluation, the patient was found to be anemic and nursing staff in the emergency department reported melanotic stools. The patient was admitted to the hospital and received 2 units of packed RBCs. He was evaluated by GI and outpatient follow-up was recommended after the patient recovers from COVID-19. The patient was not hypoxic and did not require any COVID-19 specific treatments. Resuscitation Status: 08/28/20 20:53 Resuscitation Status Routine Resuscitation Status: FULL: Full Resuscitation - Labs Lab Results: 08/31/20 05:54 08/31/20 05:54 Abnormal Lab Results - Last 48 hrs 08/28/20 16:02: Crossmatch See Detail 08/29/20 15:51: WBC 3.1 L, RBC 2.55 L, Hgb 7.3 L, Hct 21.9 L, RDW 15.7 H 08/30/20 05:14: Sodium 130 L, Carbon Dioxide 22 L 08/30/20 05:14: WBC 2.2 L, RBC 2.69 L, Hgb 7.5 L, Hct 23.3 L, RDW 15.9 H, Monocytes % 12.2 H, Lymphocytes # 0.5 L 08/30/20 16:22: WBC 3.8 L, RBC 2.72 L, Hgb 7.5 L, Hct 23.4 L, RDW 15.8 H 08/31/20 05:54: Sodium 133 L, Iron 18 L 08/31/20 05:54: WBC 2.1 L, RBC 2.56 L, Hgb 7.6 L, Hct 22.4 L, RDW 15.9 H, Lymphocytes % 16.8 L, Lymphocytes # 0.4 L 08/31/20 05:54: Ferritin 14.37 L Microbiology - Entire Visit 08/28/20 16:58 Stool - Pending Stool Occult Blood (RITESH) - Final - Physical Exam Vitals: Vital Signs (12 hours) Temp Pulse Pulse Resp BP BP Pulse Ox 08/31/20 14:48 97.9 F 71 16 145/80 H 08/31/20 13:21 98.0 F 75 18 136/75 93 L 08/31/20 12:15 97.2 F L 66 16 158/81 H 08/31/20 12:00 97.7 F 67 16 146/79 H 08/31/20 09:05 97.9 F 75 20 164/80 H 92 L 08/31/20 08:51 92 L Weight Weight 169 lb 8 oz Physical Exam: The patient was seen and examined on the day of discharge. Problem - Problem (1) COVID-19 Code(s): U07.1 - COVID-19 Status: Acute (2) GI bleed Code(s): K92.2 - GASTROINTESTINAL HEMORRHAGE, UNSPECIFIED Status: Acute (3) Anemia due to acute blood loss Code(s): D62 - ACUTE POSTHEMORRHAGIC ANEMIA Status: Acute (4) Metabolic encephalopathy Code(s): G93.41 - METABOLIC ENCEPHALOPATHY Status: Acute (5) SIADH (syndrome of inappropriate ADH production) Status: Acute (6) HTN (hypertension) Code(s): I10 - ESSENTIAL (PRIMARY) HYPERTENSION Status: Chronic Qualifiers: Hypertension type: essential hypertension Qualified Code(s): I10 - Essential (primary) hypertension (7) Hyponatremia Code(s): E87.1 - HYPO-OSMOLALITY AND HYPONATREMIA Status: Chronic (8) Parkinson disease Code(s): G20 - PARKINSON'S DISEASE Status: Chronic Plan - Discharge Medications Prescriptions: Pantoprazole [Protonix] 40 mg PO BID #60 tab Home Medications: Medication Instructions Recorded Confirmed Type Carbidopa/Levodopa 25 - 250 mg PO TID 11/01/17 08/29/20 History [Carbidopa-Levodopa 10-100 Tab] carBAMazepine 200 mg PO BID 11/01/17 08/29/20 History DULoxetine [Cymbalta] 60 mg PO DAILY 03/01/18 08/29/20 History traZODone HCl [Trazodone HCl] 150 mg PO HS 03/01/18 08/29/20 History Sodium Chloride 1 gm PO TID #12 03/04/18 08/29/20 Rx Amlodipine [Norvasc] 10 mg PO DAILY 09/21/18 08/29/20 History Celecoxib [Celebrex] 200 mg PO PRN PRN 09/21/18 08/29/20 History OXcarbazepine [Trileptal] 150 mg PO DAILY 09/21/18 08/29/20 History Polyethylene Glycol 3350 [Miralax] 17 gm PO DAILY 09/21/18 08/29/20 History fluPHENAZine Decanoate [Prolixin D] 25 mg IM Q28D 09/21/18 08/29/20 History Gabapentin 300 mg PO TID 10/09/18 08/29/20 History Aspirin [Ecotrin Low Strength] 81 mg PO DAILY 08/29/20 08/29/20 History Bisacodyl [Dulcolax] 5 mg PO DAILY 08/29/20 08/29/20 History Hydrochlorothiazide 12.5 mg PO DAILY 08/29/20 08/29/20 History Losartan Potassium [Cozaar] 100 mg PO DAILY 08/29/20 08/29/20 History Tamsulosin HCl [Flomax] 0.4 mg PO DAILY 08/29/20 08/29/20 History traMADol HCl [Tramadol HCl] 25 mg PO BID 08/29/20 08/29/20 History Pantoprazole [Protonix] 40 mg PO BID #60 tab 08/31/20 Rx Allergies: Tetracyclines Allergy (Unknown, Verified 08/28/20 19:33) - Follow up Plan Referrals: Yuriy Diaz MD [Primary Care Provider] - Disposition: CUSTODIAL/ASSISTED LIVING Quality - Care Measures CORE MEASURES:: N/A
[2020-08-31] MEDS: Azithromycin 500 MG in Sodium Chloride 0.9% 250 ML 250 ML IVPB SCH (17:29)
--- NOTE | 2020-09-02 10:50 | EKG ---
Test Reason : Blood Pressure : / mmHG Vent. Rate : 071 BPM Atrial Rate : 071 BPM P-R Int : 150 ms QRS Dur : 084 ms QT Int : 380 ms P-R-T Axes : 053 048 079 degrees QTc Int : 412 ms Normal sinus rhythm Normal ECG Confirmed by NORMAN MOFFETT, ROBB Raymundo ([id number]), film editor supervisor CODEY RODRIGUEZ ([id number]) on 09/02/2020 10:49:55 AM Referred By: Confirmed By:ROBB AUSTIN MD
== END 2020-08-31 18:27 | DRG 177 ==
LOC: ERS 14:35 → T4-A 16:19 → OBSVTOIN 16:25
PROVIDERS: ADMIT Family Medicine; ATTEND Family Medicine
PROC: 8E0ZXY6 Isolation (ICD-10-PCS; principal; 2020-08-28)
DX: U07.1 COVID-19 (principal); J12.89 Other viral pneumonia; G93.41 Metabolic encephalopathy; K92.2 Gastrointestinal hemorrhage, unspecified; D62 Acute posthemorrhagic anemia; E22.2 Syndrome of inappropriate secretion of antidiuretic hormone; D61.818 Other pancytopenia; K21.9 Gastro-esophageal reflux disease without esophagitis; I10 Essential (primary) hypertension; G20 Parkinson's disease; F39 Unspecified mood [affective] disorder; B19.20 Unspecified viral hepatitis C without hepatic coma
CPT/HCPCS: 36415; 36430; 70450; 71045; 80048; 80053; 81003; 82140; 82274; 82728; 83540; 83550; 83605; 83735; 83880; 84484; 85025; 85060; 85610; 85730; 86850; 86900; 86901; 93005; 94760; 96365; 96375; C9113; J0456; J0696; J1100; J2354; J3475; J3490; J7050; P9016

== ENCOUNTER 2021-01-02 20:41 | Inpatient (IN) | payer MEDICARE, MEDICAID ==
[~2021-01-02 20:41] MED LIST changes: +Heparin 1,000 UNITS/ML VIAL ONE; -ISOVUE-370 76%-LOCM 1 ML ONE
[2021-01-02 21:21] LABS: #Eosinphils 0.1 thou/uL (0.0-0.7); #Lymphocytes 0.6 thou/uL (1.20-3.40); #Monocytes 1.5 thou/uL (0.11-0.59); #Neutrophils 11.5 thou/uL (1.40-6.50); %Basophils 0.1 % (0.0-1.0); %Eosinophils 0.4 % (0.0-10.0); %Lymphocytes 4.5 % (21.0-51.0); %Monocytes 10.6 % (0.0-10.0); %Neutrophils 84.3 % (42.0-75.0); Hemoglobin 13.4 g/dL (14.0-18.0); Mean Corpuscular HGB CONC 33.5 g/dL (32.0-36.0); Mean Corpuscular Hemoglobin 30.2 pg (27.0-31.0); Mean Corpuscular Volume 90.2 fL (78.0-98.0); Mean Platelet Volume 8.3 fL (7.4-10.4); Platelet Count 182 thou/uL (130-400); RBC Distribution Width 16.7 % (11.5-14.5); Red Blood Cell (RBC) Count 4.42 mill/uL (4.70-6.10); White Blood Cell (WBC) Count 13.7 thou/uL (4.8-10.8)
[2021-01-02] MEDS ORDERED: Vancomycin 1 GM/200 ML BAG ONE (21:25)
[2021-01-02] MEDS ORDERED: Piperacillin/Tazobactam 3.375 GM VIAL ONE (21:25)
[2021-01-02 21:26] LABS: Bilirubin Negative (Negative); Blood, Urine 1+ (Negative); Clarity Turbid (Clear); Glucose, Urine (Dipstick) Normal (Negative); Ketone, Urine Negative (Negative); Leukocyte 500 Leu/uL (Negative); Nitrite 2+ (Negative); Protein, Urine (Dipstick) 30 mg/dL (Neg-Trace); Specific Gravity, Urine 1.015 (1.002-1.036); Squamous Epithelial 0-3 HPF (0-3); WBC/HPF Greater than 50 HPF (0-3); pH, Urine 7.5 (5.0-9.0)
[2021-01-02 21:27] LABS: Bacteria/HPF 4+ HPF (None Seen)
[2021-01-02 21:36] LABS: ALT (SGPT) 14 U/L (8-55); AST (SGOT) 12 U/L (5-34); Albumin 4.1 g/dL (3.4-4.8); Alkaline Phosphatase 88 U/L (40-110); Anion Gap 13 mmol/L (10-20); BUN (Urea Nitrogen) 14 mg/dL (8.4-25.7); Bilirubin, Total 0.5 mg/dL (0.2-1.2); Calc. Creatinine Clearance 0 mL/min (70-130); Calcium 9.1 mg/dL (7.8-10.44); Carbon Dioxide 25 mmol/L (23-31); Chloride 94 mmol/L (98-107); Globulin 2.7 g/dL (2.4-3.5); Glucose 137 mg/dL (83-110); Potassium 4.2 mmol/L (3.5-5.1); Protein, Total 6.8 g/dL (5.8-8.1); Sodium 128 mmol/L (136-145)
[2021-01-02] MEDS ORDERED: Ibuprofen 200 MG TAB ONE (22:07)
[2021-01-02] MEDS ORDERED: Ondansetron PF 4 MG/2 ML Vial IVP PRN (23:36)
[2021-01-03] MEDS: Sodium Chloride 0.9% 1,000 ML IV SCH ×2 (02:15→15:34)
[2021-01-03] MEDS: Piperacillin/Tazobactam 3.375 GM in Sodium Chloride 0.9% 100 ML IVPB SCH ×2 (04:53→11:21)
[2021-01-03 05:54] LABS: #Lymphocytes 0.7 thou/uL (1.20-3.40); #Monocytes 1.2 thou/uL (0.11-0.59); #Neutrophils 11.5 thou/uL (1.40-6.50); %Basophils 0.2 % (0.0-1.0); %Eosinophils 0.2 % (0.0-10.0); %Lymphocytes 5.2 % (21.0-51.0); %Monocytes 8.8 % (0.0-10.0); %Neutrophils 85.6 % (42.0-75.0); Hemoglobin 12.4 g/dL (14.0-18.0); Mean Corpuscular HGB CONC 34.3 g/dL (32.0-36.0); Mean Corpuscular Hemoglobin 31.1 pg (27.0-31.0); Mean Corpuscular Volume 90.8 fL (78.0-98.0); Mean Platelet Volume 8.3 fL (7.4-10.4); Platelet Count 158 thou/uL (130-400); RBC Distribution Width 16.9 % (11.5-14.5); Red Blood Cell (RBC) Count 3.98 mill/uL (4.70-6.10); White Blood Cell (WBC) Count 13.5 thou/uL (4.8-10.8)
[2021-01-03 05:55] LABS: Anion Gap 13 mmol/L (10-20); BUN (Urea Nitrogen) 11 mg/dL (8.4-25.7); Calc. Creatinine Clearance 0 mL/min (70-130); Calcium 8.7 mg/dL (7.8-10.44); Carbon Dioxide 22 mmol/L (23-31); Chloride 97 mmol/L (98-107); Glucose 123 mg/dL (83-110); Potassium 3.9 mmol/L (3.5-5.1); Sodium 128 mmol/L (136-145)
[2021-01-03 06:19] VITALS: BMI 24.3
[2021-01-03 06:33] LABS: SARS-CoV-2 PCR by NAA Not Detected (NotDetected)
[2021-01-03] MEDS ORDERED: carBAMazepine 200 MG TAB PO SCH (08:00)
[2021-01-03] MEDS ORDERED: Amlodipine 10 MG TAB PO SCH (09:00)
[2021-01-03] MEDS: Vancomycin 1.5 GRAM/300 ML BAG 1.5 GM in Premix Bag 1 BAG IVPB SCH ×2 (09:03→20:54)
[2021-01-03] MEDS: Gabapentin 100 MG CAP PO SCH ×2 (15:34→20:54)
[2021-01-03] MEDS: Carbidopa/Levodopa 25-100 mg Tablet PO SCH ×2 (15:34→20:56)
[2021-01-03] MEDS: MEROPENEM 1 GM/50 ML 1 GM in Premix Bag 1 BAG IVPB SCH ×2 (16:51→22:31)
[2021-01-03] MEDS: carBAMazepine 200 MG TAB PO SCH (20:56)
[2021-01-04] MEDS: Sodium Chloride 0.9% 1,000 ML IV SCH ×2 (01:32→16:00)
[2021-01-04] MEDS: Amlodipine 10 MG TAB PO SCH (05:16)
[2021-01-04] MEDS: Vancomycin 1.5 GRAM/300 ML BAG 1.5 GM in Premix Bag 1 BAG IVPB SCH (09:26)
[2021-01-04] MEDS: MEROPENEM 1 GM/50 ML 1 GM in Premix Bag 1 BAG IVPB SCH ×3 (09:27→23:58)
[2021-01-04 09:28] LABS: Anion Gap 12 mmol/L (10-20); BUN (Urea Nitrogen) 6 mg/dL (8.4-25.7); Calc. Creatinine Clearance 102 mL/min (70-130); Calcium 9.3 mg/dL (7.8-10.44); Carbon Dioxide 24 mmol/L (23-31); Chloride 97 mmol/L (98-107); Glucose 216 mg/dL (83-110); Potassium 3.5 mmol/L (3.5-5.1); Sodium 129 mmol/L (136-145); Vancomycin, Trough 9.4 ug/mL
[2021-01-04] MEDS: DULoxetine 60 MG CAP PO SCH (09:28)
[2021-01-04] MEDS: Losartan 25 MG TAB PO SCH (09:28)
[2021-01-04] MEDS: Aspirin 81 mg Enteric Coated Tablet PO SCH (09:28)
[2021-01-04] MEDS: carBAMazepine 200 MG TAB PO SCH ×2 (09:28→20:18)
[2021-01-04] MEDS: Tamsulosin HCl 0.4 MG CAP PO SCH (09:28)
[2021-01-04 09:29] LABS: #Eosinphils 0.1 thou/uL (0.0-0.7); #Lymphocytes 0.7 thou/uL (1.20-3.40); #Monocytes 0.5 thou/uL (0.11-0.59); #Neutrophils 6.1 thou/uL (1.40-6.50); %Basophils 0.5 % (0.0-1.0); %Eosinophils 1.6 % (0.0-10.0); %Lymphocytes 9.1 % (21.0-51.0); %Monocytes 7.1 % (0.0-10.0); %Neutrophils 81.7 % (42.0-75.0); Hemoglobin 13.5 g/dL (14.0-18.0); Mean Corpuscular HGB CONC 34.2 g/dL (32.0-36.0); Mean Corpuscular Hemoglobin 31.1 pg (27.0-31.0); Mean Corpuscular Volume 91.1 fL (78.0-98.0); Mean Platelet Volume 8.7 fL (7.4-10.4); Platelet Count 134 thou/uL (130-400); RBC Distribution Width 16.6 % (11.5-14.5); Red Blood Cell (RBC) Count 4.35 mill/uL (4.70-6.10); White Blood Cell (WBC) Count 7.4 thou/uL (4.8-10.8)
[2021-01-04] MEDS: Carbidopa/Levodopa 25-100 mg Tablet PO SCH ×3 (09:29→20:18)
[2021-01-04] MEDS: Gabapentin 100 MG CAP PO SCH ×3 (09:29→20:17)
[2021-01-04] MEDS: Bisacodyl 5 MG TAB PO SCH (09:30)
[2021-01-04] MEDS: hydrALAZINE 20 MG/ML VIAL SLOW IVP PRN (16:03)
[2021-01-04] MEDS ORDERED: VANCOMYCIN 1.25 GM/250 ML BAG 1.25 GM in Premix Bag 1 BAG IVPB SCH (17:00)
[2021-01-04] MEDS: Acetaminophen 325 MG TAB PO PRN (20:53)
[2021-01-05] MEDS: MEROPENEM 1 GM/50 ML 1 GM in Premix Bag 1 BAG IVPB SCH ×2 (06:00→14:32)
[2021-01-05] MEDS: hydrALAZINE 20 MG/ML VIAL SLOW IVP PRN (06:04)
[2021-01-05] MEDS: Sodium Chloride 0.9% 1,000 ML IV SCH (08:47)
[2021-01-05] MEDS: Amlodipine 10 MG TAB PO SCH (08:48)
[2021-01-05] MEDS: Aspirin 81 mg Enteric Coated Tablet PO SCH (08:48)
[2021-01-05] MEDS: Carbidopa/Levodopa 25-100 mg Tablet PO SCH ×2 (08:49→14:32)
[2021-01-05] MEDS: carBAMazepine 200 MG TAB PO SCH (08:49)
[2021-01-05] MEDS: Bisacodyl 5 MG TAB PO SCH (08:49)
[2021-01-05] MEDS: Gabapentin 100 MG CAP PO SCH ×2 (08:50→14:32)
[2021-01-05] MEDS: DULoxetine 60 MG CAP PO SCH (08:50)
[2021-01-05] MEDS: Losartan 25 MG TAB PO SCH (08:51)
[2021-01-05] MEDS: Tamsulosin HCl 0.4 MG CAP PO SCH (08:51)
[2021-01-05 09:11] LABS: #Basophils 0.1 thou/uL (0.0-0.2); #Eosinphils 0.1 thou/uL (0.0-0.7); #Monocytes 0.7 thou/uL (0.11-0.59); #Neutrophils 4.1 thou/uL (1.40-6.50); %Basophils 1.1 % (0.0-1.0); %Eosinophils 1.8 % (0.0-10.0); %Lymphocytes 17.4 % (21.0-51.0); %Monocytes 11.7 % (0.0-10.0); %Neutrophils 68.1 % (42.0-75.0); Hemoglobin 14.1 g/dL (14.0-18.0); Mean Corpuscular HGB CONC 34.1 g/dL (32.0-36.0); Mean Corpuscular Hemoglobin 30.6 pg (27.0-31.0); Mean Corpuscular Volume 89.9 fL (78.0-98.0); Mean Platelet Volume 8.5 fL (7.4-10.4); Platelet Count 163 thou/uL (130-400); RBC Distribution Width 16.5 % (11.5-14.5); Red Blood Cell (RBC) Count 4.61 mill/uL (4.70-6.10)
[2021-01-05 09:35] LABS: Anion Gap 12 mmol/L (10-20); BUN (Urea Nitrogen) 10 mg/dL (8.4-25.7); Calc. Creatinine Clearance 98 mL/min (70-130); Calcium 9.8 mg/dL (7.8-10.44); Carbon Dioxide 24 mmol/L (23-31); Chloride 94 mmol/L (98-107); Glucose 131 mg/dL (83-110); Potassium 3.6 mmol/L (3.5-5.1); Sodium 126 mmol/L (136-145)
[2021-01-05] MEDS: Acetaminophen 325 MG TAB PO PRN (14:39)
[2021-01-05 15:05] VITALS: BP 141/85; TEMP 97.9
== END 2021-01-05 15:15 | DRG 871 ==
LOC: ERS 20:41 → ERHOLD 22:27 → 2NO 01-03 00:58
PROVIDERS: ADMIT Internal Medicine; ATTEND Internal Medicine
PROC: 02HV33Z Insertion of Infusion Device into Superior Vena Cava, Percutaneous Approach (ICD-10-PCS; principal; 2021-01-04)
PROC: B548ZZA Ultrasonography of Superior Vena Cava, Guidance (ICD-10-PCS; 2021-01-04)
DX: A41.9 Sepsis, unspecified organism (principal); G93.41 Metabolic encephalopathy; N30.00 Acute cystitis without hematuria; E87.1 Hypo-osmolality and hyponatremia; K21.9 Gastro-esophageal reflux disease without esophagitis; I10 Essential (primary) hypertension; G20 Parkinson's disease; F43.10 Post-traumatic stress disorder, unspecified; B18.2 Chronic viral hepatitis C; Z20.822 Contact with and (suspected) exposure to COVID-19; F25.9 Schizoaffective disorder, unspecified; D64.9 Anemia, unspecified; K59.09 Other constipation; R65.20 Severe sepsis without septic shock; Z88.1 Allergy status to other antibiotic agents; Z79.82 Long term (current) use of aspirin; Z79.899 Other long term (current) drug therapy
CPT/HCPCS: 36415; 36569; 51701; 70450; 71045; 80048; 80053; 80202; 81003; 81015; 83605; 85025; 87040; 87070; 87077; 87086; 87149; 87186; 87205; 87635; 93005; 96365; 96366; C1751; J0360; J1644; J2185; J2543; J3370; J3490; U0003; U0005

== ENCOUNTER 2021-01-24 08:45 | Emergency (ER) | payer MEDICARE, MEDICAID ==
[2021-01-24] MEDS ORDERED: Midazolam HCl 5 mg/ml Vial ONE ×2 (08:50→13:16)
[2021-01-24] MEDS ORDERED: Norepinephrine 8 MG/0.9% NS 250 ML ONE (08:53)
[2021-01-24] MEDS ORDERED: fentaNYL Citrate/PF 2,000 MCG in Sodium Chloride 0.9% 60 ML IV SCH (09:00)
[2021-01-24 09:38] LABS: Analyzer IN Cardio ER; Base Excess (BEa) -8.6 mEq/L (-2.0 to +3.0); CO2 Tension 47.1 mmHg (35.0-45.0); Carboxyhemoglobin (COHb) 0.7 gm% (0.0-3.0); Hemoglobin (Hb) 14.3 g/dL (14.0-18.0); O2 Tension (PaO2), arterial 83.7 mmHg (> 70.0); Potassium - ABG Lab 4.35 mmol/L (3.70-5.30)
[2021-01-24 09:39] LABS: Puncture Site RRA; pH, Arterial 7.22 (7.35-7.45)
[2021-01-24 09:40] LABS: ALV-art Gradient 570.425 mmHg (0-20)
[2021-01-24 10:07] LABS: Bilirubin Negative (Negative); Blood, Urine Negative (Negative); Clarity Clear (Clear); Glucose, Urine (Dipstick) Normal (Negative); Ketone, Urine Negative (Negative); Leukocyte Negative Leu/uL (Negative); Nitrite Negative (Negative); Protein, Urine (Dipstick) 30 mg/dL (Neg-Trace); RBC/HPF 0-3 HPF (0-3); Specific Gravity, Urine 1.017 (1.002-1.036)
[2021-01-24 10:08] LABS: Bacteria/HPF None Seen HPF (None Seen); Squamous Epithelial 0-3 HPF (0-3); WBC/HPF 0-3 HPF (0-3)
[2021-01-24] MEDS ORDERED: Piperacillin/Tazobactam 4.5 GM VIAL ONE (10:08)
[2021-01-24 10:22] LABS: Amphetamine Detected (NotDetected); Barbiturates Screen Not Detected (NotDetected); Benzodiazepine Screen Not Detected (NotDetected); Cocaine Metabolite Screen Not Detected (NotDetected); Medtox Control Line Valid? VALID (VALID); Medtox Reader # READER 1; Methadone Not Detected (NotDetected); Methamphetamine Not Detected (NotDetected); Opiate Screen Not Detected (NotDetected); Oxycodone Screen Not Detected (NotDetected); Phencyclidine (PCP) Not Detected (NotDetected); THC/Cannabinoid Screen Not Detected (NotDetected); Tricyclic Screen Not Detected (NotDetected)
[2021-01-24 10:26] LABS: SARS-CoV-2 NAA Rapid Test Not Detected (NotDetected)
[2021-01-24] MEDS ORDERED: Vancomycin 1.5 GRAM/300 ML BAG 1.5 GM in Premix Bag 1 BAG IVPB SCH (10:30)
[2021-01-24 11:16] LABS: Hemoglobin 14.5 g/dL (14.0-18.0); Mean Corpuscular HGB CONC 32.5 g/dL (32.0-36.0); Mean Corpuscular Hemoglobin 30.9 pg (27.0-31.0); Mean Corpuscular Volume 95.3 fL (78.0-98.0); Mean Platelet Volume 7.2 fL (7.4-10.4); Platelet Count 199 thou/uL (130-400); RBC Distribution Width 14.2 % (11.5-14.5); Red Blood Cell (RBC) Count 4.68 mill/uL (4.70-6.10); White Blood Cell (WBC) Count 3.2 thou/uL (4.8-10.8)
[2021-01-24 11:29] LABS: Albumin 3.4 g/dL (3.4-4.8)
[2021-01-24 11:30] LABS: Chloride 92 mmol/L (98-107); Potassium 4.8 mmol/L (3.5-5.1); Sodium 123 mmol/L (136-145)
[2021-01-24 11:31] LABS: Calcium 8.9 mg/dL (7.8-10.44)
[2021-01-24 11:32] LABS: Glucose 125 mg/dL (83-110); Protein, Total 5.6 g/dL (5.8-8.1)
[2021-01-24 11:33] LABS: Anion Gap 15 mmol/L (10-20); Bilirubin, Total 1.4 mg/dL (0.2-1.2)
[2021-01-24 11:34] LABS: Carbon Dioxide 21 mmol/L (23-31)
[2021-01-24 11:35] LABS: Alcohol Less than 10 mg/dL (Less than 10); Alkaline Phosphatase 78 U/L (40-110); Calc. Creatinine Clearance 0 mL/min (70-130)
[2021-01-24 11:37] LABS: AST (SGOT) 11 U/L (5-34); BUN (Urea Nitrogen) 23 mg/dL (8.4-25.7); Bilirubin, Direct 0.8 mg/dL (0.1-0.3)
[2021-01-24 11:38] LABS: ALT (SGPT) Less than 7 U/L (8-55); Acetaminophen Less than 6.0 mcg/mL (10.0-30.0); Salicylate Less than 8.0 mg/dL (15.0-30.0)
[2021-01-24 11:51] LABS: Band 28 % (5-11); Lymphocytes 13 % (21-51); MDiff Complete? YES; Monocytes 15 % (0-10); Neutrophil 27 % (42-75); Platelet Morphology Comment Appears Adequate; RBC Morphology Normal; Reactive Lymphocytes 17 % (0-10)
[2021-01-24 13:15] LABS: Lactic Acid 5.5 mmol/L (0.5-2.2)
== END 2021-01-24 15:16 | disposition admitted as inpatient to this hospital (09) ==
LOC: ERS 08:45
DX: A41.9 Sepsis, unspecified organism (principal); J96.90 Respiratory failure, unspecified, unspecified whether with hypoxia or hypercapnia; J18.9 Pneumonia, unspecified organism; K21.9 Gastro-esophageal reflux disease without esophagitis; I10 Essential (primary) hypertension; B18.2 Chronic viral hepatitis C; Z79.82 Long term (current) use of aspirin; Z79.899 Other long term (current) drug therapy
CPT/HCPCS: 0240U; 36415; 36600; 71045; 80048; 80306; 80307; 81003; 81015; 82805; 83605; 83880; 84484; 85025; 87040; 87086; 93005; 94002; J1956; J2250; J2543; J3010; J3370; J3490